=== PATIENT | male | born 1940 | race Caucasian/White ===

== ENCOUNTER 2017-06-10 09:00 | Outpatient (RCR) | payer MEDICARE, OTHER, SELFPAY ==
[2017-05-27 09:09] VITALS: BP 145/85; PULSE 105; RESP 18; TEMP 36.4; BMI 67.7
--- NOTE | 2017-05-27 11:26 | HP.PCM_ITS ---
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 Current Visit: Yes Code(s): L97.912 - Non-pressure chronic ulcer of unspecified part of right lower leg with fat layer exposed (2) Venous insufficiency Status: Chronic Current Visit: Yes Code(s): I87.2 - Venous insufficiency ( chronic) (peripheral) (3) Leg edema, right Status: Chronic Current Visit: Yes Code(s): R60.0 - Localized edema (4) Peripheral vascular disease Status: Chronic Current Visit: Yes Code(s): I73.9 - Peripheral vascular disease, unspecified (5) Type 2 diabetes mellitus with diabetic polyneuropathy Status: Chronic Current Visit: Yes Code(s): E11.42 - Type 2 diabetes mellitus with diabetic polyneuropathy (6) Malnutrition Status: Suspected Current Visit: Yes Code(s): E46 - Unspecified protein- calorie malnutrition History of Present Illness Date of Service: 05/27/17 Chief Complaint: Right leg ulcer History of Wound: This 77-year-old male with multiple comorbidities was seen today in clinic with his father for right leg wound. There is an onset of about 3 weeks ago. He reports this possibly started due to a spider bite but cannot prove this. He was [facility] at [facility] emergency room Department. He was started on Keflex and advised to discontinue doxycycline. He has been applying Silvadene and a compression dressing he reports a culture was not obtained. He denies claudication. He does have some rest paresthesias but has not been diagnosed in the past with neuropathy. He denies any other trauma or increased activity. He was provided with a 10 day course of the antibiotics. His primary care physician is Dr. Paola Adame. He admits he does scratch his legs on a regular basis. 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 Family history: Cancer, and diabetes, heart disease, hypertension Allergies/Adverse Reactions: Allergies No Known Allergies Allergy (Verified 05/27/17 09:50) Home Medications: Ambulatory Orders Medication Instructions Recorded Cephalexin [Keflex] 500 mg PO 05/27/17 Doxazosin Mesylate [Cardura] 4 mg PO QHS 05/27/17 Enalapril Maleate 10 mg PO 05/27/17 Insulin Lispro [Humalog] 16 unit 05/27/17 Lasix 40 05/27/17 Metformin HCl [Metformin HCl ER] 500 mg PO 05/27/17 Methimazole 10 mg PO 05/27/17 Metoprolol Succinate 50 mg PO 05/27/17 Warfarin [Coumadin (PBKC)] 5 mg PO DAILY 05/27/17 Smoking Status: Former smoker Review of Systems Constitutional: Denies: Chills, Weakness Cardiovascular: Reports: Edema. Denies: Claudication Musculoskeletal: Reports: Leg Pain. Denies: Joint Tenderness Skin: Reports: Pruritis, Skin Changes, Wounds Neurological: Reports: Balance problems, Numbness - Physical Exam Vital Signs Temp Pulse Resp BP 97.5 F L 105 H 18 145/85 H 05/27/17 09:09 05/27/17 09:09 05/27/17 09:09 05/27/17 09:09 General: Alert, Oriented x3, Cooperative HEENT: Atraumatic Extremities: Diminished Peripheral Pulses, Edema - Bilateral lower extremities pitting. No visible varicosities. There is hemosiderin deposits with some hyperpigmentation of bilateral lower extremities. Skin: Ulcer/ Wound - No purulence, no erythema, no streaking. There is subtle erythema periwound that is mild and diffuse. There is no crepitus on palpation in the compartments of the right lower extremity remain soft., - - Bilateral lower extremity skin is atrophic and hairless Wound Measurements and Assessment - Nurse 1 - General Ulcer Measurement Start: 05/27/17 09:09 Freq: Status: Active Protocol: Activity Type Activity Date Activity User E-Sign Co-Sign Detail Recorded Client Recorded Date Recorded By Document 05/27/17 09:09 DL [id number] 05/27/17 09:45 DL 05/27/17 09:09 Wound Center Nurse 1 [Ulcer Assessment Protocol: LAUREN.WD.LOC] #1 R [place] Cluster -Current Size (cm) - Length 9 -Current Size (cm) - Width 10 -Current Size (cm) - Depth 0.1 -Total Square Cm 90 -Photo Taken Yes -Classification - Thickness Full Thickness without Exposed Support Structure -Exudate Amt Medium (34-66%) -Exudate Type Serosanguineous -Wound Margin Distinct, Outline Attached -Granulation Amt Medium (34-66%) -Granulation Quality Red -Necrosis Amt Medium (34-66%) -Necrotic Tissue Type Adherent Slough -Structure Exposed N/A -Texture (Ro-wound Skin Appearance) Localized Edema -Moisture (Ro-wound Skin Appearance No Abnormality ) -Color (Ro-wound Skin Appearance) Erythema Rubor -Temperature (Ro-wound Skin No Abnormality Appearance) (Pt Warm) -Tenderness on Palpation (Ro-wound No Skin Appearance) -Ulcer Cleansing Wound Cleanser -Foul Odor after Cleansing No -Anesthetic Used 4% Lidocaine Solution [Edema Assessment] -Right Calf (cm) 40.5 -Right Ankle (cm) 21.3 -Left Calf (cm) 38 -Left Ankle (cm) 23.5 WC - Nurse 2 - General Ulcer CM Notes Start: 05/27/17 09:09 Freq: Status: Active Protocol: Activity Type Activity Date Activity User E-Sign Co-Sign Detail Recorded Client Recorded Date Recorded By Document 05/27/17 10:50 [id number] 05/27/17 11:15 05/27/17 10:50 Wound Center Nurse 2 [Procedure/Treatment] #1 R [place] Cluster -Time 11:09 -Correct Patient Yes -Correct Side, Site, Position Yes -Correct Procedure Yes -Procedure Performed Yes -Type of Procedure Debridement -Clinical Debridement Subcutaneous -Post Debridement Size (cm) - Length 9.1 -Post Debridement Size (cm) - Width 10.1 -Post Debridement Size (cm) - Depth 0.1 -Total Square Cm 91.91 -Wound/Ulcer Outcome Not Healed -Ulcer Cleansing Rinsed/ Irrigated with Saline -Foul Odor after Cleansing No -Bioengineered Tissue No -Topical Lidocaine (%) 4 -Bleeding Controlled with Pressure -Treatment Response Procedure Tolerated Well [See Physician Procedure note for Specifics] Pain Scale: 0-10 Numeric [Pain] -Is Patient Pain Free? Yes Musculoskeletal: No Tenderness to Palpation of Joints or Extremities, No Muscle Wasting, Muscle Wasting, - - No exposed bone or deep tissue with wound debridement Neurological: - - Altered sensation with 10 g Schwab Elda monofilament bilateral feet noted to 3 out of 5 randomly selected sites Psych/Mental Status: Normal Affect, Appropriate Debridement Note Post-Debridement Measurements/Treatment WC - Nurse 2 - General Ulcer CM Notes Start: 05/27/17 09:09 Freq: Status: Active Protocol: Activity Type Activity Date Activity User E-Sign Co-Sign Detail Recorded Client Recorded Date Recorded By Document 05/27/17 10:50 [id number] 05/27/17 11:15 05/27/17 10:50 Wound Center Nurse 2 #1 R [place] Cluster -Time 11:09 -Correct Patient Yes -Correct Side, Site, Position Yes -Correct Procedure Yes -Procedure Performed Yes -Type of Procedure Debridement -Clinical Debridement Subcutaneous -Post Debridement Size (cm) - Length 9.1 -Post Debridement Size (cm) - Width 10.1 -Post Debridement Size (cm) - Depth 0.1 -Total Square Cm 91.91 -Wound/Ulcer Outcome Not Healed -Ulcer Cleansing Rinsed/ Irrigated with Saline -Foul Odor after Cleansing No -Bioengineered Tissue No -Topical Lidocaine (%) 4 -Bleeding Controlled with Pressure -Treatment Response Procedure Tolerated Well Pain Scale: 0-10 Numeric Is Patient Pain Free? Yes Wound debrided: leg Laterality: Right Wound Grade/Stage: grade 1 Type of Debridement: Excisional debridement Anesthesia Used: 4% Lidocaine Solution Depth: in the subcutaneous layer Percentage of wound debrided: 100 Instrument Used: #15 blade Tissue Removed: Fibrous, devitalized subcutaneous, biofilm, slough Severity: Fat Layer Exposed Amount of bleeding with debridement: Mild Bleeding Controlled with: Pressure Patient tolerated procedure well Assessment/Plan Active Problems Ulcer of right lower extremity with fat layer exposed (Chronic) Venous insufficiency (Chronic) Leg edema, right (Chronic) Peripheral vascular disease (Chronic) Type 2 diabetes mellitus with diabetic polyneuropathy (Chronic) Assessment: right leg ulcer. leg edema. rule out venous insufficiency or peripheral vascular disease. diabetes with neurapathy. malnutrition suspected Plan: I reviewed and discussed the case with this patient as well as his son. Subcutaneous excisional debridement was performed as noted in the clinical panel. I reviewed the basics of wound healing and his treatment plan. I recommend obtaining the following diagnostic data to better understand his medical condition: CBC, CMP, hemoglobin A1c, venous Doppler with reflex evaluation, noninvasive arterial study. I recommend daily dressing care with hydrogel and Adaptic. I recommend compression consisting of Tubigrip. More aggressive compression will be considered after his vascular studies are completed. To elevate legs at rest and to avoid idle sitting or standing. To complete Keflex antibiotic course. A tissue culture was obtained today for MRSA , aerobic and anaerobic. I recommend nutritional supplementation and a prescription for Pedro was provided to optimize healing. He understands improved sugar control is also necessary for improved wound healing. To return to clinic in 1 week or call sooner if he has any questions or concerns. I reviewed his file from [facility] visit.
[2017-05-28 12:07] LABS: M R Staph aureus DNA By PCR Negative (Negative); Probe Check PASS; Specimen Processing Control PASS; Staph aureus DNA By PCR NEGATIVE (Negative)
[2017-06-03 11:02] VITALS: BP 151/93; PULSE 107; RESP 18; TEMP 36.7; BMI 67.7
--- NOTE | 2017-06-03 13:08 | PCM.WC.PN ---
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 Current Visit: Yes Code(s): L97.912 - Non-pressure chronic ulcer of unspecified part of right lower leg with fat layer exposed (2) Venous insufficiency Status: Chronic Current Visit: Yes Code(s): I87.2 - Venous insufficiency (chronic) (peripheral) (3) Leg edema, right Status: Chronic Current Visit: Yes Code(s): R60.0 - Localized edema (4) Peripheral vascular disease Status: Chronic Current Visit: Yes Code(s): I73.9 - Peripheral vascular disease, unspecified (5) Type 2 diabetes mellitus with diabetic polyneuropathy Status: Chronic Current Visit: Yes Code(s): E11.42 - Type 2 diabetes mellitus with diabetic polyneuropathy (6) Malnutrition Status: Suspected Current Visit: Yes Code(s): E46 - Unspecified protein-calorie malnutrition Type of Wound Date of Service: 06/03/17 Chief Complaint: Right leg ulcer History of Wound: This 77-year-old male with multiple comorbidities was seen today in clinic with his father for right leg wound. There is an onset of about 4 weeks ago. He denies fever, chill, nausea, vomiting, pain. He was not able to get his vascular studies or labs drawn yet. He is scheduled for June 14, 2017 for the vascular studies. His family helps him change his dressings as advised. Progress of Wound: Stable - Physical Exam Vital Signs Temp Pulse Resp BP 98.0 F 107 H 18 151/93 H 06/03/17 11:02 06/03/17 11:02 06/03/17 11:02 06/03/17 11:02 General: Alert, Oriented x3, Cooperative Extremities: No cyanosis, Capillary Refill Less than 3 Seconds, No Calf Tenderness - Negative Ricki and Urena right, Edema Skin: Ulcer/ Wound - Atrophic skin with scant excoriations. The wound bases are fibrous and pale granular base. There is no erythema, no maceration, no odor, no infection, no crepitus. Wound Measurements and Assessment WC - Nurse 1 - General Ulcer Measurement Start: 05/27/17 09:09 Freq: Status: Active Protocol: Activity Type Activity Date Activity User E-Sign Co-Sign Detail Recorded Client Recorded Date Recorded By Document 06/03/17 11:02 [id number] 06/03/17 11:16 06/03/17 11:02 Wound Center Nurse 1 [Ulcer Assessment] #1 R [place] Cluster -Combined with other wound No -Current Size (cm) - Length 8.0 -Current Size (cm) - Width 8.0 -Current Size (cm) - Depth 0.1 -Total Square Cm 64.00 -Photo Taken No -Epithelialization Small 1-33% -Tunneling No -Undermining/Tunneling No -Circular Undermining No -Exudate Amt Small (1-33%) -Exudate Type Serosanguineous -Wound Margin Flat & Intact -Granulation Amt Small (1-33%) -Granulation Quality [place] -Slough/Fibrin Yes -Necrosis Amt Large (67-100%) -Necrotic Tissue Type Adherent Slough -Structure Exposed N/A -Texture (Ro-wound Skin Appearance) Assessed Localized Edema Scarring -Moisture (Ro-wound Skin Appearance Assessed ) Dry/Scaly -Color (Ro-wound Skin Appearance) Assessed -Temperature (Ro-wound Skin No Abnormality Appearance) (Pt Warm) -Ulcer Cleansing Rinsed/ Irrigated with Saline -Foul Odor after Cleansing No -Anesthetic Used 4% Lidocaine Solution [Edema Assessment] -Lower Limb Edema Present Yes -Right Calf (cm) 37.6 -Right Ankle (cm) 23.3 -Left Calf (cm) 34.3 -Left Ankle (cm) 22.8 WC - Nurse 2 - General Ulcer CM Notes Start: 05/27/17 09:09 Freq: Status: Active Protocol: Activity Type Activity Date Activity User E-Sign Co-Sign Detail Recorded Client Recorded Date Recorded By Document 06/03/17 11:33 [id number] 06/03/17 11:37 06/03/17 11:33 Wound Center Nurse 2 [Procedure/Treatment] #1 R [place] Cluster -Time 11:35 -Correct Patient Yes -Correct Side, Site, Position Yes -Correct Procedure Yes -Procedure Performed Yes -Type of Procedure Debridement -Clinical Debridement Subcutaneous -Post Debridement Size (cm) - Length 8.1 -Post Debridement Size (cm) - Width 8.1 -Post Debridement Size (cm) - Depth 0.1 -Total Square Cm 65.61 -Wound/Ulcer Outcome Not Healed -Ulcer Cleansing Rinsed/ Irrigated with Saline -Foul Odor after Cleansing No -Bioengineered Tissue No -Bleeding Controlled with Pressure -Treatment Response Procedure Tolerated Well [See Physician Procedure note for Specifics] Pain Scale: 0-10 Numeric [Pain] -Is Patient Pain Free? Yes Musculoskeletal: No Tenderness to Palpation of Joints or Extremities, Muscle Wasting Neurological: - - Lack of epicritic sensation light touch Psych/Mental Status: Normal Affect, Appropriate Debridement Note Post-Debridement Measurements/Treatment WC - Nurse 2 - General Ulcer CM Notes Start: 05/27/17 09:09 Freq: Status: Active Protocol: Activity Type Activity Date Activity User E-Sign Co-Sign Detail Recorded Client Recorded Date Recorded By Document 05/27/17 10:50 TM [id number] 05/27/17 11:15 TM Document 06/03/17 11:33 [id number] 06/03/17 11:37 05/27/17 06/03/17 10:50 11:33 Wound Center Nurse 2 #1 Adalberto Bust[place]os Cluster -Time 11:09 11:35 -Correct Patient Yes Yes -Correct Side, Site, Position Yes Yes -Correct Procedure Yes Yes -Procedure Performed Yes Yes -Type of Procedure Debridement Debridement -Clinical Debridement Subcutaneous Subcutaneous -Post Debridement Size (cm) - Length 9.1 8.1 -Post Debridement Size (cm) - Width 10.1 8.1 -Post Debridement Size (cm) - Depth 0.1 0.1 -Total Square Cm 91.91 65.61 -Wound/Ulcer Outcome Not Healed Not Healed -Ulcer Cleansing Rinsed/ Rinsed/ Irrigated with Irrigated with Saline Saline -Foul Odor after Cleansing No No -Bioengineered Tissue No No -Topical Lidocaine (%) 4 -Bleeding Controlled with Pressure Pressure -Treatment Response Procedure Procedure Tolerated Well Tolerated Well Pain Scale: 0-10 Numeric Is Patient Pain Free? 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 leg edema. rule out venous insufficiency or peripheral vascular disease. diabetes with neurapathy. malnutrition suspected Plan: I reviewed and discussed the case with this patient as well as his son. Subcutaneous excisional debridement was performed as noted in the clinical panel. I reviewed the basics of wound healing and his treatment plan. I recommend obtaining the following diagnostic data to better understand his medical condition: CBC, CMP, hemoglobin A1c, venous Doppler with reflex evaluation, noninvasive arterial study. These are all pending. I recommend daily dressing care with hydrogel and Adaptic. Application and approval for advanced wound care product epi fix was initiated and this is pending to facilitate healing. I recommend compression consisting of Tubigrip. More aggressive compression will be considered after his vascular studies are completed. To elevate legs at rest and to avoid idle sitting or standing. Additional antibiotics are not recommended at this time and there are lack of clinical signs of infection. A tissue culture was obtained last week for evaluation for MRSA, aerobic and anaerobic. No bacterial growth were identified. I recommend nutritional supplementation and a prescription for Pedro was provided to optimize healing. To continue up to 2 daily. He understands improved glycemic control is also necessary for improved wound healing. To return to clinic in 1 week or call sooner if he has any questions or concerns. I reviewed his file from [facility] visit.
--- NOTE | 2017-06-03 13:12 | PN.PCM_ITS ---
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 Current Visit: Yes Code(s): L97.912 - Non-pressure chronic ulcer of unspecified part of right lower leg with fat layer exposed (2) Venous insufficiency Status: Chronic Current Visit: Yes Code(s): I87.2 - Venous insufficiency ( chronic) (peripheral) (3) Leg edema, right Status: Chronic Current Visit: Yes Code(s): R60.0 - Localized edema (4) Peripheral vascular disease Status: Chronic Current Visit: Yes Code(s): I73.9 - Peripheral vascular disease, unspecified (5) Type 2 diabetes mellitus with diabetic polyneuropathy Status: Chronic Current Visit: Yes Code(s): E11.42 - Type 2 diabetes mellitus with diabetic polyneuropathy (6) Malnutrition Status: Suspected Current Visit: Yes Code(s): E46 - Unspecified protein- calorie malnutrition Type of Wound Date of Service: 06/03/17 Chief Complaint: Right leg ulcer History of Wound: This 77-year-old male with multiple comorbidities was seen today in clinic with his father for right leg wound. There is an onset of about 4 weeks ago. He denies fever, chill, nausea, vomiting, pain. He was not able to get his vascular studies or labs drawn yet. He is scheduled for June 14, 2017 for the vascular studies. His family helps him change his dressings as advised. Progress of Wound: Stable - Physical Exam Vital Signs Temp Pulse Resp BP 98.0 F 107 H 18 151/93 H 06/03/17 11:02 06/03/17 11:02 06/03/17 11:02 06/03/17 11:02 General: Alert, Oriented x3, Cooperative Extremities: No cyanosis, Capillary Refill Less than 3 Seconds, No Calf Tenderness - Negative Ricki and Urena right, Edema Skin: Ulcer/ Wound - Atrophic skin with scant excoriations. The wound bases are fibrous and pale granular base. There is no erythema, no maceration, no odor, no infection, no crepitus. Wound Measurements and Assessment WC - Nurse 1 - General Ulcer Measurement Start: 05/27/17 09:09 Freq: Status: Active Protocol: Activity Type Activity Date Activity User E-Sign Co-Sign Detail Recorded Client Recorded Date Recorded By Document 06/03/17 11:02 [id number] 06/03/17 11:16 06/03/17 11:02 Wound Center Nurse 1 [Ulcer Assessment] #1 R [place] Cluster -Combined with other wound No -Current Size (cm) - Length 8.0 -Current Size (cm) - Width 8.0 -Current Size (cm) - Depth 0.1 -Total Square Cm 64.00 -Photo Taken No -Epithelialization Small 1-33% -Tunneling No -Undermining/Tunneling No -Circular Undermining No -Exudate Amt Small (1-33%) -Exudate Type Serosanguineous -Wound Margin Flat & Intact -Granulation Amt Small (1-33%) -Granulation Quality Mallard -Slough/Fibrin Yes -Necrosis Amt Large (67-100%) -Necrotic Tissue Type Adherent Slough -Structure Exposed N/A -Texture (Ro-wound Skin Appearance) Assessed Localized Edema Scarring -Moisture (Ro-wound Skin Appearance Assessed ) Dry/Scaly -Color (Ro-wound Skin Appearance) Assessed -Temperature (Ro-wound Skin No Abnormality Appearance) (Pt Warm) -Ulcer Cleansing Rinsed/ Irrigated with Saline -Foul Odor after Cleansing No -Anesthetic Used 4% Lidocaine Solution [Edema Assessment] -Lower Limb Edema Present Yes -Right Calf (cm) 37.6 -Right Ankle (cm) 23.3 -Left Calf (cm) 34.3 -Left Ankle (cm) 22.8 WC - Nurse 2 - General Ulcer CM Notes Start: 05/27/17 09:09 Freq: Status: Active Protocol: Activity Type Activity Date Activity User E-Sign Co-Sign Detail Recorded Client Recorded Date Recorded By Document 06/03/17 11:33 [id number] 06/03/17 11:37 06/03/17 11:33 Wound Center Nurse 2 [Procedure/Treatment] #1 R [place] Cluster -Time 11:35 -Correct Patient Yes -Correct Side, Site, Position Yes -Correct Procedure Yes -Procedure Performed Yes -Type of Procedure Debridement -Clinical Debridement Subcutaneous -Post Debridement Size (cm) - Length 8.1 -Post Debridement Size (cm) - Width 8.1 -Post Debridement Size (cm) - Depth 0.1 -Total Square Cm 65.61 -Wound/Ulcer Outcome Not Healed -Ulcer Cleansing Rinsed/ Irrigated with Saline -Foul Odor after Cleansing No -Bioengineered Tissue No -Bleeding Controlled with Pressure -Treatment Response Procedure Tolerated Well [See Physician Procedure note for Specifics] Pain Scale: 0-10 Numeric [Pain] -Is Patient Pain Free? Yes Musculoskeletal: No Tenderness to Palpation of Joints or Extremities, Muscle Wasting Neurological: - - Lack of epicritic sensation light touch Psych/Mental Status: Normal Affect, Appropriate Debridement Note Post-Debridement Measurements/Treatment WC - Nurse 2 - General Ulcer CM Notes Start: 05/27/17 09:09 Freq: Status: Active Protocol: Activity Type Activity Date Activity User E-Sign Co-Sign Detail Recorded Client Recorded Date Recorded By Document 05/27/17 10:50 TM [id number] 05/27/17 11:15 TM Document 06/03/17 11:33 JF [id number] 06/03/17 11:37 05/27/17 06/03/17 10:50 11:33 Wound Center Nurse 2 #1 Adalberto Bustillos Cluster -Time 11:09 11:35 -Correct Patient Yes Yes -Correct Side, Site, Position Yes Yes -Correct Procedure Yes Yes -Procedure Performed Yes Yes -Type of Procedure Debridement Debridement -Clinical Debridement Subcutaneous Subcutaneous -Post Debridement Size (cm) - Length 9.1 8.1 -Post Debridement Size (cm) - Width 10.1 8.1 -Post Debridement Size (cm) - Depth 0.1 0.1 -Total Square Cm 91.91 65.61 -Wound/Ulcer Outcome Not Healed Not Healed -Ulcer Cleansing Rinsed/ Rinsed/ Irrigated with Irrigated with Saline Saline -Foul Odor after Cleansing No No -Bioengineered Tissue No No -Topical Lidocaine (%) 4 -Bleeding Controlled with Pressure Pressure -Treatment Response Procedure Procedure Tolerated Well Tolerated Well Pain Scale: 0-10 Numeric Is Patient Pain Free? 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 leg edema. rule out venous insufficiency or peripheral vascular disease. diabetes with neurapathy. malnutrition suspected Plan: I reviewed and discussed the case with this patient as well as his son. Subcutaneous excisional debridement was performed as noted in the clinical panel. I reviewed the basics of wound healing and his treatment plan. I recommend obtaining the following diagnostic data to better understand his medical condition: CBC, CMP, hemoglobin A1c, venous Doppler with reflex evaluation, noninvasive arterial study. These are all pending. I recommend daily dressing care with hydrogel and Adaptic. Application and approval for advanced wound care product epi fix was initiated and this is pending to facilitate healing. I recommend compression consisting of Tubigrip. More aggressive compression will be considered after his vascular studies are completed. To elevate legs at rest and to avoid idle sitting or standing. Additional antibiotics are not recommended at this time and there are lack of clinical signs of infection. A tissue culture was obtained last week for evaluation for MRSA, aerobic and anaerobic. No bacterial growth were identified. I recommend nutritional supplementation and a prescription for Pedro was provided to optimize healing. To continue up to 2 daily. He understands improved glycemic control is also necessary for improved wound healing. To return to clinic in 1 week or call sooner if he has any questions or concerns. I reviewed his file from [facility] visit.
[2017-06-10 09:17] VITALS: BP 148/80; PULSE 68; RESP 18; TEMP 35.5; BMI 67.7
--- NOTE | 2017-06-10 11:44 | PN.PCM_ITS ---
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 Current Visit: Yes Code(s): L97.912 - Non-pressure chronic ulcer of unspecified part of right lower leg with fat layer exposed (2) Venous insufficiency Status: Chronic Current Visit: Yes Code(s): I87.2 - Venous insufficiency ( chronic) (peripheral) (3) Leg edema, right Status: Chronic Current Visit: Yes Code(s): R60.0 - Localized edema (4) Peripheral vascular disease Status: Chronic Current Visit: Yes Code(s): I73.9 - Peripheral vascular disease, unspecified (5) Type 2 diabetes mellitus with diabetic polyneuropathy Status: Chronic Current Visit: Yes Code(s): E11.42 - Type 2 diabetes mellitus with diabetic polyneuropathy (6) Malnutrition Status: Suspected Current Visit: Yes Code(s): E46 - Unspecified protein- calorie malnutrition Type of Wound Date of Service: 06/10/17 Chief Complaint: Right leg ulcer History of Wound: This 77-year-old male with multiple comorbidities was seen today in clinic with his father for right leg wound. There is an onset of about 4 weeks ago. He was not able to get his vascular studies or labs drawn yet. He is scheduled for June 14, 2017 for the vascular studies. His family helps him change his dressings as advised. He is with his son today. Progress of Wound: Stable - Physical Exam Vital Signs Temp Pulse Resp BP 96 F L 68 18 148/80 H 06/10/17 09:17 06/10/17 09:17 06/10/17 09:17 06/10/17 09:17 General: Alert, Oriented x3, Cooperative Extremities: No cyanosis, Capillary Refill Less than 3 Seconds, No Calf Tenderness, Diminished Peripheral Pulses, Edema Skin: Ulcer/ Wound - No purulence, no erythema, streaking, no odor. Peripheral skin is atrophic Wound Measurements and Assessment WC - Nurse 1 - General Ulcer Measurement Start: 05/27/17 09:09 Freq: Status: Active Protocol: Activity Type Activity Date Activity User E-Sign Co-Sign Detail Recorded Client Recorded Date Recorded By Document 06/10/17 09:17 [facility] [id number] 06/10/17 09:22 [facility] 06/10/17 09:17 Wound Center Nurse 1 [Ulcer Assessment] #1 R [place] Cluster -Combined with other wound No -Current Size (cm) - Length 8 -Current Size (cm) - Width 8 -Current Size (cm) - Depth 0.1 -Total Square Cm 64 -Photo Taken No -Epithelialization None Present -Tunneling No -Undermining/Tunneling No -Exudate Amt Small (1-33%) -Exudate Type Serosanguineous -Wound Margin Distinct, Outline Attached -Granulation Amt Small (1-33%) -Granulation Quality Red -Slough/Fibrin Yes -Necrosis Amt Large (67-100%) -Necrotic Tissue Type Adherent Slough -Structure Exposed None/Limited to Skin Breakdown -Texture (Ro-wound Skin Appearance) Scarring -Moisture (Ro-wound Skin Appearance Assessed ) Dry/Scaly -Color (Ro-wound Skin Appearance) Erythema -Temperature (Ro-wound Skin No Abnormality Appearance) (Pt Warm) -Tenderness on Palpation (Ro-wound No Skin Appearance) -Ulcer Cleansing Rinsed/ Irrigated with Saline -Foul Odor after Cleansing No -Anesthetic Used 4% Lidocaine Solution [Edema Assessment] -Lower Limb Edema Present Yes -Right Calf (cm) 36.3 -Right Ankle (cm) 22.7 WC - Nurse 2 - General Ulcer CM Notes Start: 05/27/17 09:09 Freq: Status: Active Protocol: Activity Type Activity Date Activity User E-Sign Co-Sign Detail Recorded Client Recorded Date Recorded By Document 06/10/17 09:44 GEOFF [id number] 06/10/17 09:46 GEOFF 06/10/17 09:44 Wound Center Nurse 2 [Procedure/Treatment] #1 R [place] Cluster -Time 09:44 -Correct Patient Yes -Correct Side, Site, Position Yes -Correct Procedure Yes -Procedure Performed Yes -Type of Procedure Debridement -Clinical Debridement Subcutaneous -Post Debridement Size (cm) - Length 8.1 -Post Debridement Size (cm) - Width 8.1 -Post Debridement Size (cm) - Depth 0.1 -Total Square Cm 65.61 -Wound/Ulcer Outcome Not Healed -Ulcer Cleansing Rinsed/ Irrigated with Saline -Foul Odor after Cleansing No -Bioengineered Tissue Yes -Type of bioengineered Tissue EPIFIX -Expiration Date 03/13/22 -Product Lot Number [id number] -Percent Used 100 -Saline Lot Number [id number] -Bleeding Controlled with Pressure -Treatment Response Procedure Tolerated Well [See Physician Procedure note for Specifics] Pain Scale: 0-10 Numeric [Pain] -Is Patient Pain Free? Yes Neurological: - - Lack of epicritic sensation light touch Psych/Mental Status: Normal Affect, Appropriate Debridement Note Post-Debridement Measurements/Treatment WC - Nurse 2 - General Ulcer CM Notes Start: 05/27/17 09:09 Freq: Status: Active Protocol: Activity Type Activity Date Activity User E-Sign Co-Sign Detail Recorded Client Recorded Date Recorded By Document 05/27/17 10:50 TM [id number] 05/27/17 11:15 TM Document 06/03/17 11:33 JF [id number] 06/03/17 11:37 Document 06/10/17 09:44 [id number] 06/10/17 09:46 05/27/17 06/03/17 06/10/17 10:50 11:33 09:44 Wound Center Nurse 2 #1 R [place] Cluster -Time 11:09 11:35 09:44 -Correct Patient Yes Yes Yes -Correct Side, Site, Position Yes Yes Yes -Correct Procedure Yes Yes Yes -Procedure Performed Yes Yes Yes -Type of Procedure Debridement Debridement Debridement -Clinical Debridement Subcutaneous Subcutaneous Subcutaneous -Post Debridement Size (cm) - Length 9.1 8.1 8.1 -Post Debridement Size (cm) - Width 10.1 8.1 8.1 -Post Debridement Size (cm) - Depth 0.1 0.1 0.1 -Total Square Cm 91.91 65.61 65.61 -Wound/Ulcer Outcome Not Healed Not Healed Not Healed -Ulcer Cleansing Rinsed/ Rinsed/ Rinsed/ Irrigated with Irrigated with Irrigated with Saline Saline Saline -Foul Odor after Cleansing No No No -Bioengineered Tissue No No Yes -Type of bioengineered Tissue EPIFIX -Expiration Date 03/13/22 -Product Lot Number [id number] -Percent Used 100 -Saline Lot Number [id number] -Topical Lidocaine (%) 4 -Bleeding Controlled with Pressure Pressure Pressure -Treatment Response Procedure Procedure Procedure Tolerated Well Tolerated Well Tolerated Well Pain Scale: 0-10 Numeric Is Patient Pain Free? Yes Yes Yes Wound debrided: leg cluster Laterality: Right - g Wound Grade/Stage: grade 1 Type of Debridement: Excisional debridement Anesthesia Used: 4% Lidocaine Solution Depth: in the subcutaneous layer Percentage of wound debrided: 100 Instrument Used: #15 blade Tissue Removed: fibrous, devitalized subcutaneous, biofilm, slough Severity: Fat Layer Exposed Amount of bleeding with debridement: Mild Bleeding Controlled with: Pressure Patient tolerated procedure well Assessment/Plan Active Problems Ulcer of right lower extremity with fat layer exposed (Chronic) Venous insufficiency (Chronic) Leg edema, right (Chronic) Peripheral vascular disease (Chronic) Type 2 diabetes mellitus with diabetic polyneuropathy (Chronic) Assessment: right leg ulcer with fat layer exposed. leg edema. rule out venous insufficiency or peripheral vascular disease. diabetes with neurapathy. malnutrition suspected Plan: I reviewed and discussed the case with this patient as well as his son. Subcutaneous excisional debridement was performed as noted in the clinical panel. Verbal consent was obtained for application of epi fix. This was applied according to standard protocol and was secured in place with Steri- Strips and wound veil. He tolerated this well. I reviewed the basics of wound healing and his treatment plan. I recommend obtaining the following diagnostic data to better understand his medical condition: CBC, CMP, hemoglobin A1c, venous Doppler with reflex evaluation, noninvasive arterial study. He was encouraged to complete the studies to improve his comprehensive treatment plan. I recommend compression consisting of Tubigrip. More aggressive compression will be considered after his vascular studies are completed. To elevate legs at rest and to avoid idle sitting or standing. Additional antibiotics are not recommended at this time and there are lack of clinical signs of infection. A tissue culture was obtained for evaluation for MRSA, aerobic and anaerobic. No bacterial growth were identified. I recommend nutritional supplementation and a prescription for Pedro was provided to optimize healing. To continue up to 2 daily. He understands improved glycemic control is also necessary for improved wound healing. To return to clinic in 1 week or call sooner if he has any questions or concerns. I reviewed his file from [facility] visit.
== END 2017-06-10 23:59 ==
LOC: WC 09:00
PROVIDERS: PCP Internal Medicine; Visit Provider Podiatrist
DX: E11.622 Type 2 diabetes mellitus with other skin ulcer (principal); E11.42 Type 2 diabetes mellitus with diabetic polyneuropathy; E11.51 Type 2 diabetes mellitus with diabetic peripheral angiopathy without gangrene; L97.812 Non-pressure chronic ulcer of other part of right lower leg with fat layer exposed; R60.0 Localized edema; E78.5 Hyperlipidemia, unspecified; Z85.46 Personal history of malignant neoplasm of prostate; Z86.73 Personal history of transient ischemic attack (TIA), and cerebral infarction without residual deficits; I10 Essential (primary) hypertension; Z79.899 Other long term (current) drug therapy; Z79.4 Long term (current) use of insulin; Z87.891 Personal history of nicotine dependence; L29.9 Pruritus, unspecified; R09.89 Other specified symptoms and signs involving the circulatory and respiratory systems
CPT/HCPCS: 11042; 11045; 15271; 87070; 87075; 87205; 87640; 99203; Q4131; G0463

== ENCOUNTER → 2017-06-11 09:50 | Outpatient (CLI) | payer MEDICARE, OTHER, SELFPAY ==
--- NOTE | 2017-06-11 09:54 | VDLE_ITS ---
Reason For Study: Non-healing wound RIGHT LEFT CFV is compressible, spontaneous, phasic, CFV is compressible, spontaneous, phasic, competent and demonstrates normal competent, and demonstrates normal augmentation. augmentation. FV is compressible, spontaneous, phasic, FV is compressible, spontaneous, phasic, competent and demonstrates normal competent and demonstrates normal augmentation. augmentation. POP V is compressible, spontaneous, phasic, POP V is compressible, spontaneous, phasic, competent and demonstrates normal competent and demonstrates normal augmentation. augmentation. T/P Trunk is compressible. T/P Trunk is compressible. PTV is compressible. PTV is compressible. RT PerV is compressible. LT PerV is compressible. SFJ is competent SFJ is INCOMPETENT with reflux greater GSV is INCOMPETENT with reflux greater than .5 sec than .5 sec and diameter of .40 x .40 cm GSV is competent SSV is competent. SSV is competent. Procedure Exam performed in department. A preliminary report was called and/or faxed to [facility]. Interpretation Summary Deep veins of the lower extremities are bilaterally patent and compressible segmentally. There is no evidence of deep vein thrombosis on either side. Valvular competence appears intact within the proximal deep venous systems bilaterally. The greater saphenous veins appear bilaterally patent and compressible segmentally. The right sapheno-femoral junction is competent . The left sapheno- femoral junction is incompetent . The right greater saphenous vein appears segmentally incompetent. The left greater saphenous vein appears segmentally competent. Small saphenous veins are patent and competent bilaterally. Ordering Physician: Angelia Castro Referring Physician: Angelia Castro Performed By: Nichole Madrigal RVT
--- NOTE | 2017-06-14 11:27 | LEAS ---
Arterial Study - Arterial Study Arterial Study: This is a 77-year-old male with a history of diabetes mellitus and peripheral arterial disease. The patient presents with a chronic nonhealing wound of the right lower extremity. Suspecting the presence of atherosclerotic peripheral arterial occlusive disease, the patient was brought to the noninvasive vascular laboratory at this time for the purpose of bilateral noninvasive lower extremity arterial assessment. Doppler signal assessment was used to evaluate the pulses at ankle level bilaterally. On the right, the posterior tibial and dorsalis pedis pulses were biphasic. On the left, the posterior tibial and dorsalis pedis pulses were triphasic. Segmental limb pressures were obtained bilaterally. The right ankle pressure, as determined by posterior tibial pulse, was measured at 132 mmHg. The right ankle pressure, as determined by dorsalis pedis pulse, was measured at 155 mmHg. The right digital pressure was measured at 98 mmHg. The left ankle pressure, as determined by posterior tibial pulse, was measured at 155 mmHg. The left ankle pressure, as determined by dorsalis pedis pulse, was measured at 145 mmHg. The left digital pressure was measured at 117 mmHg. Pulse-volume recordings were obtained bilaterally and segmentally. Waveform amplitudes appeared to be satisfactory at all levels bilaterally, including low thigh, calf, ankle, and digital levels. Resting ankle-brachial indices were calculated bilaterally. The resting right ankle-brachial index was calculated to be 1.02. The resting left ankle-brachial index was calculated to be 1.02. Digital-brachial indices were calculated bilaterally. The right digital-brachial index was calculated to be 0.64. The left digital-brachial index was calculated to be 0.77. Impression: Based upon the findings of this resting noninvasive lower extremity arterial study, arterial perfusion to ankle level appears to be normal bilaterally. Biphasic waveforms are noted at ankle level on the right. Triphasic waveforms are noted at ankle level on the left. Resting ankle-brachial indices are bilaterally normal. The right digital-brachial index is mildly diminished, which may be indicative of mild, distal, small-vessel arterial occlusive disease in the right lower extremity, for which clinical correlation is advised. The left digital-brachial index is normal.
--- NOTE | 2017-06-14 11:32 | LEAS_ITS ---
Arterial Study - Arterial Study Arterial Study: This is a 77-year-old male with a history of diabetes mellitus and peripheral arterial disease. The patient presents with a chronic nonhealing wound of the right lower extremity. Suspecting the presence of atherosclerotic peripheral arterial occlusive disease, the patient was brought to the noninvasive vascular laboratory at this time for the purpose of bilateral noninvasive lower extremity arterial assessment. Doppler signal assessment was used to evaluate the pulses at ankle level bilaterally. On the right, the posterior tibial and dorsalis pedis pulses were biphasic. On the left, the posterior tibial and dorsalis pedis pulses were triphasic. Segmental limb pressures were obtained bilaterally. The right ankle pressure, as determined by posterior tibial pulse, was measured at 132 mmHg. The right ankle pressure, as determined by dorsalis pedis pulse, was measured at 155 mmHg. The right digital pressure was measured at 98 mmHg. The left ankle pressure, as determined by posterior tibial pulse, was measured at 155 mmHg. The left ankle pressure, as determined by dorsalis pedis pulse, was measured at 145 mmHg. The left digital pressure was measured at 117 mmHg. Pulse-volume recordings were obtained bilaterally and segmentally. Waveform amplitudes appeared to be satisfactory at all levels bilaterally, including low thigh, calf, ankle, and digital levels. Resting ankle-brachial indices were calculated bilaterally. The resting right ankle-brachial index was calculated to be 1.02. The resting left ankle- brachial index was calculated to be 1.02. Digital-brachial indices were calculated bilaterally. The right digital- brachial index was calculated to be 0.64. The left digital-brachial index was calculated to be 0.77. Impression: Based upon the findings of this resting noninvasive lower extremity arterial study, arterial perfusion to ankle level appears to be normal bilaterally. Biphasic waveforms are noted at ankle level on the right. Triphasic waveforms are noted at ankle level on the left. Resting ankle- brachial indices are bilaterally normal. The right digital-brachial index is mildly diminished, which may be indicative of mild, distal, small-vessel arterial occlusive disease in the right lower extremity, for which clinical correlation is advised. The left digital-brachial index is normal.
== END ==
PROVIDERS: Family Provider Internal Medicine; PCP Internal Medicine; Visit Provider Podiatrist
DX: I73.89 Other specified peripheral vascular diseases (principal); I87.2 Venous insufficiency (chronic) (peripheral); L97.819 Non-pressure chronic ulcer of other part of right lower leg with unspecified severity; R60.0 Localized edema; M79.604 Pain in right leg; M79.605 Pain in left leg
CPT/HCPCS: 93923; 93970

== ENCOUNTER 2017-07-08 08:00 | Outpatient (RCR) | payer MEDICARE, OTHER, SELFPAY ==
[2017-06-11 01:10] VITALS: PULSE 68; RESP 18; TEMP 35.5
[2017-06-17 09:55] VITALS: BP 152/72; PULSE 91; RESP 18; TEMP 36.3
--- NOTE | 2017-06-17 11:38 | PCM.WC.PN ---
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 Current Visit: Yes Code(s): L97.912 - Non-pressure chronic ulcer of unspecified part of right lower leg with fat layer exposed (2) Venous insufficiency Status: Chronic Current Visit: Yes Code(s): I87.2 - Venous insufficiency (chronic) (peripheral) (3) Leg edema, right Status: Chronic Current Visit: Yes Code(s): R60.0 - Localized edema (4) Peripheral vascular disease Status: Ruled-out Current Visit: Yes Code(s): I73.9 - Peripheral vascular disease, unspecified (5) Type 2 diabetes mellitus with diabetic polyneuropathy Status: Chronic Current Visit: Yes Code(s): E11.42 - Type 2 diabetes mellitus with diabetic polyneuropathy (6) Malnutrition Status: Suspected Current Visit: Yes Code(s): E46 - Unspecified protein-calorie malnutrition Type of Wound Date of Service: 06/17/17 Chief Complaint: Right leg ulcer History of Wound: This 77-year-old male with multiple comorbidities was seen today in clinic with his son for right leg wound. He obtained his studies is recommended. He denies fever, chill, nausea, vomiting. His wound is painful during the debridement process. He had an epi fix advanced wound care product applied last week. Progress of Wound: Improving - Physical Exam Vital Signs Temp Pulse Resp BP 97.3 F L 91 18 152/72 H 06/17/17 09:55 06/17/17 09:55 06/17/17 09:55 06/17/17 09:55 General: Alert, Oriented x3, Cooperative Extremities: No cyanosis, Capillary Refill Less than 3 Seconds, No Calf Tenderness, Edema, Peripheral Pulses Normal Skin: Ulcer/ Wound - No purulence, no erythema, no streaking, no odor, no necrosis, no infection. The skin is hairless and atrophic to the right lower extremity Wound Measurements and Assessment WC - Nurse 1 - General Ulcer Measurement Start: 06/17/17 09:55 Freq: Status: Active Protocol: Activity Type Activity Date Activity User E-Sign Co-Sign Detail Recorded Client Recorded Date Recorded By Document 06/17/17 09:55 GEOFF [id number] 06/17/17 09:58 GEOFF 06/17/17 09:55 Wound Center Nurse 1 [Ulcer Assessment] #1 R [place] Cluster -Current Size (cm) - Length 7.7 -Current Size (cm) - Width 7 -Current Size (cm) - Depth 0.1 -Total Square Cm 53.9 -Photo Taken No -Exudate Amt Small (1-33%) -Exudate Type Serosanguineous -Wound Margin Distinct, Outline Attached -Granulation Amt Large (67-100%) -Granulation Quality Pale [place] -Necrosis Amt Small (1-33%) -Necrotic Tissue Type Adherent Slough -Structure Exposed N/A -Texture (Ro-wound Skin Appearance) Scarring -Moisture (Ro-wound Skin Appearance No Abnormality ) -Color (Ro-wound Skin Appearance) Hemosiderin Staining -Ulcer Cleansing Rinsed/ Irrigated with Saline -Foul Odor after Cleansing No -Anesthetic Used 4% Lidocaine Solution [Edema Assessment] -Right Calf (cm) 32.6 -Right Ankle (cm) 21.7 WC - Nurse 2 - General Ulcer CM Notes Start: 06/17/17 09:55 Freq: Status: Active Protocol: Activity Type Activity Date Activity User E-Sign Co-Sign Detail Recorded Client Recorded Date Recorded By Document 06/17/17 10:05 GEOFF [id number] 06/17/17 10:07 GEOFF 06/17/17 10:05 Wound Center Nurse 2 [Procedure/Treatment] #1 R [place] Cluster -Time 10:06 -Correct Patient Yes -Correct Side, Site, Position Yes -Correct Procedure Yes -Procedure Performed Yes -Type of Procedure Debridement -Clinical Debridement Subcutaneous -Post Debridement Size (cm) - Length 7.8 -Post Debridement Size (cm) - Width 7 -Post Debridement Size (cm) - Depth 0.1 -Total Square Cm 54.6 -Wound/Ulcer Outcome Not Healed -Ulcer Cleansing Rinsed/ Irrigated with Saline -Foul Odor after Cleansing No -Bioengineered Tissue Yes -Type of bioengineered Tissue EPIFIX -Expiration Date 03/13/22 -Product Lot Number [id number] -Percent Used 100 -Saline Lot Number [id number] -Bleeding Controlled with Pressure -Treatment Response Procedure Tolerated Well [See Physician Procedure note for Specifics] Pain Scale: 0-10 Numeric [Pain] -Is Patient Pain Free? Yes Musculoskeletal: No Tenderness to Palpation of Joints or Extremities, Muscle Wasting, Tenderness - With wound manipulation, - - No crepitus Neurological: Sensory exam intact to light touch and pain Psych/Mental Status: Normal Affect, Appropriate Debridement Note Post-Debridement Measurements/Treatment WC - Nurse 2 - General Ulcer CM Notes Start: 06/17/17 09:55 Freq: Status: Active Protocol: Activity Type Activity Date Activity User E-Sign Co-Sign Detail Recorded Client Recorded Date Recorded By Document 06/17/17 10:05 GEOFF [id number] 06/17/17 10:07 GEOFF 06/17/17 10:05 Wound Center Nurse 2 #1 R [place] Cluster -Time 10:06 -Correct Patient Yes -Correct Side, Site, Position Yes -Correct Procedure Yes -Procedure Performed Yes -Type of Procedure Debridement -Clinical Debridement Subcutaneous -Post Debridement Size (cm) - Length 7.8 -Post Debridement Size (cm) - Width 7 -Post Debridement Size (cm) - Depth 0.1 -Total Square Cm 54.6 -Wound/Ulcer Outcome Not Healed -Ulcer Cleansing Rinsed/ Irrigated with Saline -Foul Odor after Cleansing No -Bioengineered Tissue Yes -Type of bioengineered Tissue EPIFIX -Expiration Date 03/13/22 -Product Lot Number [id number] -Percent Used 100 -Saline Lot Number [id number] -Bleeding Controlled with Pressure -Treatment Response Procedure Tolerated Well Pain Scale: 0-10 Numeric Is Patient Pain Free? 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 leg edema. venous insufficiency. ruled out peripheral vascular disease. diabetes with neurapathy. malnutrition suspected Plan: I reviewed and discussed the case with this patient as well as his son. Subcutaneous excisional debridement was performed as noted in the clinical panel. Verbal consent was obtained for application of epi fix. This was applied according to standard protocol and was secured in place with Steri-Strips and wound veil. He tolerated this well. I reviewed the basics of wound healing and his treatment plan. I recommend obtaining the following diagnostic data to better understand his medical condition: CBC, CMP, hemoglobin A1C. His venous Doppler with reflex evaluation and an incompetent right lower extremity greater saphenous vein was noted. No acute blood clots were seen. Provided a referral to pain specialist, Dr. Cifuentes to see if intervention is possible to aid in faster wound healing and future prevention. His noninvasive arterial vascular studies were also reviewed and he had biphasic waveforms from the ankle-brachial index. His segmental pressures also did not suggest calcification. I recommend compression consisting of Tubigrip. To elevate legs at rest and to avoid idle sitting or standing. Additional antibiotics are not recommended at this time and there are lack of clinical signs of infection. A tissue culture was obtained for evaluation for MRSA, aerobic and anaerobic. No bacterial growth were identified. I recommend nutritional supplementation and a prescription for Pedro was provided to optimize healing. To continue up to 2 daily. He understands improved glycemic control is also necessary for improved wound healing. To return to clinic in 1 week or call sooner if he has any questions or concerns.
[2017-06-24 10:23] VITALS: BP 145/85; PULSE 88; RESP 16; TEMP 36.2
--- NOTE | 2017-06-24 17:13 | PN.PCM_ITS ---
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 Current Visit: Yes Code(s): L97.912 - Non-pressure chronic ulcer of unspecified part of right lower leg with fat layer exposed (2) Venous insufficiency Status: Chronic Current Visit: Yes Code(s): I87.2 - Venous insufficiency ( chronic) (peripheral) (3) Leg edema, right Status: Chronic Current Visit: Yes Code(s): R60.0 - Localized edema (4) Peripheral vascular disease Status: Ruled-out Current Visit: Yes Code(s): I73.9 - Peripheral vascular disease, unspecified (5) Type 2 diabetes mellitus with diabetic polyneuropathy Status: Chronic Current Visit: Yes Code(s): E11.42 - Type 2 diabetes mellitus with diabetic polyneuropathy (6) Malnutrition Status: Chronic Current Visit: Yes Code(s): E46 - Unspecified protein- calorie malnutrition Type of Wound Date of Service: 06/24/17 Chief Complaint: Right leg ulcer History of Wound: This 77-year-old male with multiple comorbidities was seen today in clinic with his son for right leg wound. He obtained his studies is recommended. He denies fever, chill, nausea, vomiting. His wound is painful during the debridement process. He had an epi fix advanced wound care product applied last week. He has upcoming consultation visit scheduled with Dr. Cifuentes for venous evaluation. Progress of Wound: Improving - Physical Exam Vital Signs Temp Pulse Resp BP 97.1 F L 88 16 145/85 H 06/24/17 10:23 06/24/17 10:23 06/24/17 10:23 06/24/17 10:23 General: Alert, Oriented x3, Cooperative Extremities: No cyanosis, Capillary Refill Less than 3 Seconds, No Calf Tenderness - Negative Ricki and Urena leg, Diminished Peripheral Pulses, Edema - Varicosities leg Skin: Ulcer/ Wound - No purulence, erythema, streaking, no odor. Improved granulation tissue noted. The skin is atrophic and with lack of hair Wound Measurements and Assessment WC - Nurse 1 - General Ulcer Measurement Start: 06/17/17 09:55 Freq: Status: Active Protocol: Activity Type Activity Date Activity User E-Sign Co-Sign Detail Recorded Client Recorded Date Recorded By Document 06/24/17 10:23 GEOFF [id number] 06/24/17 10:31 06/24/17 10:23 Wound Center Nurse 1 [Ulcer Assessment] #1 R [place] Cluster -Combined with other wound No -Current Size (cm) - Length 2.4 -Current Size (cm) - Width 6.6 -Current Size (cm) - Depth 0.1 -Total Square Cm 15.84 -Photo Taken Yes -Epithelialization Large 67-100% -Tunneling No -Undermining/Tunneling No -Circular Undermining No -Exudate Amt None Present (0 %) -Wound Margin Flat & Intact -Granulation Amt None Present (0 %) -Slough/Fibrin Yes -Necrosis Amt Large (67-100%) -Necrotic Tissue Type Adherent Slough -Structure Exposed N/A -Texture (Ro-wound Skin Appearance) Assessed Localized Edema -Moisture (Ro-wound Skin Appearance Assessed ) Dry/Scaly -Color (Ro-wound Skin Appearance) Assessed -Temperature (Ro-wound Skin No Abnormality Appearance) (Pt Warm) -Tenderness on Palpation (Ro-wound No Skin Appearance) -Ulcer Cleansing Rinsed/ Irrigated with Saline -Foul Odor after Cleansing No -Anesthetic Used 4% Lidocaine Solution [Edema Assessment] -Lower Limb Edema Present Yes -Right Calf (cm) 32.0 -Right Ankle (cm) 21.7 WC - Nurse 2 - General Ulcer CM Notes Start: 06/17/17 09:55 Freq: Status: Active Protocol: Activity Type Activity Date Activity User E-Sign Co-Sign Detail Recorded Client Recorded Date Recorded By Document 06/24/17 10:40 [id number] 06/24/17 10:44 06/24/17 10:40 Wound Center Nurse 2 [Procedure/Treatment] #1 R [place] Cluster -Time 10:43 -Correct Patient Yes -Correct Side, Site, Position Yes -Correct Procedure Yes -Procedure Performed Yes -Type of Procedure Debridement -Clinical Debridement Subcutaneous -Post Debridement Size (cm) - Length 2.5 -Post Debridement Size (cm) - Width 6.6 -Post Debridement Size (cm) - Depth 0.1 -Total Square Cm 16.50 -Wound/Ulcer Outcome Not Healed -Ulcer Cleansing Rinsed/ Irrigated with Saline -Foul Odor after Cleansing No -Bioengineered Tissue Yes -Type of bioengineered Tissue EPIFIX -Expiration Date 04/13/22 -Product Lot Number [id number] -Percent Used 100 -Saline Lot Number [id number] -Bleeding Controlled with Pressure -Treatment Response Procedure Tolerated Well [See Physician Procedure note for Specifics] Pain Scale: 0-10 Numeric [Pain] -Is Patient Pain Free? Yes Musculoskeletal: No Tenderness to Palpation of Joints or Extremities, Tenderness - Wound manipulation and debridement, - - Compartment soft Neurological: Sensory exam intact to light touch and pain Psych/Mental Status: Normal Affect, Appropriate Debridement Note Post-Debridement Measurements/Treatment WC - Nurse 2 - General Ulcer CM Notes Start: 06/17/17 09:55 Freq: Status: Active Protocol: Activity Type Activity Date Activity User E-Sign Co-Sign Detail Recorded Client Recorded Date Recorded By Document 06/17/17 10:05 [id number] 06/17/17 10:07 Document 06/24/17 10:40 [id number] 06/24/17 10:44 06/17/17 06/24/17 10:05 10:40 Wound Center Nurse 2 #1 R [place] Cluster -Time 10:06 10:43 -Correct Patient Yes Yes -Correct Side, Site, Position Yes Yes -Correct Procedure Yes Yes -Procedure Performed Yes Yes -Type of Procedure Debridement Debridement -Clinical Debridement Subcutaneous Subcutaneous -Post Debridement Size (cm) - Length 7.8 2.5 -Post Debridement Size (cm) - Width 7 6.6 -Post Debridement Size (cm) - Depth 0.1 0.1 -Total Square Cm 54.6 16.50 -Wound/Ulcer Outcome Not Healed Not Healed -Ulcer Cleansing Rinsed/ Rinsed/ Irrigated with Irrigated with Saline Saline -Foul Odor after Cleansing No No -Bioengineered Tissue Yes Yes -Type of bioengineered Tissue EPIFIX EPIFIX -Expiration Date 03/13/22 04/13/22 -Product Lot Number [id number] -Percent Used 100 100 -Saline Lot Number [id number] -Bleeding Controlled with Pressure Pressure -Treatment Response Procedure Procedure Tolerated Well Tolerated Well Pain Scale: 0-10 Numeric Is Patient Pain Free? Yes Yes Wound debrided: leg Laterality: Right Wound Grade/Stage: grade 1 Type of Debridement: Excisional debridement Anesthesia Used: 4% Lidocaine Solution Depth: in the subcutaneous layer Percentage of wound debrided: 100 Instrument Used: #15 blade Tissue Removed: fibrous, devitalized subcutaneous, biofilm, slough Severity: Fat Layer Exposed Amount of bleeding with debridement: Mild Bleeding Controlled with: Pressure Patient tolerated procedure well Assessment/Plan Active Problems Ulcer of right lower extremity with fat layer exposed (Chronic) Venous insufficiency (Chronic) Leg edema, right (Chronic) Type 2 diabetes mellitus with diabetic polyneuropathy (Chronic) Malnutrition (Chronic) Assessment: right leg ulcer with fat layer exposed. leg edema. venous insufficiency. ruled out peripheral vascular disease. diabetes with neurapathy. malnutrition suspected Plan: I reviewed and discussed the case with this patient as well as his son. Subcutaneous excisional debridement was performed as noted in the clinical panel. Verbal consent was obtained for application of epi fix. This was applied according to standard protocol and was secured in place with Steri- Strips and wound veil. He tolerated this well. I reviewed the basics of wound healing and his treatment plan. I recommend obtaining the following diagnostic data to better understand his medical condition: CBC, CMP, hemoglobin A1C. His venous Doppler with reflex evaluation and an incompetent right lower extremity greater saphenous vein was noted. No acute blood clots were seen. Provided a referral to pain specialist, Dr. Cifuentes to see if intervention is possible to aid in faster wound healing and future prevention. His noninvasive arterial vascular studies were also reviewed and he had biphasic waveforms from the ankle -brachial index. His segmental pressures also did not suggest calcification. I recommend compression consisting of Tubigrip. To elevate legs at rest and to avoid idle sitting or standing. Additional antibiotics are not recommended at this time and there are lack of clinical signs of infection. A tissue culture was obtained for evaluation for MRSA, aerobic and anaerobic. No bacterial growth were identified. I recommend nutritional supplementation and a prescription for Pedro was provided to optimize healing. To continue up to 2 daily. He understands improved glycemic control is also necessary for improved wound healing. To return to clinic in 1 week or call sooner if he has any questions or concerns.
[2017-07-01 10:55] VITALS: BP 123/74; PULSE 89; RESP 16; TEMP 36.4
--- NOTE | 2017-07-01 13:03 | PCM.WC.PN ---
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 Current Visit: Yes Code(s): L97.912 - Non-pressure chronic ulcer of unspecified part of right lower leg with fat layer exposed (2) Venous insufficiency Status: Chronic Current Visit: Yes Code(s): I87.2 - Venous insufficiency (chronic) (peripheral) (3) Leg edema, right Status: Chronic Current Visit: Yes Code(s): R60.0 - Localized edema (4) Peripheral vascular disease Status: Ruled-out Current Visit: Yes Code(s): I73.9 - Peripheral vascular disease, unspecified (5) Type 2 diabetes mellitus with diabetic polyneuropathy Status: Chronic Current Visit: Yes Code(s): E11.42 - Type 2 diabetes mellitus with diabetic polyneuropathy (6) Malnutrition Status: Chronic Current Visit: Yes Code(s): E46 - Unspecified protein-calorie malnutrition (7) Delayed wound healing Status: Chronic Current Visit: Yes Code(s): T14.8XXD - Other injury of unspecified body region, subsequent encounter Type of Wound Date of Service: 07/01/17 Chief Complaint: Right leg ulcer History of Wound: This 77-year-old male with multiple comorbidities was seen today in clinic with his son for right leg wound. He obtained his studies as recommended. He denies fever, chill, nausea, vomiting. He had an epi fix advanced wound care product applied last week. He has upcoming consultation visit scheduled with Dr. Cifuentes for venous evaluation next Thursday. He takes nutritional supplementation as advised. He was also seen by Dr. Quintero today for his right arm ulcer. Progress of Wound: stAble - Physical Exam Vital Signs Temp Pulse Resp BP 97.5 F L 89 16 123/74 H 07/01/17 10:55 07/01/17 10:55 07/01/17 10:55 07/01/17 10:55 General: Alert, Oriented x3, Cooperative Extremities: No cyanosis, Capillary Refill Less than 3 Seconds, No Calf Tenderness - Negative Ricki and Urena right, Diminished Peripheral Pulses, Edema - Right lower extremity Skin: Ulcer/ Wound - No purulence, no erythema, no streaking, no gross infection. There is improved granulation tissue to the leg ulcer site and continued fibrous tissue which is decreasing. His peripheral skin is atrophic and hyperpigmented. There previous evidence of excoriations upon removal of the small scabs there is full epithelialization noted. No new ulcers noted. Wound Measurements and Assessment WC - Nurse 1 - General Ulcer Measurement Start: 06/17/17 09:55 Freq: Status: Active Protocol: Activity Type Activity Date Activity User E-Sign Co-Sign Detail Recorded Client Recorded Date Recorded By Document 07/01/17 10:55 [facility] [id number] 07/01/17 11:05 [facility] 07/01/17 10:55 Wound Center Nurse 1 [Ulcer Assessment] #2- RFA -Combined with other wound No -Current Size (cm) - Length 1.9 -Current Size (cm) - Width 1.7 -Current Size (cm) - Depth 0.2 -Total Square Cm 3.23 -Date of Last Picture (Recall this 07/01/17 field) -Photo Taken Yes -Epithelialization None Present -Tunneling No -Undermining/Tunneling No -Exudate Amt Small (1-33%) -Exudate Type Serosanguineous -Wound Margin Distinct, Outline Attached -Granulation Amt None Present (0 %) -Slough/Fibrin Yes -Necrosis Amt Large (67-100%) -Necrotic Tissue Type Eschar -Structure Exposed N/A -Texture (Ro-wound Skin Appearance) Scarring Rash -Moisture (Ro-wound Skin Appearance Assessed ) -Color (Ro-wound Skin Appearance) Erythema -Temperature (Or-wound Skin No Abnormality Appearance) (Pt Warm) -Tenderness on Palpation (Ro-wound Yes Skin Appearance) -Ulcer Cleansing Rinsed/ Irrigated with Saline -Foul Odor after Cleansing No -Anesthetic Used 5% Lidocaine Gel #1 R [place] Cluster -Combined with other wound No -Current Size (cm) - Length 7.2 -Current Size (cm) - Width 6.7 -Current Size (cm) - Depth 0.1 -Total Square Cm 48.24 -Photo Taken No -Tunneling No -Undermining/Tunneling No -Exudate Amt Small (1-33%) -Exudate Type Serosanguineous -Wound Margin Distinct, Outline Attached -Granulation Amt None Present (0 %) -Slough/Fibrin Yes -Necrosis Amt Large (67-100%) -Necrotic Tissue Type Adherent Slough -Structure Exposed None/Limited to Skin Breakdown -Texture (Ro-wound Skin Appearance) Scarring Rash -Moisture (Ro-wound Skin Appearance Dry/Scaly ) -Color (Ro-wound Skin Appearance) No Abnormality Assessed -Temperature (Ro-wound Skin No Abnormality Appearance) (Pt Warm) -Tenderness on Palpation (Ro-wound No Skin Appearance) -Ulcer Cleansing Wound Cleanser -Foul Odor after Cleansing No -Anesthetic Used 4% Lidocaine Solution [Edema Assessment] -Lower Limb Edema Present Yes -Right Calf (cm) 21.5 -Right Ankle (cm) 34 WC - Nurse 2 - General Ulcer CM Notes Start: 06/17/17 09:55 Freq: Status: Active Protocol: Activity Type Activity Date Activity User E-Sign Co-Sign Detail Recorded Client Recorded Date Recorded By Document 07/01/17 11:34 DV [id number] 07/01/17 11:37 DV Document 07/01/17 12:00 [id number] 07/01/17 12:02 07/01/17 07/01/17 11:34 12:00 Wound Center Nurse 2 [Procedure/Treatment] #2- RFA -Time 11:35 -Correct Patient Yes -Correct Side, Site, Position Yes -Correct Procedure Yes -Procedure Performed Yes -Type of Procedure Debridement -Clinical Debridement Subcutaneous -Post Debridement Size (cm) - Length 2.1 -Post Debridement Size (cm) - Width 1.7 -Post Debridement Size (cm) - Depth 0.1 -Total Square Cm 3.57 -Wound/Ulcer Outcome Not Healed -Ulcer Cleansing Rinsed/ Irrigated with Saline -Foul Odor after Cleansing No -Bioengineered Tissue No -Bleeding Controlled with Pressure -Other siver nitrate -Treatment Response Procedure Tolerated Well #1 R [place] Cluster -Time 12:01 -Correct Patient Yes -Correct Side, Site, Position Yes -Correct Procedure Yes -Procedure Performed Yes -Type of Procedure Debridement -Clinical Debridement Subcutaneous -Post Debridement Size (cm) - Length 7.3 -Post Debridement Size (cm) - Width 6.8 -Post Debridement Size (cm) - Depth 0.1 -Total Square Cm 49.64 -Wound/Ulcer Outcome Not Healed -Ulcer Cleansing Rinsed/ Irrigated with Saline -Foul Odor after Cleansing No -Bioengineered Tissue Yes -Type of bioengineered Tissue EPIFIX -Expiration Date 04/13/22 -Product Lot Number [id number] -Percent Used 100 -Saline Lot Number [id number] -Bleeding Controlled with Pressure -Treatment Response Procedure Tolerated Well [See Physician Procedure note for Specifics] Pain Scale: 0-10 Numeric [Pain] -Is Patient Pain Free? Yes Yes Musculoskeletal: No Tenderness to Palpation of Joints or Extremities, Muscle Wasting, Tenderness - Wound manipulation Neurological: Sensory exam intact to light touch and pain, - Psych/Mental Status: Normal Affect, Appropriate Debridement Note Post-Debridement Measurements/Treatment WC - Nurse 2 - General Ulcer CM Notes Start: 06/17/17 09:55 Freq: Status: Active Protocol: Activity Type Activity Date Activity User E-Sign Co-Sign Detail Recorded Client Recorded Date Recorded By Document 06/17/17 10:05 [id number] 06/17/17 10:07 Document 06/24/17 10:40 [id number] 06/24/17 10:44 Document 07/01/17 11:34 [id number] 07/01/17 11:37 DV Document 07/01/17 12:00 [id number] 07/01/17 12:02 06/17/17 06/24/17 07/01/17 10:05 10:40 11:34 Wound Center Nurse 2 #2- RFA -Time 11:35 -Correct Patient Yes -Correct Side, Site, Position Yes -Correct Procedure Yes -Procedure Performed Yes -Type of Procedure Debridement -Clinical Debridement Subcutaneous -Post Debridement Size (cm) - Length 2.1 -Post Debridement Size (cm) - Width 1.7 -Post Debridement Size (cm) - Depth 0.1 -Total Square Cm 3.57 -Wound/Ulcer Outcome Not Healed -Ulcer Cleansing Rinsed/ Irrigated with Saline -Foul Odor after Cleansing No -Bioengineered Tissue No -Bleeding Controlled with Pressure -Other siver nitrate -Treatment Response Procedure Tolerated Well #1 R [place] Cluster -Time 10:06 10:43 -Correct Patient Yes Yes -Correct Side, Site, Position Yes Yes -Correct Procedure Yes Yes -Procedure Performed Yes Yes -Type of Procedure Debridement Debridement -Clinical Debridement Subcutaneous Subcutaneous -Post Debridement Size (cm) - Length 7.8 2.5 -Post Debridement Size (cm) - Width 7 6.6 -Post Debridement Size (cm) - Depth 0.1 0.1 -Total Square Cm 54.6 16.50 -Wound/Ulcer Outcome Not Healed Not Healed -Ulcer Cleansing Rinsed/ Rinsed/ Irrigated with Irrigated with Saline Saline -Foul Odor after Cleansing No No -Bioengineered Tissue Yes Yes -Type of bioengineered Tissue EPIFIX EPIFIX -Expiration Date 03/13/22 04/13/22 -Product Lot Number [id number] -Percent Used 100 100 -Saline Lot Number [id number] -Bleeding Controlled with Pressure Pressure -Treatment Response Procedure Procedure Tolerated Well Tolerated Well Pain Scale: 0-10 Numeric Is Patient Pain Free? Yes Yes Yes 07/01/17 12:00 Wound Center Nurse 2 #2- RFA -Time -Correct Patient -Correct Side, Site, Position -Correct Procedure -Procedure Performed -Type of Procedure -Clinical Debridement -Post Debridement Size (cm) - Length -Post Debridement Size (cm) - Width -Post Debridement Size (cm) - Depth -Total Square Cm -Wound/Ulcer Outcome -Ulcer Cleansing -Foul Odor after Cleansing -Bioengineered Tissue -Bleeding Controlled with -Other -Treatment Response #1 R [place] Cluster -Time 12:01 -Correct Patient Yes -Correct Side, Site, Position Yes -Correct Procedure Yes -Procedure Performed Yes -Type of Procedure Debridement -Clinical Debridement Subcutaneous -Post Debridement Size (cm) - Length 7.3 -Post Debridement Size (cm) - Width 6.8 -Post Debridement Size (cm) - Depth 0.1 -Total Square Cm 49.64 -Wound/Ulcer Outcome Not Healed -Ulcer Cleansing Rinsed/ Irrigated with Saline -Foul Odor after Cleansing No -Bioengineered Tissue Yes -Type of bioengineered Tissue EPIFIX -Expiration Date 04/13/22 -Product Lot Number [id number] -Percent Used 100 -Saline Lot Number [id number] -Bleeding Controlled with Pressure -Treatment Response Procedure Tolerated Well Pain Scale: 0-10 Numeric Is Patient Pain Free? Yes Wound debrided: anterior leg cluster Laterality: Right Wound Grade/Stage: grade 1 Type of Debridement: Excisional debridement Anesthesia Used: 4% Lidocaine Solution Depth: in the subcutaneous layer Percentage of wound debrided: 30 Instrument Used: #15 blade Tissue Removed: fibrous, devitalized subcutaneous, biofilm, slough Severity: Fat Layer Exposed Amount of bleeding with debridement: Mild Bleeding Controlled with: Pressure Patient tolerated procedure well Assessment/Plan Active Problems Ulcer of right lower extremity with fat layer exposed (Chronic) Venous insufficiency (Chronic) Leg edema, right (Chronic) Type 2 diabetes mellitus with diabetic polyneuropathy (Chronic) Malnutrition (Chronic) Delayed wound healing (Chronic) Assessment: right leg ulcer with fat layer exposed. leg edema. venous insufficiency. ruled out peripheral vascular disease. diabetes with neurapathy. malnutrition suspected Plan: I reviewed and discussed the case with this patient as well as his son. Subcutaneous excisional debridement was performed as noted in the clinical panel. Verbal consent was obtained for application of epi fix. This was applied according to standard protocol and was secured in place with Steri-Strips and wound veil. He tolerated this well. I recommend obtaining the following diagnostic data to better understand his medical condition: CBC, CMP, hemoglobin A1C. I reviewed his diagnostic data he obtained at [facility] from earlier this week. He had a urinalysis performed that was negative for leukocyte esterase, he also had blood and sputum cultures taken and results are pending. He was negative for influenza tests. I do not see any of the ordered lab results and this information will be requested from [facility]. His venous Doppler with reflex evaluation and an incompetent right lower extremity greater saphenous vein was noted. No acute blood clots were seen. Provided a referral to vascular specialist has been arranged, Dr. Cifuentes to see if intervention is possible to aid in faster wound healing and future prevention. His noninvasive arterial vascular studies were also reviewed and he had biphasic waveforms from the ankle-brachial index. His segmental pressures also did not suggest calcification. I recommend compression consisting of Tubigrip. To elevate legs at rest and to avoid idle sitting or standing. Additional antibiotics are not recommended at this time and there are lack of clinical signs of infection. A tissue culture was obtained for evaluation for MRSA, aerobic and anaerobic. No bacterial growth were identified. I recommend nutritional supplementation and a prescription for Pedro was provided to optimize healing. To continue up to 2 daily. He understands improved glycemic control is also necessary for improved wound healing. He also saw Dr. Quintero for his right arm wound and intervention is greatly appreciated. To return to clinic in 1 week or call sooner if he has any questions or concerns.
--- NOTE | 2017-07-01 13:09 | PN.PCM_ITS ---
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 Current Visit: Yes Code(s): L97.912 - Non-pressure chronic ulcer of unspecified part of right lower leg with fat layer exposed (2) Venous insufficiency Status: Chronic Current Visit: Yes Code(s): I87.2 - Venous insufficiency ( chronic) (peripheral) (3) Leg edema, right Status: Chronic Current Visit: Yes Code(s): R60.0 - Localized edema (4) Peripheral vascular disease Status: Ruled-out Current Visit: Yes Code(s): I73.9 - Peripheral vascular disease, unspecified (5) Type 2 diabetes mellitus with diabetic polyneuropathy Status: Chronic Current Visit: Yes Code(s): E11.42 - Type 2 diabetes mellitus with diabetic polyneuropathy (6) Malnutrition Status: Chronic Current Visit: Yes Code(s): E46 - Unspecified protein- calorie malnutrition (7) Delayed wound healing Status: Chronic Current Visit: Yes Code(s): T14.8XXD - Other injury of unspecified body region, subsequent encounter Type of Wound Date of Service: 07/01/17 Chief Complaint: Right leg ulcer History of Wound: This 77-year-old male with multiple comorbidities was seen today in clinic with his son for right leg wound. He obtained his studies as recommended. He denies fever, chill, nausea, vomiting. He had an epi fix advanced wound care product applied last week. He has upcoming consultation visit scheduled with Dr. Cifuentes for venous evaluation next Thursday. He takes nutritional supplementation as advised. He was also seen by Dr. Quintero today for his right arm ulcer. Progress of Wound: stAble - Physical Exam Vital Signs Temp Pulse Resp BP 97.5 F L 89 16 123/74 H 07/01/17 10:55 07/01/17 10:55 07/01/17 10:55 07/01/17 10:55 General: Alert, Oriented x3, Cooperative Extremities: No cyanosis, Capillary Refill Less than 3 Seconds, No Calf Tenderness - Negative Ricki and Urena right, Diminished Peripheral Pulses, Edema - Right lower extremity Skin: Ulcer/ Wound - No purulence, no erythema, no streaking, no gross infection. There is improved granulation tissue to the leg ulcer site and continued fibrous tissue which is decreasing. His peripheral skin is atrophic and hyperpigmented. There previous evidence of excoriations upon removal of the small scabs there is full epithelialization noted. No new ulcers noted. Wound Measurements and Assessment WC - Nurse 1 - General Ulcer Measurement Start: 06/17/17 09:55 Freq: Status: Active Protocol: Activity Type Activity Date Activity User E-Sign Co-Sign Detail Recorded Client Recorded Date Recorded By Document 07/01/17 10:[address] [facility] [id number] 07/01/17 11:[address] [facility] 07/01/17 10:55 Wound Center Nurse 1 [Ulcer Assessment] #2- RFA -Combined with other wound No -Current Size (cm) - Length 1.9 -Current Size (cm) - Width 1.7 -Current Size (cm) - Depth 0.2 -Total Square Cm 3.23 -Date of Last Picture (Recall this 07/01/17 field) -Photo Taken Yes -Epithelialization None Present -Tunneling No -Undermining/Tunneling No -Exudate Amt Small (1-33%) -Exudate Type Serosanguineous -Wound Margin Distinct, Outline Attached -Granulation Amt None Present (0 %) -Slough/Fibrin Yes -Necrosis Amt Large (67-100%) -Necrotic Tissue Type Eschar -Structure Exposed N/A -Texture (Ro-wound Skin Appearance) Scarring Rash -Moisture (Ro-wound Skin Appearance Assessed ) -Color (Ro-wound Skin Appearance) Erythema -Temperature (Ro-wound Skin No Abnormality Appearance) (Pt Warm) -Tenderness on Palpation (Ro-wound Yes Skin Appearance) -Ulcer Cleansing Rinsed/ Irrigated with Saline -Foul Odor after Cleansing No -Anesthetic Used 5% Lidocaine Gel #1 R [place] Cluster -Combined with other wound No -Current Size (cm) - Length 7.2 -Current Size (cm) - Width 6.7 -Current Size (cm) - Depth 0.1 -Total Square Cm 48.24 -Photo Taken No -Tunneling No -Undermining/Tunneling No -Exudate Amt Small (1-33%) -Exudate Type Serosanguineous -Wound Margin Distinct, Outline Attached -Granulation Amt None Present (0 %) -Slough/Fibrin Yes -Necrosis Amt Large (67-100%) -Necrotic Tissue Type Adherent Slough -Structure Exposed None/Limited to Skin Breakdown -Texture (Ro-wound Skin Appearance) Scarring Rash -Moisture (Ro-wound Skin Appearance Dry/Scaly ) -Color (Ro-wound Skin Appearance) No Abnormality Assessed -Temperature (Ro-wound Skin No Abnormality Appearance) (Pt Warm) -Tenderness on Palpation (Ro-wound No Skin Appearance) -Ulcer Cleansing Wound Cleanser -Foul Odor after Cleansing No -Anesthetic Used 4% Lidocaine Solution [Edema Assessment] -Lower Limb Edema Present Yes -Right Calf (cm) 21.5 -Right Ankle (cm) 34 WC - Nurse 2 - General Ulcer CM Notes Start: 06/17/17 09:55 Freq: Status: Active Protocol: Activity Type Activity Date Activity User E-Sign Co-Sign Detail Recorded Client Recorded Date Recorded By Document 07/01/17 11:34 DV [id number] 07/01/17 11:37 DV Document 07/01/17 12:00 [id number] 07/01/17 12:02 07/01/17 07/01/17 11:34 12:00 Wound Center Nurse 2 [Procedure/Treatment] #2- RFA -Time 11:35 -Correct Patient Yes -Correct Side, Site, Position Yes -Correct Procedure Yes -Procedure Performed Yes -Type of Procedure Debridement -Clinical Debridement Subcutaneous -Post Debridement Size (cm) - Length 2.1 -Post Debridement Size (cm) - Width 1.7 -Post Debridement Size (cm) - Depth 0.1 -Total Square Cm 3.57 -Wound/Ulcer Outcome Not Healed -Ulcer Cleansing Rinsed/ Irrigated with Saline -Foul Odor after Cleansing No -Bioengineered Tissue No -Bleeding Controlled with Pressure -Other siver nitrate -Treatment Response Procedure Tolerated Well #1 R [place] Cluster -Time 12:01 -Correct Patient Yes -Correct Side, Site, Position Yes -Correct Procedure Yes -Procedure Performed Yes -Type of Procedure Debridement -Clinical Debridement Subcutaneous -Post Debridement Size (cm) - Length 7.3 -Post Debridement Size (cm) - Width 6.8 -Post Debridement Size (cm) - Depth 0.1 -Total Square Cm 49.64 -Wound/Ulcer Outcome Not Healed -Ulcer Cleansing Rinsed/ Irrigated with Saline -Foul Odor after Cleansing No -Bioengineered Tissue Yes -Type of bioengineered Tissue EPIFIX -Expiration Date 04/13/22 -Product Lot Number [id number] -Percent Used 100 -Saline Lot Number [id number] -Bleeding Controlled with Pressure -Treatment Response Procedure Tolerated Well [See Physician Procedure note for Specifics] Pain Scale: 0-10 Numeric [Pain] -Is Patient Pain Free? Yes Yes Musculoskeletal: No Tenderness to Palpation of Joints or Extremities, Muscle Wasting, Tenderness - Wound manipulation Neurological: Sensory exam intact to light touch and pain, - Psych/Mental Status: Normal Affect, Appropriate Debridement Note Post-Debridement Measurements/Treatment WC - Nurse 2 - General Ulcer CM Notes Start: 06/17/17 09:55 Freq: Status: Active Protocol: Activity Type Activity Date Activity User E-Sign Co-Sign Detail Recorded Client Recorded Date Recorded By Document 06/17/17 10:05 [id number] 06/17/17 10:07 Document 06/24/17 10:40 [id number] 06/24/17 10:44 Document 07/01/17 11:34 DV [id number] 07/01/17 11:37 DV Document 07/01/17 12:00 [id number] 07/01/17 12:02 06/17/17 06/24/17 07/01/17 10:05 10:40 11:34 Wound Center Nurse 2 #2- RFA -Time 11:35 -Correct Patient Yes -Correct Side, Site, Position Yes -Correct Procedure Yes -Procedure Performed Yes -Type of Procedure Debridement -Clinical Debridement Subcutaneous -Post Debridement Size (cm) - Length 2.1 -Post Debridement Size (cm) - Width 1.7 -Post Debridement Size (cm) - Depth 0.1 -Total Square Cm 3.57 -Wound/Ulcer Outcome Not Healed -Ulcer Cleansing Rinsed/ Irrigated with Saline -Foul Odor after Cleansing No -Bioengineered Tissue No -Bleeding Controlled with Pressure -Other siver nitrate -Treatment Response Procedure Tolerated Well #1 R [place] Cluster -Time 10:06 10:43 -Correct Patient Yes Yes -Correct Side, Site, Position Yes Yes -Correct Procedure Yes Yes -Procedure Performed Yes Yes -Type of Procedure Debridement Debridement -Clinical Debridement Subcutaneous Subcutaneous -Post Debridement Size (cm) - Length 7.8 2.5 -Post Debridement Size (cm) - Width 7 6.6 -Post Debridement Size (cm) - Depth 0.1 0.1 -Total Square Cm 54.6 16.50 -Wound/Ulcer Outcome Not Healed Not Healed -Ulcer Cleansing Rinsed/ Rinsed/ Irrigated with Irrigated with Saline Saline -Foul Odor after Cleansing No No -Bioengineered Tissue Yes Yes -Type of bioengineered Tissue EPIFIX EPIFIX -Expiration Date 03/13/22 04/13/22 -Product Lot Number [id number] -Percent Used 100 100 -Saline Lot Number [id number] -Bleeding Controlled with Pressure Pressure -Treatment Response Procedure Procedure Tolerated Well Tolerated Well Pain Scale: 0-10 Numeric Is Patient Pain Free? Yes Yes Yes 07/01/17 12:00 Wound Center Nurse 2 #2- RFA -Time -Correct Patient -Correct Side, Site, Position -Correct Procedure -Procedure Performed -Type of Procedure -Clinical Debridement -Post Debridement Size (cm) - Length -Post Debridement Size (cm) - Width -Post Debridement Size (cm) - Depth -Total Square Cm -Wound/Ulcer Outcome -Ulcer Cleansing -Foul Odor after Cleansing -Bioengineered Tissue -Bleeding Controlled with -Other -Treatment Response #1 R [place] Cluster -Time 12:01 -Correct Patient Yes -Correct Side, Site, Position Yes -Correct Procedure Yes -Procedure Performed Yes -Type of Procedure Debridement -Clinical Debridement Subcutaneous -Post Debridement Size (cm) - Length 7.3 -Post Debridement Size (cm) - Width 6.8 -Post Debridement Size (cm) - Depth 0.1 -Total Square Cm 49.64 -Wound/Ulcer Outcome Not Healed -Ulcer Cleansing Rinsed/ Irrigated with Saline -Foul Odor after Cleansing No -Bioengineered Tissue Yes -Type of bioengineered Tissue EPIFIX -Expiration Date 04/13/22 -Product Lot Number [id number] -Percent Used 100 -Saline Lot Number [id number] -Bleeding Controlled with Pressure -Treatment Response Procedure Tolerated Well Pain Scale: 0-10 Numeric Is Patient Pain Free? Yes Wound debrided: anterior leg cluster Laterality: Right Wound Grade/Stage: grade 1 Type of Debridement: Excisional debridement Anesthesia Used: 4% Lidocaine Solution Depth: in the subcutaneous layer Percentage of wound debrided: 30 Instrument Used: #15 blade Tissue Removed: fibrous, devitalized subcutaneous, biofilm, slough Severity: Fat Layer Exposed Amount of bleeding with debridement: Mild Bleeding Controlled with: Pressure Patient tolerated procedure well Assessment/Plan Active Problems Ulcer of right lower extremity with fat layer exposed (Chronic) Venous insufficiency (Chronic) Leg edema, right (Chronic) Type 2 diabetes mellitus with diabetic polyneuropathy (Chronic) Malnutrition (Chronic) Delayed wound healing (Chronic) Assessment: right leg ulcer with fat layer exposed. leg edema. venous insufficiency. ruled out peripheral vascular disease. diabetes with neurapathy. malnutrition suspected Plan: I reviewed and discussed the case with this patient as well as his son. Subcutaneous excisional debridement was performed as noted in the clinical panel. Verbal consent was obtained for application of epi fix. This was applied according to standard protocol and was secured in place with Steri- Strips and wound veil. He tolerated this well. I recommend obtaining the following diagnostic data to better understand his medical condition: CBC, CMP, hemoglobin A1C. I reviewed his diagnostic data he obtained at [facility] from earlier this week. He had a urinalysis performed that was negative for leukocyte esterase, he also had blood and sputum cultures taken and results are pending. He was negative for influenza tests. I do not see any of the ordered lab results and this information will be requested from [facility]. His venous Doppler with reflex evaluation and an incompetent right lower extremity greater saphenous vein was noted. No acute blood clots were seen. Provided a referral to vascular specialist has been arranged, Dr. Cifuentes to see if intervention is possible to aid in faster wound healing and future prevention. His noninvasive arterial vascular studies were also reviewed and he had biphasic waveforms from the ankle-brachial index. His segmental pressures also did not suggest calcification. I recommend compression consisting of Tubigrip. To elevate legs at rest and to avoid idle sitting or standing. Additional antibiotics are not recommended at this time and there are lack of clinical signs of infection. A tissue culture was obtained for evaluation for MRSA, aerobic and anaerobic. No bacterial growth were identified. I recommend nutritional supplementation and a prescription for Pedro was provided to optimize healing. To continue up to 2 daily. He understands improved glycemic control is also necessary for improved wound healing. He also saw Dr. Quintero for his right arm wound and intervention is greatly appreciated. To return to clinic in 1 week or call sooner if he has any questions or concerns.
--- NOTE | 2017-07-01 18:56 | PCM.WC.HP ---
(1) Open wound of right upper extremity Status: Acute Current Visit: Yes Qualifiers: Encounter type: initial encounter Qualified Code(s): S41.101A - Unspecified open wound of right upper arm, initial encounter Code(s): S41.101A - Unspecified open wound of right upper arm, initial encounter (2) Type 2 diabetes mellitus with diabetic polyneuropathy Status: Chronic Current Visit: Yes Code(s): E11.42 - Type 2 diabetes mellitus with diabetic polyneuropathy History of Present Illness Date of Service: 07/01/17 Chief Complaint: Right upper extremity wound. History of Wound: Mr Montalvo is a 77yo who also currently sees Dr. Castro for lower extremity ulcers. I was asked to see him for a non healing right upper extremity wound. Initially noted just over a month ago while in the hospital. He is unclear about the exact precipitating event but noted a blister beside an IV line which was subsequently incised about a week later while in the shelter. Per patient, no significant drainage was noted after it was incised. He has been applying a dressing daily however, he is unsure of the name. This is not caused any significant change in the wound. He denies worsening or increasing pain at the wound site. He feels well and denies any other compliants at this time. 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) Venous insufficiency (Chronic) Leg edema, right (Chronic) Type 2 diabetes mellitus with diabetic polyneuropathy (Chronic) Malnutrition (Chronic) Delayed wound healing (Chronic) Allergies/Adverse Reactions: Allergies No Known Allergies Allergy (Verified 05/27/17 09:50) Home Medications: Ambulatory Orders Medication Instructions Recorded Cephalexin [Keflex] 500 mg PO 05/27/17 Doxazosin Mesylate [Cardura] 4 mg PO QHS 05/27/17 Enalapril Maleate 10 mg PO 05/27/17 Insulin Lispro [Humalog] 16 unit 05/27/17 Lasix 40 05/27/17 Metformin HCl [Metformin HCl ER] 500 mg PO 05/27/17 Methimazole 10 mg PO 05/27/17 Metoprolol Succinate 50 mg PO 05/27/17 Warfarin [Coumadin (PBKC)] 5 mg PO DAILY 05/27/17 Smoking Status: Former smoker Review of Systems Constitutional: Denies: Anorexia, Chills, Fever Eyes: Denies: Pain, Redness HEENT: Denies: Difficulty Hearing, Difficulty Swallowing Cardiovascular: Denies: Chest Pain, Light Headedness Respiratory: Denies: Cough, Hemoptysis Gastrointestinal: Denies: Abdominal Pain, Hematemesis, Vomiting Skin: Denies: Jaundice, Pruritis Neurological: Denies: Tremor - Physical Exam Vital Signs Temp Pulse Resp BP 97.5 F L 89 16 123/74 H 07/01/17 10:55 07/01/17 10:55 07/01/17 10:55 07/01/17 10:55 General: Alert, Oriented x3, Cooperative, No apparent distress HEENT: Atraumatic, Normocephalic Oral: Moist Mucosa Neck: Supple Lungs: Normal air movement Cardiovascular: Regular rate Abdomen: Non Tender Extremities: No cyanosis Skin: Ulcer/ Wound Wound Measurements and Assessment WC - Nurse 1 - General Ulcer Measurement Start: 06/17/17 09:55 Freq: Status: Active Protocol: Activity Type Activity Date Activity User E-Sign Co-Sign Detail Recorded Client Recorded Date Recorded By Document 07/01/17 10:55 [facility] [id number] 07/01/17 11:05 [facility] 07/01/17 10:55 Wound Center Nurse 1 [Ulcer Assessment] #2- RFA -Combined with other wound No -Current Size (cm) - Length 1.9 -Current Size (cm) - Width 1.7 -Current Size (cm) - Depth 0.2 -Total Square Cm 3.23 -Date of Last Picture (Recall this 07/01/17 field) -Photo Taken Yes -Epithelialization None Present -Tunneling No -Undermining/Tunneling No -Exudate Amt Small (1-33%) -Exudate Type Serosanguineous -Wound Margin Distinct, Outline Attached -Granulation Amt None Present (0 %) -Slough/Fibrin Yes -Necrosis Amt Large (67-100%) -Necrotic Tissue Type Eschar -Structure Exposed N/A -Texture (Ro-wound Skin Appearance) Scarring Rash -Moisture (Ro-wound Skin Appearance Assessed ) -Color (Ro-wound Skin Appearance) Erythema -Temperature (Ro-wound Skin No Abnormality Appearance) (Pt Warm) -Tenderness on Palpation (Ro-wound Yes Skin Appearance) -Ulcer Cleansing Rinsed/ Irrigated with Saline -Foul Odor after Cleansing No -Anesthetic Used 5% Lidocaine Gel #1 R [place] Cluster -Combined with other wound No -Current Size (cm) - Length 7.2 -Current Size (cm) - Width 6.7 -Current Size (cm) - Depth 0.1 -Total Square Cm 48.24 -Photo Taken No -Tunneling No -Undermining/Tunneling No -Exudate Amt Small (1-33%) -Exudate Type Serosanguineous -Wound Margin Distinct, Outline Attached -Granulation Amt None Present (0 %) -Slough/Fibrin Yes -Necrosis Amt Large (67-100%) -Necrotic Tissue Type Adherent Slough -Structure Exposed None/Limited to Skin Breakdown -Texture (Ro-wound Skin Appearance) Scarring Rash -Moisture (Ro-wound Skin Appearance Dry/Scaly ) -Color (Ro-wound Skin Appearance) No Abnormality Assessed -Temperature (Ro-wound Skin No Abnormality Appearance) (Pt Warm) -Tenderness on Palpation (Ro-wound No Skin Appearance) -Ulcer Cleansing Wound Cleanser -Foul Odor after Cleansing No -Anesthetic Used 4% Lidocaine Solution [Edema Assessment] -Lower Limb Edema Present Yes -Right Calf (cm) 21.5 -Right Ankle (cm) 34 WC - Nurse 2 - General Ulcer CM Notes Start: 06/17/17 09:55 Freq: Status: Active Protocol: Activity Type Activity Date Activity User E-Sign Co-Sign Detail Recorded Client Recorded Date Recorded By Document 07/01/17 11:34 DV [id number] 07/01/17 11:37 DV Document 07/01/17 12:00 [id number] 07/01/17 12:02 07/01/17 07/01/17 11:34 12:00 Wound Center Nurse 2 [Procedure/Treatment] #2- RFA -Time 11:35 -Correct Patient Yes -Correct Side, Site, Position Yes -Correct Procedure Yes -Procedure Performed Yes -Type of Procedure Debridement -Clinical Debridement Subcutaneous -Post Debridement Size (cm) - Length 2.1 -Post Debridement Size (cm) - Width 1.7 -Post Debridement Size (cm) - Depth 0.1 -Total Square Cm 3.57 -Wound/Ulcer Outcome Not Healed -Ulcer Cleansing Rinsed/ Irrigated with Saline -Foul Odor after Cleansing No -Bioengineered Tissue No -Bleeding Controlled with Pressure -Other siver nitrate -Treatment Response Procedure Tolerated Well #1 Adalberto [place]os Cluster -Time 12:01 -Correct Patient Yes -Correct Side, Site, Position Yes -Correct Procedure Yes -Procedure Performed Yes -Type of Procedure Debridement -Clinical Debridement Subcutaneous -Post Debridement Size (cm) - Length 7.3 -Post Debridement Size (cm) - Width 6.8 -Post Debridement Size (cm) - Depth 0.1 -Total Square Cm 49.64 -Wound/Ulcer Outcome Not Healed -Ulcer Cleansing Rinsed/ Irrigated with Saline -Foul Odor after Cleansing No -Bioengineered Tissue Yes -Type of bioengineered Tissue EPIFIX -Expiration Date 04/13/22 -Product Lot Number [id number] -Percent Used 100 -Saline Lot Number [id number] -Bleeding Controlled with Pressure -Treatment Response Procedure Tolerated Well [See Physician Procedure note for Specifics] Pain Scale: 0-10 Numeric [Pain] -Is Patient Pain Free? Yes Yes Musculoskeletal: No Muscle Wasting Neurological: Cranial nerves II-XII grossly intact Psych/Mental Status: Normal Affect Debridement Note Post-Debridement Measurements/Treatment WC - Nurse 2 - General Ulcer CM Notes Start: 06/17/17 09:55 Freq: Status: Active Protocol: Activity Type Activity Date Activity User E-Sign Co-Sign Detail Recorded Client Recorded Date Recorded By Document 06/17/17 10:05 [id number] 06/17/17 10:07 Document 06/24/17 10:40 [id number] 06/24/17 10:44 Document 07/01/17 11:34 [id number] 07/01/17 11:37 DV Document 07/01/17 12:00 [id number] 07/01/17 12:02 06/17/17 06/24/17 07/01/17 10:05 10:40 11:34 Wound Center Nurse 2 #2- RFA -Time 11:35 -Correct Patient Yes -Correct Side, Site, Position Yes -Correct Procedure Yes -Procedure Performed Yes -Type of Procedure Debridement -Clinical Debridement Subcutaneous -Post Debridement Size (cm) - Length 2.1 -Post Debridement Size (cm) - Width 1.7 -Post Debridement Size (cm) - Depth 0.1 -Total Square Cm 3.57 -Wound/Ulcer Outcome Not Healed -Ulcer Cleansing Rinsed/ Irrigated with Saline -Foul Odor after Cleansing No -Bioengineered Tissue No -Bleeding Controlled with Pressure -Other siver nitrate -Treatment Response Procedure Tolerated Well #1 Adalberto [place] Cluster -Time 10:06 10:43 -Correct Patient Yes Yes -Correct Side, Site, Position Yes Yes -Correct Procedure Yes Yes -Procedure Performed Yes Yes -Type of Procedure Debridement Debridement -Clinical Debridement Subcutaneous Subcutaneous -Post Debridement Size (cm) - Length 7.8 2.5 -Post Debridement Size (cm) - Width 7 6.6 -Post Debridement Size (cm) - Depth 0.1 0.1 -Total Square Cm 54.6 16.50 -Wound/Ulcer Outcome Not Healed Not Healed -Ulcer Cleansing Rinsed/ Rinsed/ Irrigated with Irrigated with Saline Saline -Foul Odor after Cleansing No No -Bioengineered Tissue Yes Yes -Type of bioengineered Tissue EPIFIX EPIFIX -Expiration Date 03/13/22 04/13/22 -Product Lot Number [id number] -Percent Used 100 100 -Saline Lot Number [id number] -Bleeding Controlled with Pressure Pressure -Treatment Response Procedure Procedure Tolerated Well Tolerated Well Pain Scale: 0-10 Numeric Is Patient Pain Free? Yes Yes Yes 07/01/17 12:00 Wound Center Nurse 2 #2- RFA -Time -Correct Patient -Correct Side, Site, Position -Correct Procedure -Procedure Performed -Type of Procedure -Clinical Debridement -Post Debridement Size (cm) - Length -Post Debridement Size (cm) - Width -Post Debridement Size (cm) - Depth -Total Square Cm -Wound/Ulcer Outcome -Ulcer Cleansing -Foul Odor after Cleansing -Bioengineered Tissue -Bleeding Controlled with -Other -Treatment Response #1 Adalberto Bust[place]os Cluster -Time 12:01 -Correct Patient Yes -Correct Side, Site, Position Yes -Correct Procedure Yes -Procedure Performed Yes -Type of Procedure Debridement -Clinical Debridement Subcutaneous -Post Debridement Size (cm) - Length 7.3 -Post Debridement Size (cm) - Width 6.8 -Post Debridement Size (cm) - Depth 0.1 -Total Square Cm 49.64 -Wound/Ulcer Outcome Not Healed -Ulcer Cleansing Rinsed/ Irrigated with Saline -Foul Odor after Cleansing No -Bioengineered Tissue Yes -Type of bioengineered Tissue EPIFIX -Expiration Date 04/13/22 -Product Lot Number [id number] -Percent Used 100 -Saline Lot Number [id number] -Bleeding Controlled with Pressure -Treatment Response Procedure Tolerated Well Pain Scale: 0-10 Numeric Is Patient Pain Free? 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 leg edema. venous insufficiency. ruled out peripheral vascular disease. diabetes with neurapathy. malnutrition suspected. Right Forearm Wound with Fat Layer Exposed ( Sees Dr. Quintero ) Plan: Mr. Montalvo was seen as documented above for his right forearm wound which initially started out as a blister which was subsequently incised. Since Incision. he has had poor wound healing. He has been applying a dressing given by his PCP without much improvement. Debridement done as documented above. Procedure was well tolerated. Cultures taken. Other blood work already done by Dr. Castro. Apply Fibrochol daily with morenita mejia. Other conservative wound care as discussed with Dr. Castro. Follow up in 1 week.
--- NOTE | 2017-07-01 18:59 | HP.PCM_ITS ---
(1) Open wound of right upper extremity Status: Acute Current Visit: Yes Qualifiers: Encounter type: initial encounter Qualified Code(s): S41.101A - Unspecified open wound of right upper arm, initial encounter Code(s): S41.101A - Unspecified open wound of right upper arm, initial encounter (2) Type 2 diabetes mellitus with diabetic polyneuropathy Status: Chronic Current Visit: Yes Code(s): E11.42 - Type 2 diabetes mellitus with diabetic polyneuropathy History of Present Illness Date of Service: 07/01/17 Chief Complaint: Right upper extremity wound. History of Wound: Mr Montalvo is a 77yo who also currently sees Dr. Castro for lower extremity ulcers. I was asked to see him for a non healing right upper extremity wound. Initially noted just over a month ago while in the hospital. He is unclear about the exact precipitating event but noted a blister beside an IV line which was subsequently incised about a week later while in the care home. Per patient, no significant drainage was noted after it was incised. He has been applying a dressing daily however, he is unsure of the name. This is not caused any significant change in the wound. He denies worsening or increasing pain at the wound site. He feels well and denies any other compliants at this time. 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) Venous insufficiency (Chronic) Leg edema, right (Chronic) Type 2 diabetes mellitus with diabetic polyneuropathy (Chronic) Malnutrition (Chronic) Delayed wound healing (Chronic) Allergies/Adverse Reactions: Allergies No Known Allergies Allergy (Verified 05/27/17 09:50) Home Medications: Ambulatory Orders Medication Instructions Recorded Cephalexin [Keflex] 500 mg PO 05/27/17 Doxazosin Mesylate [Cardura] 4 mg PO QHS 05/27/17 Enalapril Maleate 10 mg PO 05/27/17 Insulin Lispro [Humalog] 16 unit 05/27/17 Lasix 40 05/27/17 Metformin HCl [Metformin HCl ER] 500 mg PO 05/27/17 Methimazole 10 mg PO 05/27/17 Metoprolol Succinate 50 mg PO 05/27/17 Warfarin [Coumadin (PBKC)] 5 mg PO DAILY 05/27/17 Smoking Status: Former smoker Review of Systems Constitutional: Denies: Anorexia, Chills, Fever Eyes: Denies: Pain, Redness HEENT: Denies: Difficulty Hearing, Difficulty Swallowing Cardiovascular: Denies: Chest Pain, Light Headedness Respiratory: Denies: Cough, Hemoptysis Gastrointestinal: Denies: Abdominal Pain, Hematemesis, Vomiting Skin: Denies: Jaundice, Pruritis Neurological: Denies: Tremor - Physical Exam Vital Signs Temp Pulse Resp BP 97.5 F L 89 16 123/74 H 07/01/17 10:55 07/01/17 10:55 07/01/17 10:55 07/01/17 10:55 General: Alert, Oriented x3, Cooperative, No apparent distress HEENT: Atraumatic, Normocephalic Oral: Moist Mucosa Neck: Supple Lungs: Normal air movement Cardiovascular: Regular rate Abdomen: Non Tender Extremities: No cyanosis Skin: Ulcer/ Wound Wound Measurements and Assessment WC - Nurse 1 - General Ulcer Measurement Start: 06/17/17 09:55 Freq: Status: Active Protocol: Activity Type Activity Date Activity User E-Sign Co-Sign Detail Recorded Client Recorded Date Recorded By Document 07/01/17 10:[address] [facility] [id number] 07/01/17 11:[address] [facility] 07/01/17 10:55 Wound Center Nurse 1 [Ulcer Assessment] #2- RFA -Combined with other wound No -Current Size (cm) - Length 1.9 -Current Size (cm) - Width 1.7 -Current Size (cm) - Depth 0.2 -Total Square Cm 3.23 -Date of Last Picture (Recall this 07/01/17 field) -Photo Taken Yes -Epithelialization None Present -Tunneling No -Undermining/Tunneling No -Exudate Amt Small (1-33%) -Exudate Type Serosanguineous -Wound Margin Distinct, Outline Attached -Granulation Amt None Present (0 %) -Slough/Fibrin Yes -Necrosis Amt Large (67-100%) -Necrotic Tissue Type Eschar -Structure Exposed N/A -Texture (Ro-wound Skin Appearance) Scarring Rash -Moisture (Ro-wound Skin Appearance Assessed ) -Color (Ro-wound Skin Appearance) Erythema -Temperature (Ro-wound Skin No Abnormality Appearance) (Pt Warm) -Tenderness on Palpation (Ro-wound Yes Skin Appearance) -Ulcer Cleansing Rinsed/ Irrigated with Saline -Foul Odor after Cleansing No -Anesthetic Used 5% Lidocaine Gel #1 R [place] Cluster -Combined with other wound No -Current Size (cm) - Length 7.2 -Current Size (cm) - Width 6.7 -Current Size (cm) - Depth 0.1 -Total Square Cm 48.24 -Photo Taken No -Tunneling No -Undermining/Tunneling No -Exudate Amt Small (1-33%) -Exudate Type Serosanguineous -Wound Margin Distinct, Outline Attached -Granulation Amt None Present (0 %) -Slough/Fibrin Yes -Necrosis Amt Large (67-100%) -Necrotic Tissue Type Adherent Slough -Structure Exposed None/Limited to Skin Breakdown -Texture (Ro-wound Skin Appearance) Scarring Rash -Moisture (Ro-wound Skin Appearance Dry/Scaly ) -Color (Ro-wound Skin Appearance) No Abnormality Assessed -Temperature (Ro-wound Skin No Abnormality Appearance) (Pt Warm) -Tenderness on Palpation (Ro-wound No Skin Appearance) -Ulcer Cleansing Wound Cleanser -Foul Odor after Cleansing No -Anesthetic Used 4% Lidocaine Solution [Edema Assessment] -Lower Limb Edema Present Yes -Right Calf (cm) 21.5 -Right Ankle (cm) 34 WC - Nurse 2 - General Ulcer CM Notes Start: 06/17/17 09:55 Freq: Status: Active Protocol: Activity Type Activity Date Activity User E-Sign Co-Sign Detail Recorded Client Recorded Date Recorded By Document 07/01/17 11:34 DV [id number] 07/01/17 11:37 DV Document 07/01/17 12:00 [id number] 07/01/17 12:02 07/01/17 07/01/17 11:34 12:00 Wound Center Nurse 2 [Procedure/Treatment] #2- RFA -Time 11:35 -Correct Patient Yes -Correct Side, Site, Position Yes -Correct Procedure Yes -Procedure Performed Yes -Type of Procedure Debridement -Clinical Debridement Subcutaneous -Post Debridement Size (cm) - Length 2.1 -Post Debridement Size (cm) - Width 1.7 -Post Debridement Size (cm) - Depth 0.1 -Total Square Cm 3.57 -Wound/Ulcer Outcome Not Healed -Ulcer Cleansing Rinsed/ Irrigated with Saline -Foul Odor after Cleansing No -Bioengineered Tissue No -Bleeding Controlled with Pressure -Other siver nitrate -Treatment Response Procedure Tolerated Well #1 Adalberto [place] Cluster -Time 12:01 -Correct Patient Yes -Correct Side, Site, Position Yes -Correct Procedure Yes -Procedure Performed Yes -Type of Procedure Debridement -Clinical Debridement Subcutaneous -Post Debridement Size (cm) - Length 7.3 -Post Debridement Size (cm) - Width 6.8 -Post Debridement Size (cm) - Depth 0.1 -Total Square Cm 49.64 -Wound/Ulcer Outcome Not Healed -Ulcer Cleansing Rinsed/ Irrigated with Saline -Foul Odor after Cleansing No -Bioengineered Tissue Yes -Type of bioengineered Tissue EPIFIX -Expiration Date 04/13/22 -Product Lot Number [id number] -Percent Used 100 -Saline Lot Number [id number] -Bleeding Controlled with Pressure -Treatment Response Procedure Tolerated Well [See Physician Procedure note for Specifics] Pain Scale: 0-10 Numeric [Pain] -Is Patient Pain Free? Yes Yes Musculoskeletal: No Muscle Wasting Neurological: Cranial nerves II-XII grossly intact Psych/Mental Status: Normal Affect Debridement Note Post-Debridement Measurements/Treatment WC - Nurse 2 - General Ulcer CM Notes Start: 06/17/17 09:55 Freq: Status: Active Protocol: Activity Type Activity Date Activity User E-Sign Co-Sign Detail Recorded Client Recorded Date Recorded By Document 06/17/17 10:05 [id number] 06/17/17 10:07 Document 06/24/17 10:40 [id number] 06/24/17 10:44 Document 07/01/17 11:34 [id number] 07/01/17 11:37 DV Document 07/01/17 12:00 [id number] 07/01/17 12:02 06/17/17 06/24/17 07/01/17 10:05 10:40 11:34 Wound Center Nurse 2 #2- RFA -Time 11:35 -Correct Patient Yes -Correct Side, Site, Position Yes -Correct Procedure Yes -Procedure Performed Yes -Type of Procedure Debridement -Clinical Debridement Subcutaneous -Post Debridement Size (cm) - Length 2.1 -Post Debridement Size (cm) - Width 1.7 -Post Debridement Size (cm) - Depth 0.1 -Total Square Cm 3.57 -Wound/Ulcer Outcome Not Healed -Ulcer Cleansing Rinsed/ Irrigated with Saline -Foul Odor after Cleansing No -Bioengineered Tissue No -Bleeding Controlled with Pressure -Other siver nitrate -Treatment Response Procedure Tolerated Well #1 Adalberto [place]ust[place]os Cluster -Time 10:06 10:43 -Correct Patient Yes Yes -Correct Side, Site, Position Yes Yes -Correct Procedure Yes Yes -Procedure Performed Yes Yes -Type of Procedure Debridement Debridement -Clinical Debridement Subcutaneous Subcutaneous -Post Debridement Size (cm) - Length 7.8 2.5 -Post Debridement Size (cm) - Width 7 6.6 -Post Debridement Size (cm) - Depth 0.1 0.1 -Total Square Cm 54.6 16.50 -Wound/Ulcer Outcome Not Healed Not Healed -Ulcer Cleansing Rinsed/ Rinsed/ Irrigated with Irrigated with Saline Saline -Foul Odor after Cleansing No No -Bioengineered Tissue Yes Yes -Type of bioengineered Tissue EPIFIX EPIFIX -Expiration Date 03/13/22 04/13/22 -Product Lot Number [id number] -Percent Used 100 100 -Saline Lot Number [id number] -Bleeding Controlled with Pressure Pressure -Treatment Response Procedure Procedure Tolerated Well Tolerated Well Pain Scale: 0-10 Numeric Is Patient Pain Free? Yes Yes Yes 07/01/17 12:00 Wound Center Nurse 2 #2- RFA -Time -Correct Patient -Correct Side, Site, Position -Correct Procedure -Procedure Performed -Type of Procedure -Clinical Debridement -Post Debridement Size (cm) - Length -Post Debridement Size (cm) - Width -Post Debridement Size (cm) - Depth -Total Square Cm -Wound/Ulcer Outcome -Ulcer Cleansing -Foul Odor after Cleansing -Bioengineered Tissue -Bleeding Controlled with -Other -Treatment Response #1 Adalberto Bustillos Cluster -Time 12:01 -Correct Patient Yes -Correct Side, Site, Position Yes -Correct Procedure Yes -Procedure Performed Yes -Type of Procedure Debridement -Clinical Debridement Subcutaneous -Post Debridement Size (cm) - Length 7.3 -Post Debridement Size (cm) - Width 6.8 -Post Debridement Size (cm) - Depth 0.1 -Total Square Cm 49.64 -Wound/Ulcer Outcome Not Healed -Ulcer Cleansing Rinsed/ Irrigated with Saline -Foul Odor after Cleansing No -Bioengineered Tissue Yes -Type of bioengineered Tissue EPIFIX -Expiration Date 04/13/22 -Product Lot Number [id number] -Percent Used 100 -Saline Lot Number [id number] -Bleeding Controlled with Pressure -Treatment Response Procedure Tolerated Well Pain Scale: 0-10 Numeric Is Patient Pain Free? 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 leg edema. venous insufficiency. ruled out peripheral vascular disease. diabetes with neurapathy. malnutrition suspected. Right Forearm Wound with Fat Layer Exposed ( Sees Dr. Quintero ) Plan: Mr. Montalvo was seen as documented above for his right forearm wound which initially started out as a blister which was subsequently incised. Since Incision. he has had poor wound healing. He has been applying a dressing given by his PCP without much improvement. Debridement done as documented above. Procedure was well tolerated. Cultures taken. Other blood work already done by Dr. Castro. Apply Fibrochol daily with morenita mejia. Other conservative wound care as discussed with Dr. Castro. Follow up in 1 week.
[2017-07-08 08:32] VITALS: BP 139/75; PULSE 87; RESP 18; TEMP 36.6
--- NOTE | 2017-07-08 08:47 | PCM.WC.PN ---
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: Resolved Current Visit: Yes Code(s): L97.912 - Non-pressure chronic ulcer of unspecified part of right lower leg with fat layer exposed (2) Venous insufficiency Status: Chronic Current Visit: Yes Code(s): I87.2 - Venous insufficiency (chronic) (peripheral) (3) Leg edema, right Status: Chronic Current Visit: Yes Code(s): R60.0 - Localized edema (4) Peripheral vascular disease Status: Ruled-out Current Visit: Yes Code(s): I73.9 - Peripheral vascular disease, unspecified (5) Type 2 diabetes mellitus with diabetic polyneuropathy Status: Chronic Current Visit: Yes Code(s): E11.42 - Type 2 diabetes mellitus with diabetic polyneuropathy (6) Malnutrition Status: Chronic Current Visit: Yes Code(s): E46 - Unspecified protein-calorie malnutrition (7) Delayed wound healing Status: Chronic Current Visit: Yes Code(s): T14.8XXD - Other injury of unspecified body region, subsequent encounter Type of Wound Date of Service: 07/08/17 Chief Complaint: Right leg ulcer History of Wound: This 77-year-old male with multiple comorbidities was seen today in clinic with his son for right leg wound. He obtained his studies as recommended and is scheduled to see Dr. Cifuentes later this morning for venous intervention consultation. He denies fever, chill, nausea, vomiting. He had an epi fix advanced wound care product applied last week and denies drainage. He was also seen by Dr. Quintero today for his right arm ulcer. Progress of Wound: stAble - Physical Exam Vital Signs Temp Pulse Resp BP 97.8 F 87 18 139/75 H 07/08/17 08:32 07/08/17 08:32 07/08/17 08:32 07/08/17 08:32 General: Alert, Oriented x3, Cooperative Extremities: Capillary Refill Less than 3 Seconds, Diminished Peripheral Pulses, Edema Skin: Ulcer/ Wound - atrophic skin with full epithelialization noted. Skin is very friable. There is no erythema, maceration, or infection noted to the right limb. Peripheral dry flaking skin noted Wound Measurements and Assessment WC - Nurse 1 - General Ulcer Measurement Start: 06/17/17 09:55 Freq: Status: Active Protocol: Activity Type Activity Date Activity User E-Sign Co-Sign Detail Recorded Client Recorded Date Recorded By Document 07/08/17 08:32 TM [id number] 07/08/17 08:43 TM 07/08/17 08:32 Wound Center Nurse 1 [Ulcer Assessment] #2- RFA -Combined with other wound No -Current Size (cm) - Length 1.6 -Current Size (cm) - Width 1.4 -Current Size (cm) - Depth 0.1 -Total Square Cm 2.24 -Photo Taken No -Epithelialization Small 1-33% -Tunneling No -Undermining/Tunneling No -Circular Undermining No -Classification - Thickness Full Thickness without Exposed Support Structure -Exudate Amt Small (1-33%) -Exudate Type Serosanguineous -Wound Margin Distinct, Outline Attached -Granulation Amt None Present (0 %) -Granulation Quality N/A -Slough/Fibrin Yes -Necrosis Amt Large (67-100%) -Necrotic Tissue Type Adherent Slough -Structure Exposed Fascia Fat Layer Exposed -Texture (Ro-wound Skin Appearance) Localized Edema Scarring -Moisture (Ro-wound Skin Appearance Dry/Scaly ) -Color (Ro-wound Skin Appearance) Erythema Hemosiderin Staining -Temperature (Ro-wound Skin No Abnormality Appearance) (Pt Warm) -Tenderness on Palpation (Ro-wound No Skin Appearance) -Ulcer Cleansing Rinsed/ Irrigated with Saline -Foul Odor after Cleansing No -Anesthetic Used 5% Lidocaine Gel #1 R [place] -Combined with other wound No -Current Size (cm) - Length 0.1 -Current Size (cm) - Width 0.1 -Current Size (cm) - Depth 0.1 -Total Square Cm 0.01 -Date of Last Picture (Recall this 07/08/17 field) -Photo Taken Yes -Epithelialization Large 67-100% -Tunneling No -Undermining/Tunneling No -Circular Undermining No -Classification - Thickness Full Thickness without Exposed Support Structure -Exudate Amt Small (1-33%) -Exudate Type Serosanguineous -Wound Margin Distinct, Outline Attached -Granulation Amt Large (67-100%) -Granulation Quality [place] -Slough/Fibrin Yes -Necrosis Amt Small (1-33%) -Necrotic Tissue Type Adherent Slough -Structure Exposed None/Limited to Skin Breakdown -Texture (Ro-wound Skin Appearance) Localized Edema Scarring -Moisture (Ro-wound Skin Appearance Dry/Scaly ) -Color (Ro-wound Skin Appearance) Erythema Hemosiderin Staining -Temperature (Ro-wound Skin No Abnormality Appearance) (Pt Warm) -Tenderness on Palpation (Ro-wound No Skin Appearance) -Ulcer Cleansing Rinsed/ Irrigated with Saline -Foul Odor after Cleansing No -Anesthetic Used 5% Lidocaine Gel [Edema Assessment] -Lower Limb Edema Present Yes -Right Calf (cm) 32.0 -Right Ankle (cm) 21.0 - Nurse 2 - General Ulcer CM Notes Start: 06/17/17 09:55 Freq: Status: Active Protocol: Activity Type Activity Date Activity User E-Sign Co-Sign Detail Recorded Client Recorded Date Recorded By Document 07/08/17 08:32 [email or web address] 07/08/17 08:43 07/08/17 08:32 Wound Center Nurse 2 [Procedure/Treatment] #1 R [place] -Time 08:43 -Correct Patient Yes -Correct Side, Site, Position Yes -Correct Procedure Yes -Procedure Performed Yes -Post Debridement Size (cm) - Length 0 -Post Debridement Size (cm) - Width 0 -Post Debridement Size (cm) - Depth 0 -Total Square Cm 0 -Wound/Ulcer Outcome Healed- Epithelialized -Ulcer Cleansing Rinsed/ Irrigated with Saline -Foul Odor after Cleansing No -Bioengineered Tissue No -Bleeding Controlled with NA -Treatment Response Procedure Tolerated Well Musculoskeletal: No Tenderness to Palpation of Joints or Extremities, Muscle Wasting Neurological: Sensory exam intact to light touch and pain Psych/Mental Status: Normal Affect, Appropriate Debridement Note Post-Debridement Measurements/Treatment - Nurse 2 - General Ulcer CM Notes Start: 06/17/17 09:55 Freq: Status: Active Protocol: Activity Type Activity Date Activity User E-Sign Co-Sign Detail Recorded Client Recorded Date Recorded By Document 06/17/17 10:05 [email or web address] 06/17/17 10:07 Document 06/24/17 10:40 [id number] 06/24/17 10:44 Document 07/01/17 11:34 DV [id number] 07/01/17 11:37 DV Document 07/01/17 12:00 [id number] 07/01/17 12:02 Document 07/08/17 08:32 [id number] 07/08/17 08:43 TM 06/17/17 06/24/17 07/01/17 10:05 10:40 11:34 Wound Center Nurse 2 #2- RFA -Time 11:35 -Correct Patient Yes -Correct Side, Site, Position Yes -Correct Procedure Yes -Procedure Performed Yes -Type of Procedure Debridement -Clinical Debridement Subcutaneous -Post Debridement Size (cm) - Length 2.1 -Post Debridement Size (cm) - Width 1.7 -Post Debridement Size (cm) - Depth 0.1 -Total Square Cm 3.57 -Wound/Ulcer Outcome Not Healed -Ulcer Cleansing Rinsed/ Irrigated with Saline -Foul Odor after Cleansing No -Bioengineered Tissue No -Bleeding Controlled with Pressure -Other siver nitrate -Treatment Response Procedure Tolerated Well #1 R [place] -Time 10:06 10:43 -Correct Patient Yes Yes -Correct Side, Site, Position Yes Yes -Correct Procedure Yes Yes -Procedure Performed Yes Yes -Type of Procedure Debridement Debridement -Clinical Debridement Subcutaneous Subcutaneous -Post Debridement Size (cm) - Length 7.8 2.5 -Post Debridement Size (cm) - Width 7 6.6 -Post Debridement Size (cm) - Depth 0.1 0.1 -Total Square Cm 54.6 16.50 -Wound/Ulcer Outcome Not Healed Not Healed -Ulcer Cleansing Rinsed/ Rinsed/ Irrigated with Irrigated with Saline Saline -Foul Odor after Cleansing No No -Bioengineered Tissue Yes Yes -Type of bioengineered Tissue EPIFIX EPIFIX -Expiration Date 03/13/22 04/13/22 -Product Lot Number [id number] -Percent Used 100 100 -Saline Lot Number [id number] -Bleeding Controlled with Pressure Pressure -Treatment Response Procedure Procedure Tolerated Well Tolerated Well Pain Scale: 0-10 Numeric Is Patient Pain Free? Yes Yes Yes 07/01/17 07/08/17 12:00 08:32 Wound Center Nurse 2 #2- RFA -Time -Correct Patient -Correct Side, Site, Position -Correct Procedure -Procedure Performed -Type of Procedure -Clinical Debridement -Post Debridement Size (cm) - Length -Post Debridement Size (cm) - Width -Post Debridement Size (cm) - Depth -Total Square Cm -Wound/Ulcer Outcome -Ulcer Cleansing -Foul Odor after Cleansing -Bioengineered Tissue -Bleeding Controlled with -Other -Treatment Response #1 [place]alberto [place] Cluster -Time 12:01 08:43 -Correct Patient Yes Yes -Correct Side, Site, Position Yes Yes -Correct Procedure Yes Yes -Procedure Performed Yes Yes -Type of Procedure Debridement -Clinical Debridement Subcutaneous -Post Debridement Size (cm) - Length 7.3 0 -Post Debridement Size (cm) - Width 6.8 0 -Post Debridement Size (cm) - Depth 0.1 0 -Total Square Cm 49.64 0 -Wound/Ulcer Outcome Not Healed Healed- Epithelialized -Ulcer Cleansing Rinsed/ Rinsed/ Irrigated with Irrigated with Saline Saline -Foul Odor after Cleansing No No -Bioengineered Tissue Yes No -Type of bioengineered Tissue EPIFIX -Expiration Date 04/13/22 -Product Lot Number [id number] -Percent Used 100 -Saline Lot Number [id number] -Bleeding Controlled with Pressure NA -Treatment Response Procedure Procedure Tolerated Well Tolerated Well Pain Scale: 0-10 Numeric Is Patient Pain Free? Yes No debridement was completed today - Wound is healed Assessment/Plan Active Problems Venous insufficiency (Chronic) Leg edema, right (Chronic) Type 2 diabetes mellitus with diabetic polyneuropathy (Chronic) Malnutrition (Chronic) Delayed wound healing (Chronic) Open wound of right upper extremity (Acute) Assessment: right leg ulcer with fat layer exposed. leg edema. venous insufficiency with planned intervention. ruled out peripheral vascular disease. diabetes with neurapathy. malnutrition suspected. Right Forearm Wound with Fat Layer Exposed ( Sees Dr. Quintero ). xerosis lower extremities Plan: I reviewed and discussed the case with this patient as well as his son. Admit was not performed because the wound site has healed today. He understands this is a very friable area will still keep this covered with a dry gauze this upcoming week. His venous Doppler with reflex evaluation and an incompetent right lower extremity greater saphenous vein was noted. He will go for venous intervention consultation with Dr. Cifuentes this morning to prevent recurrence. His noninvasive arterial vascular studies were also reviewed and he had biphasic waveforms from the ankle-brachial index. I recommend compression consisting of Tubigrip understands he may be transitioned to further compression therapy after his venous intervention. To elevate legs at rest and to avoid idle sitting or standing. Lac-Hydrin was provided for his right leg skin ; to apply 1-2 times daily. He also saw Dr. Quintero for his right arm wound and intervention is greatly appreciated. To return to clinic in 1 week or call sooner if he has any questions or concerns.
--- NOTE | 2017-07-08 17:13 | PCM.WC.PN ---
(1) Open wound of right upper extremity Status: Acute Current Visit: Yes Qualifiers: Encounter type: initial encounter Qualified Code(s): S41.101A - Unspecified open wound of right upper arm, initial encounter Code(s): S41.101A - Unspecified open wound of right upper arm, initial encounter (2) Type 2 diabetes mellitus with diabetic polyneuropathy Status: Chronic Current Visit: Yes Code(s): E11.42 - Type 2 diabetes mellitus with diabetic polyneuropathy Type of Wound Date of Service: 07/08/17 Chief Complaint: Right leg ulcer History of Wound: Mr Montalvo is a 77yo who also currently sees Dr. Castro for lower extremity ulcers. I was asked to see him for a non healing right upper extremity wound. Initially noted just over a month ago while in the hospital. He is unclear about the exact precipitating event but noted a blister beside an IV line which was subsequently incised about a week later while in the [facility]. Per patient, no significant drainage was noted after it was incised. He has been applying a dressing daily however, he is unsure of the name. This is not caused any significant change in the wound. He denies worsening or increasing pain at the wound site. He feels well and denies any other compliants at this time. Progress of Wound: Stable. - Physical Exam Vital Signs Temp Pulse Resp BP 97.8 F 87 18 139/75 H 07/08/17 08:32 07/08/17 08:32 07/08/17 08:32 07/08/17 08:32 General: Alert, Oriented x3, Cooperative HEENT: Atraumatic, Normocephalic Oral: Moist Mucosa Neck: Supple Lungs: Normal air movement Cardiovascular: Regular rate Abdomen: Obese Skin: Ulcer/ Wound Wound Measurements and Assessment WC - Nurse 1 - General Ulcer Measurement Start: 06/17/17 09:55 Freq: Status: Active Protocol: Activity Type Activity Date Activity User E-Sign Co-Sign Detail Recorded Client Recorded Date Recorded By Document 07/08/17 08:32 [id number] 07/08/17 08:43 TM 07/08/17 08:32 Wound Center Nurse 1 [Ulcer Assessment] #2- RFA -Combined with other wound No -Current Size (cm) - Length 1.6 -Current Size (cm) - Width 1.4 -Current Size (cm) - Depth 0.1 -Total Square Cm 2.24 -Photo Taken No -Epithelialization Small 1-33% -Tunneling No -Undermining/Tunneling No -Circular Undermining No -Classification - Thickness Full Thickness without Exposed Support Structure -Exudate Amt Small (1-33%) -Exudate Type Serosanguineous -Wound Margin Distinct, Outline Attached -Granulation Amt None Present (0 %) -Granulation Quality N/A -Slough/Fibrin Yes -Necrosis Amt Large (67-100%) -Necrotic Tissue Type Adherent Slough -Structure Exposed Fascia Fat Layer Exposed -Texture (Ro-wound Skin Appearance) Localized Edema Scarring -Moisture (Ro-wound Skin Appearance Dry/Scaly ) -Color (Ro-wound Skin Appearance) Erythema Hemosiderin Staining -Temperature (Ro-wound Skin No Abnormality Appearance) (Pt Warm) -Tenderness on Palpation (Ro-wound No Skin Appearance) -Ulcer Cleansing Rinsed/ Irrigated with Saline -Foul Odor after Cleansing No -Anesthetic Used 5% Lidocaine Gel #1 R [place] -Combined with other wound No -Current Size (cm) - Length 0.1 -Current Size (cm) - Width 0.1 -Current Size (cm) - Depth 0.1 -Total Square Cm 0.01 -Date of Last Picture (Recall this 07/08/17 field) -Photo Taken Yes -Epithelialization Large 67-100% -Tunneling No -Undermining/Tunneling No -Circular Undermining No -Classification - Thickness Full Thickness without Exposed Support Structure -Exudate Amt Small (1-33%) -Exudate Type Serosanguineous -Wound Margin Distinct, Outline Attached -Granulation Amt Large (67-100%) -Granulation Quality [place] -Slough/Fibrin Yes -Necrosis Amt Small (1-33%) -Necrotic Tissue Type Adherent Slough -Structure Exposed None/Limited to Skin Breakdown -Texture (Ro-wound Skin Appearance) Localized Edema Scarring -Moisture (Ro-wound Skin Appearance Dry/Scaly ) -Color (Ro-wound Skin Appearance) Erythema Hemosiderin Staining -Temperature (Ro-wound Skin No Abnormality Appearance) (Pt Warm) -Tenderness on Palpation (Ro-wound No Skin Appearance) -Ulcer Cleansing Rinsed/ Irrigated with Saline -Foul Odor after Cleansing No -Anesthetic Used 5% Lidocaine Gel [Edema Assessment] -Lower Limb Edema Present Yes -Right Calf (cm) 32.0 -Right Ankle (cm) 21.0 LAUREN - Nurse 2 - General Ulcer CM Notes Start: 06/17/17 09:55 Freq: Status: Active Protocol: Activity Type Activity Date Activity User E-Sign Co-Sign Detail Recorded Client Recorded Date Recorded By Document 07/08/17 08:32 TM [id number] 07/08/17 08:43 TM Document 07/08/17 08:51 DV [id number] 07/08/17 09:00 DV 07/08/17 07/08/17 08:32 08:51 Pain Scale: 0-10 Numeric [Pain] -Is Patient Pain Free? Yes [See Physician Procedure note for Specifics] Wound Center Nurse 2 [Procedure/Treatment] #2- RFA -Time 08:52 -Correct Patient Yes -Correct Side, Site, Position Yes -Correct Procedure Yes -Procedure Performed Yes -Type of Procedure Debridement -Clinical Debridement Subcutaneous -Post Debridement Size (cm) - Length 2.0 -Post Debridement Size (cm) - Width 1.7 -Post Debridement Size (cm) - Depth 0.1 -Total Square Cm 3.40 -Wound/Ulcer Outcome Not Healed -Ulcer Cleansing Rinsed/ Irrigated with Saline -Foul Odor after Cleansing No -Bioengineered Tissue No -Bleeding Controlled with Pressure -Treatment Response Procedure Tolerated Well #1 R [place] Cluster -Time 08:43 -Correct Patient Yes -Correct Side, Site, Position Yes -Correct Procedure Yes -Procedure Performed Yes -Post Debridement Size (cm) - Length 0 -Post Debridement Size (cm) - Width 0 -Post Debridement Size (cm) - Depth 0 -Total Square Cm 0 -Wound/Ulcer Outcome Healed- Epithelialized -Ulcer Cleansing Rinsed/ Irrigated with Saline -Foul Odor after Cleansing No -Bioengineered Tissue No -Bleeding Controlled with NA -Treatment Response Procedure Tolerated Well Musculoskeletal: No Muscle Wasting Neurological: Cranial nerves II-XII grossly intact Psych/Mental Status: Normal Affect Debridement Note Post-Debridement Measurements/Treatment - Nurse 2 - General Ulcer CM Notes Start: 06/17/17 09:55 Freq: Status: Active Protocol: Activity Type Activity Date Activity User E-Sign Co-Sign Detail Recorded Client Recorded Date Recorded By Document 06/17/17 10:05 [id number] 06/17/17 10:07 JF Document 06/24/17 10:40 JF [id number] 06/24/17 10:44 JF Document 07/01/17 11:34 DV [id number] 07/01/17 11:37 DV Document 07/01/17 12:00 JF [id number] 07/01/17 12:02 JF Document 07/08/17 08:32 TM [id number] 07/08/17 08:43 TM Document 07/08/17 08:51 DV [id number] 07/08/17 09:00 DV 06/17/17 06/24/17 07/01/17 10:05 10:40 11:34 Wound Center Nurse 2 #2- RFA -Time 11:35 -Correct Patient Yes -Correct Side, Site, Position Yes -Correct Procedure Yes -Procedure Performed Yes -Type of Procedure Debridement -Clinical Debridement Subcutaneous -Post Debridement Size (cm) - Length 2.1 -Post Debridement Size (cm) - Width 1.7 -Post Debridement Size (cm) - Depth 0.1 -Total Square Cm 3.57 -Wound/Ulcer Outcome Not Healed -Ulcer Cleansing Rinsed/ Irrigated with Saline -Foul Odor after Cleansing No -Bioengineered Tissue No -Bleeding Controlled with Pressure -Other siver nitrate -Treatment Response Procedure Tolerated Well #1 R [place] Cluster -Time 10:06 10:43 -Correct Patient Yes Yes -Correct Side, Site, Position Yes Yes -Correct Procedure Yes Yes -Procedure Performed Yes Yes -Type of Procedure Debridement Debridement -Clinical Debridement Subcutaneous Subcutaneous -Post Debridement Size (cm) - Length 7.8 2.5 -Post Debridement Size (cm) - Width 7 6.6 -Post Debridement Size (cm) - Depth 0.1 0.1 -Total Square Cm 54.6 16.50 -Wound/Ulcer Outcome Not Healed Not Healed -Ulcer Cleansing Rinsed/ Rinsed/ Irrigated with Irrigated with Saline Saline -Foul Odor after Cleansing No No -Bioengineered Tissue Yes Yes -Type of bioengineered Tissue EPIFIX EPIFIX -Expiration Date 03/13/22 04/13/22 -Product Lot Number [id number] -Percent Used 100 100 -Saline Lot Number [id number] -Bleeding Controlled with Pressure Pressure -Treatment Response Procedure Procedure Tolerated Well Tolerated Well Pain Scale: 0-10 Numeric Is Patient Pain Free? Yes Yes Yes 03/21/18 03/28/18 03/28/18 12:00 08:32 08:51 Wound Center Nurse 2 #2- RFA -Time 08:52 -Correct Patient Yes -Correct Side, Site, Position Yes -Correct Procedure Yes -Procedure Performed Yes -Type of Procedure Debridement -Clinical Debridement Subcutaneous -Post Debridement Size (cm) - Length 2.0 -Post Debridement Size (cm) - Width 1.7 -Post Debridement Size (cm) - Depth 0.1 -Total Square Cm 3.40 -Wound/Ulcer Outcome Not Healed -Ulcer Cleansing Rinsed/ Irrigated with Saline -Foul Odor after Cleansing No -Bioengineered Tissue No -Bleeding Controlled with Pressure -Other -Treatment Response Procedure Tolerated Well #1 R [place] Cluster -Time 12:01 08:43 -Correct Patient Yes Yes -Correct Side, Site, Position Yes Yes -Correct Procedure Yes Yes -Procedure Performed Yes Yes -Type of Procedure Debridement -Clinical Debridement Subcutaneous -Post Debridement Size (cm) - Length 7.3 0 -Post Debridement Size (cm) - Width 6.8 0 -Post Debridement Size (cm) - Depth 0.1 0 -Total Square Cm 49.64 0 -Wound/Ulcer Outcome Not Healed Healed- Epithelialized -Ulcer Cleansing Rinsed/ Rinsed/ Irrigated with Irrigated with Saline Saline -Foul Odor after Cleansing No No -Bioengineered Tissue Yes No -Type of bioengineered Tissue EPIFIX -Expiration Date 04/13/22 -Product Lot Number [id number] -Percent Used 100 -Saline Lot Number [id number] -Bleeding Controlled with Pressure NA -Treatment Response Procedure Procedure Tolerated Well Tolerated Well Pain Scale: 0-10 Numeric Is Patient Pain Free? Yes Yes Wound debrided: Right Forearm Wound Grade/Stage: Stage II Type of Debridement: Excisional debridement Anesthesia Used: 4% Lidocaine Solution Depth: Down to and including healthy tissue, in the subcutaneous layer Percentage of wound debrided: 100 Instrument Used: 7mm curette Tissue Removed: Slough and Devitalized tissue Severity: Fat Layer Exposed Amount of bleeding with debridement: Mild Bleeding Controlled with: Pressure Patient tolerated procedure well Assessment/Plan Active Problems Venous insufficiency (Chronic) Leg edema, right (Chronic) Type 2 diabetes mellitus with diabetic polyneuropathy (Chronic) Malnutrition (Chronic) Delayed wound healing (Chronic) Open wound of right upper extremity (Acute) Assessment: right leg ulcer with fat layer exposed. leg edema. venous insufficiency with planned intervention. ruled out peripheral vascular disease. diabetes with neurapathy. malnutrition suspected. Right Forearm Wound with Fat Layer Exposed ( Sees Dr. Quintero ). xerosis lower extremities Plan: Right forearm wound with significant dryness/dried on wound dressing. Debridement done as documented above. Procedure was well-tolerated. Patient and his son were instructed and also written instructions sent to the nursing facility about daily cleaning and dressing. Will switch to Santyl nickel thick application on a moistened bed daily with Adaptic over top. Continue increase protein intake/supplements. Order wound care measures as discussed earlier by Dr. Castro. Follow-up in 1 week. This note was generated with [employer] dictation software. It may contain incorrect words, spelling, and punctuation that were not noted in checking the note before signing.
--- NOTE | 2017-07-08 17:21 | PN.PCM_ITS ---
(1) Open wound of right upper extremity Status: Acute Current Visit: Yes Qualifiers: Encounter type: initial encounter Qualified Code(s): S41.101A - Unspecified open wound of right upper arm, initial encounter Code(s): S41.101A - Unspecified open wound of right upper arm, initial encounter (2) Type 2 diabetes mellitus with diabetic polyneuropathy Status: Chronic Current Visit: Yes Code(s): E11.42 - Type 2 diabetes mellitus with diabetic polyneuropathy Type of Wound Date of Service: 07/08/17 Chief Complaint: Right leg ulcer History of Wound: Mr Montalvo is a 77yo who also currently sees Dr. Castro for lower extremity ulcers. I was asked to see him for a non healing right upper extremity wound. Initially noted just over a month ago while in the hospital. He is unclear about the exact precipitating event but noted a blister beside an IV line which was subsequently incised about a week later while in the long term. Per patient, no significant drainage was noted after it was incised. He has been applying a dressing daily however, he is unsure of the name. This is not caused any significant change in the wound. He denies worsening or increasing pain at the wound site. He feels well and denies any other compliants at this time. Progress of Wound: Stable. - Physical Exam Vital Signs Temp Pulse Resp BP 97.8 F 87 18 139/75 H 07/08/17 08:32 07/08/17 08:32 07/08/17 08:32 07/08/17 08:32 General: Alert, Oriented x3, Cooperative HEENT: Atraumatic, Normocephalic Oral: Moist Mucosa Neck: Supple Lungs: Normal air movement Cardiovascular: Regular rate Abdomen: Obese Skin: Ulcer/ Wound Wound Measurements and Assessment WC - Nurse 1 - General Ulcer Measurement Start: 06/17/17 09:55 Freq: Status: Active Protocol: Activity Type Activity Date Activity User E-Sign Co-Sign Detail Recorded Client Recorded Date Recorded By Document 07/08/17 08:32 [id number] 07/08/17 08:43 TM 07/08/17 08:32 Wound Center Nurse 1 [Ulcer Assessment] #2- RFA -Combined with other wound No -Current Size (cm) - Length 1.6 -Current Size (cm) - Width 1.4 -Current Size (cm) - Depth 0.1 -Total Square Cm 2.24 -Photo Taken No -Epithelialization Small 1-33% -Tunneling No -Undermining/Tunneling No -Circular Undermining No -Classification - Thickness Full Thickness without Exposed Support Structure -Exudate Amt Small (1-33%) -Exudate Type Serosanguineous -Wound Margin Distinct, Outline Attached -Granulation Amt None Present (0 %) -Granulation Quality N/A -Slough/Fibrin Yes -Necrosis Amt Large (67-100%) -Necrotic Tissue Type Adherent Slough -Structure Exposed Fascia Fat Layer Exposed -Texture (Ro-wound Skin Appearance) Localized Edema Scarring -Moisture (Ro-wound Skin Appearance Dry/Scaly ) -Color (Ro-wound Skin Appearance) Erythema Hemosiderin Staining -Temperature (Ro-wound Skin No Abnormality Appearance) (Pt Warm) -Tenderness on Palpation (Ro-wound No Skin Appearance) -Ulcer Cleansing Rinsed/ Irrigated with Saline -Foul Odor after Cleansing No -Anesthetic Used 5% Lidocaine Gel #1 R [place] -Combined with other wound No -Current Size (cm) - Length 0.1 -Current Size (cm) - Width 0.1 -Current Size (cm) - Depth 0.1 -Total Square Cm 0.01 -Date of Last Picture (Recall this 07/08/17 field) -Photo Taken Yes -Epithelialization Large 67-100% -Tunneling No -Undermining/Tunneling No -Circular Undermining No -Classification - Thickness Full Thickness without Exposed Support Structure -Exudate Amt Small (1-33%) -Exudate Type Serosanguineous -Wound Margin Distinct, Outline Attached -Granulation Amt Large (67-100%) -Granulation Quality [place] -Slough/Fibrin Yes -Necrosis Amt Small (1-33%) -Necrotic Tissue Type Adherent Slough -Structure Exposed None/Limited to Skin Breakdown -Texture (Ro-wound Skin Appearance) Localized Edema Scarring -Moisture (Ro-wound Skin Appearance Dry/Scaly ) -Color (Ro-wound Skin Appearance) Erythema Hemosiderin Staining -Temperature (Ro-wound Skin No Abnormality Appearance) (Pt Warm) -Tenderness on Palpation (Ro-wound No Skin Appearance) -Ulcer Cleansing Rinsed/ Irrigated with Saline -Foul Odor after Cleansing No -Anesthetic Used 5% Lidocaine Gel [Edema Assessment] -Lower Limb Edema Present Yes -Right Calf (cm) 32.0 -Right Ankle (cm) 21.0 LAUREN - Nurse 2 - General Ulcer CM Notes Start: 06/17/17 09:55 Freq: Status: Active Protocol: Activity Type Activity Date Activity User E-Sign Co-Sign Detail Recorded Client Recorded Date Recorded By Document 07/08/17 08:32 TM [id number] 07/08/17 08:43 TM Document 07/08/17 08:51 DV [id number] 07/08/17 09:00 DV 07/08/17 07/08/17 08:32 08:51 Pain Scale: 0-10 Numeric [Pain] -Is Patient Pain Free? Yes [See Physician Procedure note for Specifics] Wound Center Nurse 2 [Procedure/Treatment] #2- RFA -Time 08:52 -Correct Patient Yes -Correct Side, Site, Position Yes -Correct Procedure Yes -Procedure Performed Yes -Type of Procedure Debridement -Clinical Debridement Subcutaneous -Post Debridement Size (cm) - Length 2.0 -Post Debridement Size (cm) - Width 1.7 -Post Debridement Size (cm) - Depth 0.1 -Total Square Cm 3.40 -Wound/Ulcer Outcome Not Healed -Ulcer Cleansing Rinsed/ Irrigated with Saline -Foul Odor after Cleansing No -Bioengineered Tissue No -Bleeding Controlled with Pressure -Treatment Response Procedure Tolerated Well #1 R [place] -Time 08:43 -Correct Patient Yes -Correct Side, Site, Position Yes -Correct Procedure Yes -Procedure Performed Yes -Post Debridement Size (cm) - Length 0 -Post Debridement Size (cm) - Width 0 -Post Debridement Size (cm) - Depth 0 -Total Square Cm 0 -Wound/Ulcer Outcome Healed- Epithelialized -Ulcer Cleansing Rinsed/ Irrigated with Saline -Foul Odor after Cleansing No -Bioengineered Tissue No -Bleeding Controlled with NA -Treatment Response Procedure Tolerated Well Musculoskeletal: No Muscle Wasting Neurological: Cranial nerves II-XII grossly intact Psych/Mental Status: Normal Affect Debridement Note Post-Debridement Measurements/Treatment - Nurse 2 - General Ulcer CM Notes Start: 06/17/17 09:55 Freq: Status: Active Protocol: Activity Type Activity Date Activity User E-Sign Co-Sign Detail Recorded Client Recorded Date Recorded By Document 06/17/17 10:05 [id number] 06/17/17 10:07 JF Document 06/24/17 10:40 JF [id number] 06/24/17 10:44 JF Document 07/01/17 11:34 DV [id number] 07/01/17 11:37 DV Document 07/01/17 12:00 JF [id number] 07/01/17 12:02 JF Document 07/08/17 08:32 TM [id number] 07/08/17 08:43 TM Document 07/08/17 08:51 DV [id number] 07/08/17 09:00 DV 06/17/17 06/24/17 07/01/17 10:05 10:40 11:34 Wound Center Nurse 2 #2- RFA -Time 11:35 -Correct Patient Yes -Correct Side, Site, Position Yes -Correct Procedure Yes -Procedure Performed Yes -Type of Procedure Debridement -Clinical Debridement Subcutaneous -Post Debridement Size (cm) - Length 2.1 -Post Debridement Size (cm) - Width 1.7 -Post Debridement Size (cm) - Depth 0.1 -Total Square Cm 3.57 -Wound/Ulcer Outcome Not Healed -Ulcer Cleansing Rinsed/ Irrigated with Saline -Foul Odor after Cleansing No -Bioengineered Tissue No -Bleeding Controlled with Pressure -Other siver nitrate -Treatment Response Procedure Tolerated Well #1 R [place] -Time 10:06 10:43 -Correct Patient Yes Yes -Correct Side, Site, Position Yes Yes -Correct Procedure Yes Yes -Procedure Performed Yes Yes -Type of Procedure Debridement Debridement -Clinical Debridement Subcutaneous Subcutaneous -Post Debridement Size (cm) - Length 7.8 2.5 -Post Debridement Size (cm) - Width 7 6.6 -Post Debridement Size (cm) - Depth 0.1 0.1 -Total Square Cm 54.6 16.50 -Wound/Ulcer Outcome Not Healed Not Healed -Ulcer Cleansing Rinsed/ Rinsed/ Irrigated with Irrigated with Saline Saline -Foul Odor after Cleansing No No -Bioengineered Tissue Yes Yes -Type of bioengineered Tissue EPIFIX EPIFIX -Expiration Date 03/13/22 04/13/22 -Product Lot Number [id number] -Percent Used 100 100 -Saline Lot Number [id number] -Bleeding Controlled with Pressure Pressure -Treatment Response Procedure Procedure Tolerated Well Tolerated Well Pain Scale: 0-10 Numeric Is Patient Pain Free? Yes Yes Yes 03/21/18 03/28/18 03/28/18 12:00 08:32 08:51 Wound Center Nurse 2 #2- RFA -Time 08:52 -Correct Patient Yes -Correct Side, Site, Position Yes -Correct Procedure Yes -Procedure Performed Yes -Type of Procedure Debridement -Clinical Debridement Subcutaneous -Post Debridement Size (cm) - Length 2.0 -Post Debridement Size (cm) - Width 1.7 -Post Debridement Size (cm) - Depth 0.1 -Total Square Cm 3.40 -Wound/Ulcer Outcome Not Healed -Ulcer Cleansing Rinsed/ Irrigated with Saline -Foul Odor after Cleansing No -Bioengineered Tissue No -Bleeding Controlled with Pressure -Other -Treatment Response Procedure Tolerated Well #1 R [place] -Time 12:01 08:43 -Correct Patient Yes Yes -Correct Side, Site, Position Yes Yes -Correct Procedure Yes Yes -Procedure Performed Yes Yes -Type of Procedure Debridement -Clinical Debridement Subcutaneous -Post Debridement Size (cm) - Length 7.3 0 -Post Debridement Size (cm) - Width 6.8 0 -Post Debridement Size (cm) - Depth 0.1 0 -Total Square Cm 49.64 0 -Wound/Ulcer Outcome Not Healed Healed- Epithelialized -Ulcer Cleansing Rinsed/ Rinsed/ Irrigated with Irrigated with Saline Saline -Foul Odor after Cleansing No No -Bioengineered Tissue Yes No -Type of bioengineered Tissue EPIFIX -Expiration Date 04/13/22 -Product Lot Number [id number] -Percent Used 100 -Saline Lot Number [id number] -Bleeding Controlled with Pressure NA -Treatment Response Procedure Procedure Tolerated Well Tolerated Well Pain Scale: 0-10 Numeric Is Patient Pain Free? Yes Yes Wound debrided: Right Forearm Wound Grade/Stage: Stage II Type of Debridement: Excisional debridement Anesthesia Used: 4% Lidocaine Solution Depth: Down to and including healthy tissue, in the subcutaneous layer Percentage of wound debrided: 100 Instrument Used: 7mm curette Tissue Removed: Slough and Devitalized tissue Severity: Fat Layer Exposed Amount of bleeding with debridement: Mild Bleeding Controlled with: Pressure Patient tolerated procedure well Assessment/Plan Active Problems Venous insufficiency (Chronic) Leg edema, right (Chronic) Type 2 diabetes mellitus with diabetic polyneuropathy (Chronic) Malnutrition (Chronic) Delayed wound healing (Chronic) Open wound of right upper extremity (Acute) Assessment: right leg ulcer with fat layer exposed. leg edema. venous insufficiency with planned intervention. ruled out peripheral vascular disease. diabetes with neurapathy. malnutrition suspected. Right Forearm Wound with Fat Layer Exposed ( Sees Dr. Quintero ). xerosis lower extremities Plan: Right forearm wound with significant dryness/dried on wound dressing. Debridement done as documented above. Procedure was well-tolerated. Patient and his son were instructed and also written instructions sent to the nursing facility about daily cleaning and dressing. Will switch to Santyl nickel thick application on a moistened bed daily with Adaptic over top. Continue increase protein intake/supplements. Order wound care measures as discussed earlier by Dr. Castro. Follow-up in 1 week. This note was generated with [employer] dictation software. It may contain incorrect words, spelling, and punctuation that were not noted in checking the note before signing.
== END 2017-07-11 23:59 ==
LOC: WC 08:00
PROVIDERS: Family Provider Internal Medicine; PCP Internal Medicine; Visit Provider Internal Medicine
DX: E11.622 Type 2 diabetes mellitus with other skin ulcer (principal); L97.812 Non-pressure chronic ulcer of other part of right lower leg with fat layer exposed; E11.51 Type 2 diabetes mellitus with diabetic peripheral angiopathy without gangrene; R60.0 Localized edema; E11.42 Type 2 diabetes mellitus with diabetic polyneuropathy; S50.821 Blister (nonthermal) of right forearm; X58.XXXS Exposure to other specified factors, sequela
CPT/HCPCS: 11042; 15271; 87070; 87075; 87205; 99214; Q4131; G0463

== ENCOUNTER 2017-08-05 09:45 | Outpatient (RCR) | payer MEDICARE, OTHER, SELFPAY ==
[2017-07-12 00:57] VITALS: PULSE 87; RESP 18; TEMP 36.6
[2017-07-15 10:13] VITALS: BP 138/96; PULSE 102; RESP 20; TEMP 37.2
--- NOTE | 2017-07-15 11:14 | PN.PCM_ITS ---
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: Resolved Current Visit: Yes Code(s): L97.912 - Non-pressure chronic ulcer of unspecified part of right lower leg with fat layer exposed (2) Venous insufficiency Status: Chronic Current Visit: Yes Code(s): I87.2 - Venous insufficiency ( chronic) (peripheral) (3) Type 2 diabetes mellitus with diabetic polyneuropathy Status: Chronic Current Visit: Yes Code(s): E11.42 - Type 2 diabetes mellitus with diabetic polyneuropathy Type of Wound Date of Service: 07/16/17 Chief Complaint: Right leg ulcer History of Wound: Mr Montalvo is a 77yo who returns to follow-up for his right leg ulcers that have demonstrated delayed healing. He denies drainage or odor and thinks the wounds are healed today. He also went to his vascular referral and reports Dr. Cifuentes did not recommend any intervention. He has been trying to elevate his leg at rest. Progress of Wound: Healed - Physical Exam Vital Signs Temp Pulse Resp BP 98.9 F 102 H 20 H 138/96 H 07/15/17 10:13 07/15/17 10:13 07/15/17 10:13 07/15/17 10:13 General: Alert, Oriented x3, Cooperative Extremities: No cyanosis, Capillary Refill Less than 3 Seconds, No Calf Tenderness - Negative Ricki and Urena bilateral, Edema - Bilateral lower extremities Skin: Ulcer/ Wound - Full epithelialization is noted in the wound is healed. His peripheral skin is very dry and atrophic and no hair is noted bilateral Wound Measurements and Assessment WC - Nurse 1 - General Ulcer Measurement Start: 07/15/17 10:13 Freq: Status: Active Protocol: Activity Type Activity Date Activity User E-Sign Co-Sign Detail Recorded Client Recorded Date Recorded By Document 07/15/17 10:13 DL [id number] 07/15/17 10:23 DL 07/15/17 10:13 Wound Center Nurse 1 [Ulcer Assessment] #2- RFA -Current Size (cm) - Length 2.2 -Current Size (cm) - Width 1.8 -Current Size (cm) - Depth 0.1 -Total Square Cm 3.96 -Photo Taken No -Exudate Amt Small (1-33%) -Exudate Type Serosanguineous -Wound Margin Distinct, Outline Attached -Granulation Amt Medium (34-66%) -Granulation Quality Red -Necrosis Amt Medium (34-66%) -Necrotic Tissue Type Adherent Slough -Structure Exposed N/A -Texture (Ro-wound Skin Appearance) Scarring -Moisture (Ro-wound Skin Appearance No Abnormality ) -Color (Ro-wound Skin Appearance) Erythema Rubor -Temperature (Ro-wound Skin No Abnormality Appearance) (Pt Warm) -Ulcer Cleansing Wound Cleanser -Foul Odor after Cleansing No -Anesthetic Used 4% Lidocaine Solution [Edema Assessment] -Right Calf (cm) 32.2 -Right Ankle (cm) 20.5 WC - Nurse 2 - General Ulcer CM Notes Start: 07/15/17 10:13 Freq: Status: Active Protocol: Activity Type Activity Date Activity User E-Sign Co-Sign Detail Recorded Client Recorded Date Recorded By Document 07/15/17 10:41 [id number] 07/15/17 10:44 07/15/17 10:41 Wound Center Nurse 2 [Procedure/Treatment] #1 R [place] -Time 10:43 -Correct Patient Yes -Correct Side, Site, Position Yes -Correct Procedure Yes -Procedure Performed Yes -Post Debridement Size (cm) - Length 0 -Post Debridement Size (cm) - Width 0 -Post Debridement Size (cm) - Depth 0 -Total Square Cm 0 -Wound/Ulcer Outcome Healed- Epithelialized -Ulcer Cleansing Rinsed/ Irrigated with Saline -Foul Odor after Cleansing No -Bioengineered Tissue No -Bleeding Controlled with NA -Treatment Response Procedure Tolerated Well [See Physician Procedure note for Specifics] Pain Scale: 0-10 Numeric [Pain] -Is Patient Pain Free? Yes Musculoskeletal: No Tenderness to Palpation of Joints or Extremities, Muscle Wasting, - - Compartments of the right lower extremity remain soft and palpation Neurological: - - Lack of epicritic sensation to light touch consistent with neuropathy right lower extremity Psych/Mental Status: Normal Affect, Appropriate Debridement Note Post-Debridement Measurements/Treatment - Nurse 2 - General Ulcer CM Notes Start: 07/15/17 10:13 Freq: Status: Active Protocol: Activity Type Activity Date Activity User E-Sign Co-Sign Detail Recorded Client Recorded Date Recorded By Document 07/15/17 10:41 [id number] 07/15/17 10:44 TM 07/15/17 10:41 Wound Center Nurse 2 #1 R [place] -Time 10:43 -Correct Patient Yes -Correct Side, Site, Position Yes -Correct Procedure Yes -Procedure Performed Yes -Post Debridement Size (cm) - Length 0 -Post Debridement Size (cm) - Width 0 -Post Debridement Size (cm) - Depth 0 -Total Square Cm 0 -Wound/Ulcer Outcome Healed- Epithelialized -Ulcer Cleansing Rinsed/ Irrigated with Saline -Foul Odor after Cleansing No -Bioengineered Tissue No -Bleeding Controlled with NA -Treatment Response Procedure Tolerated Well Pain Scale: 0-10 Numeric Is Patient Pain Free? Yes Wound debrided: anterior leg Laterality: Right No debridement was completed today - The wound has healed Assessment/Plan Active Problems Venous insufficiency (Chronic) Type 2 diabetes mellitus with diabetic polyneuropathy (Chronic) Delayed wound healing (Chronic) Open wound of right upper extremity (Acute) Assessment: right leg ulcer -healed. leg edema. venous insufficiency with planned intervention. ruled out peripheral vascular disease. diabetes with neurapathy. malnutrition suspected. Right Forearm Wound with Fat Layer Exposed ( Sees Dr. Quintero ). xerosis lower extremities Plan: I reviewed and discussed his care plan today. No debridement was performed because the wound is healed. He reports no additional intervention is recommended with vascular surgeon for his venous insufficiency, Dr. Cifuentes. I will request these notes and further review the intervention plan. To continue with compression garments. A prescription for compression stockings 20 -30 mmHg was provided. To elevate limbs while at rest. To avoid idle sitting or standing. These recommendations are imperative to avoid recurrence. He was advised he can stop performing dressing changes to the right lower extremity because the wound has healed. He was also reassured there are no signs of infection. To continue proper glycemic control and medical management to optimize health. He is discharged from the wound care center at this time. He was advised to follow-up at the foot and ankle center for any future possible lower extremity needs. I also recommend he follow-up for diabetic foot check, palliative care if needed, and for fitting of extra-depth diabetic shoes To prevent ulceration formation and to provide extra support and protection. I answered all his questions. To continue to follow-up with Dr. Quintero for right forearm ulcer as advised.
--- NOTE | 2017-07-15 19:13 | PCM.WC.PN ---
(1) Type 2 diabetes mellitus with diabetic polyneuropathy Status: Chronic Current Visit: Yes Code(s): E11.42 - Type 2 diabetes mellitus with diabetic polyneuropathy (2) Open wound of right upper extremity Status: Acute Current Visit: Yes Qualifiers: Encounter type: initial encounter Qualified Code(s): S41.101A - Unspecified open wound of right upper arm, initial encounter Code(s): S41.101A - Unspecified open wound of right upper arm, initial encounter (3) Delayed wound healing Status: Chronic Current Visit: Yes Code(s): T14.8XXD - Other injury of unspecified body region, subsequent encounter Type of Wound Date of Service: 07/15/17 Chief Complaint: Right leg ulcer History of Wound: Mr Montalvo is a 77yo who also currently sees Dr. Castro for lower extremity ulcers. I was asked to see him for a non healing right upper extremity wound. Initially noted just over a month ago while in the hospital. He is unclear about the exact precipitating event but noted a blister beside an IV line which was subsequently incised about a week later while in the half-way. Per patient, no significant drainage was noted after it was incised. He has been applying a dressing daily however, he is unsure of the name. This is not caused any significant change in the wound. He denies worsening or increasing pain at the wound site. He feels well and denies any other compliants at this time. Progress of Wound: Stable. - Physical Exam Vital Signs Temp Pulse Resp BP 98.9 F 102 H 20 H 138/96 H 07/15/17 10:13 07/15/17 10:13 07/15/17 10:13 07/15/17 10:13 General: Alert, Oriented x3, Cooperative, No apparent distress HEENT: Atraumatic, Normocephalic Oral: Moist Mucosa Neck: Supple Lungs: Normal air movement Cardiovascular: Regular rate Skin: Ulcer/ Wound Wound Measurements and Assessment WC - Nurse 1 - General Ulcer Measurement Start: 07/15/17 10:13 Freq: Status: Active Protocol: Activity Type Activity Date Activity User E-Sign Co-Sign Detail Recorded Client Recorded Date Recorded By Document 07/15/17 10:13 DL [id number] 07/15/17 10:23 DL 07/15/17 10:13 Wound Center Nurse 1 [Ulcer Assessment] #2- RFA -Current Size (cm) - Length 2.2 -Current Size (cm) - Width 1.8 -Current Size (cm) - Depth 0.1 -Total Square Cm 3.96 -Photo Taken No -Exudate Amt Small (1-33%) -Exudate Type Serosanguineous -Wound Margin Distinct, Outline Attached -Granulation Amt Medium (34-66%) -Granulation Quality Red -Necrosis Amt Medium (34-66%) -Necrotic Tissue Type Adherent Slough -Structure Exposed N/A -Texture (Ro-wound Skin Appearance) Scarring -Moisture (Ro-wound Skin Appearance No Abnormality ) -Color (Ro-wound Skin Appearance) Erythema Rubor -Temperature (Ro-wound Skin No Abnormality Appearance) (Pt Warm) -Ulcer Cleansing Wound Cleanser -Foul Odor after Cleansing No -Anesthetic Used 4% Lidocaine Solution [Edema Assessment] -Right Calf (cm) 32.2 -Right Ankle (cm) 20.5 WC - Nurse 2 - General Ulcer CM Notes Start: 07/15/17 10:13 Freq: Status: Active Protocol: Activity Type Activity Date Activity User E-Sign Co-Sign Detail Recorded Client Recorded Date Recorded By Document 07/15/17 10:41 TM [id number] 07/15/17 10:44 TM Document 07/15/17 11:10 DV [id number] 07/15/17 11:14 DV 07/15/17 07/15/17 10:41 11:10 Wound Center Nurse 2 [Procedure/Treatment] #2- RFA -Time 11:10 -Correct Patient Yes -Correct Side, Site, Position Yes -Correct Procedure Yes -Procedure Performed Yes -Type of Procedure Debridement -Clinical Debridement Subcutaneous -Post Debridement Size (cm) - Length 2.0 -Post Debridement Size (cm) - Width 2.0 -Post Debridement Size (cm) - Depth 0.2 -Total Square Cm 4.00 -Wound/Ulcer Outcome Not Healed -Ulcer Cleansing Rinsed/ Irrigated with Saline -Foul Odor after Cleansing No -Bioengineered Tissue No -Bleeding Controlled with Pressure -Treatment Response Procedure Tolerated Well #1 R [place] -Time 10:43 -Correct Patient Yes -Correct Side, Site, Position Yes -Correct Procedure Yes -Procedure Performed Yes -Post Debridement Size (cm) - Length 0 -Post Debridement Size (cm) - Width 0 -Post Debridement Size (cm) - Depth 0 -Total Square Cm 0 -Wound/Ulcer Outcome Healed- Epithelialized -Ulcer Cleansing Rinsed/ Irrigated with Saline -Foul Odor after Cleansing No -Bioengineered Tissue No -Bleeding Controlled with NA -Treatment Response Procedure Tolerated Well [See Physician Procedure note for Specifics] Pain Scale: 0-10 Numeric [Pain] -Is Patient Pain Free? Yes Yes Musculoskeletal: No Muscle Wasting Neurological: Cranial nerves II-XII grossly intact Psych/Mental Status: Normal Affect Debridement Note Post-Debridement Measurements/Treatment WC - Nurse 2 - General Ulcer CM Notes Start: 07/15/17 10:13 Freq: Status: Active Protocol: Activity Type Activity Date Activity User E-Sign Co-Sign Detail Recorded Client Recorded Date Recorded By Document 07/15/17 10:41 TM [id number] 07/15/17 10:44 TM Document 07/15/17 11:10 DV [id number] 07/15/17 11:14 DV 07/15/17 07/15/17 10:41 11:10 Wound Center Nurse 2 #2- RFA -Time 11:10 -Correct Patient Yes -Correct Side, Site, Position Yes -Correct Procedure Yes -Procedure Performed Yes -Type of Procedure Debridement -Clinical Debridement Subcutaneous -Post Debridement Size (cm) - Length 2.0 -Post Debridement Size (cm) - Width 2.0 -Post Debridement Size (cm) - Depth 0.2 -Total Square Cm 4.00 -Wound/Ulcer Outcome Not Healed -Ulcer Cleansing Rinsed/ Irrigated with Saline -Foul Odor after Cleansing No -Bioengineered Tissue No -Bleeding Controlled with Pressure -Treatment Response Procedure Tolerated Well #1 R [place] Cluster -Time 10:43 -Correct Patient Yes -Correct Side, Site, Position Yes -Correct Procedure Yes -Procedure Performed Yes -Post Debridement Size (cm) - Length 0 -Post Debridement Size (cm) - Width 0 -Post Debridement Size (cm) - Depth 0 -Total Square Cm 0 -Wound/Ulcer Outcome Healed- Epithelialized -Ulcer Cleansing Rinsed/ Irrigated with Saline -Foul Odor after Cleansing No -Bioengineered Tissue No -Bleeding Controlled with NA -Treatment Response Procedure Tolerated Well Pain Scale: 0-10 Numeric Is Patient Pain Free? Yes Yes Wound debrided: Right Forearm wound Wound Grade/Stage: Stage II Type of Debridement: Excisional debridement Anesthesia Used: 4% Lidocaine Solution Depth: Down to and including healthy tissue, in the subcutaneous layer Percentage of wound debrided: 100 Instrument Used: 7mm curette Tissue Removed: Slough and Devitalized tissue Severity: Fat Layer Exposed Amount of bleeding with debridement: Mild Bleeding Controlled with: Pressure Patient tolerated procedure well Assessment/Plan Active Problems Venous insufficiency (Chronic) Type 2 diabetes mellitus with diabetic polyneuropathy (Chronic) Delayed wound healing (Chronic) Open wound of right upper extremity (Acute) Assessment: right leg ulcer with fat layer exposed. leg edema. venous insufficiency with planned intervention. ruled out peripheral vascular disease. diabetes with neurapathy. malnutrition suspected. Right Forearm Wound with Fat Layer Exposed ( Sees Dr. Quintero ). xerosis lower extremities Plan: Right forearm ulcer/wound appears sleeping room cleaner today with less slough burden. More granulation tissue now obvious. Central area of Eschar reducing. Debridement done as documented above, procedure was well-tolerated. Continue Santyl with nickel thick application daily and Adaptic over top. Continue increased protein intake. Follow-up in 2 weeks. Advised to call the wound center with any complaints or concerns. Patient expressed understanding. This note was generated with [employer] software. It may contain incorrect words, spelling, and punctuation that were not noted in checking the note before signing.
--- NOTE | 2017-07-15 19:18 | PN.PCM_ITS ---
(1) Type 2 diabetes mellitus with diabetic polyneuropathy Status: Chronic Current Visit: Yes Code(s): E11.42 - Type 2 diabetes mellitus with diabetic polyneuropathy (2) Open wound of right upper extremity Status: Acute Current Visit: Yes Qualifiers: Encounter type: initial encounter Qualified Code(s): S41.101A - Unspecified open wound of right upper arm, initial encounter Code(s): S41.101A - Unspecified open wound of right upper arm, initial encounter (3) Delayed wound healing Status: Chronic Current Visit: Yes Code(s): T14.8XXD - Other injury of unspecified body region, subsequent encounter Type of Wound Date of Service: 07/15/17 Chief Complaint: Right leg ulcer History of Wound: Mr Montalvo is a 77yo who also currently sees Dr. Castro for lower extremity ulcers. I was asked to see him for a non healing right upper extremity wound. Initially noted just over a month ago while in the hospital. He is unclear about the exact precipitating event but noted a blister beside an IV line which was subsequently incised about a week later while in the skilled nursing. Per patient, no significant drainage was noted after it was incised. He has been applying a dressing daily however, he is unsure of the name. This is not caused any significant change in the wound. He denies worsening or increasing pain at the wound site. He feels well and denies any other compliants at this time. Progress of Wound: Stable. - Physical Exam Vital Signs Temp Pulse Resp BP 98.9 F 102 H 20 H 138/96 H 07/15/17 10:13 07/15/17 10:13 07/15/17 10:13 07/15/17 10:13 General: Alert, Oriented x3, Cooperative, No apparent distress HEENT: Atraumatic, Normocephalic Oral: Moist Mucosa Neck: Supple Lungs: Normal air movement Cardiovascular: Regular rate Skin: Ulcer/ Wound Wound Measurements and Assessment WC - Nurse 1 - General Ulcer Measurement Start: 07/15/17 10:13 Freq: Status: Active Protocol: Activity Type Activity Date Activity User E-Sign Co-Sign Detail Recorded Client Recorded Date Recorded By Document 07/15/17 10:13 DL [id number] 07/15/17 10:23 DL 07/15/17 10:13 Wound Center Nurse 1 [Ulcer Assessment] #2- RFA -Current Size (cm) - Length 2.2 -Current Size (cm) - Width 1.8 -Current Size (cm) - Depth 0.1 -Total Square Cm 3.96 -Photo Taken No -Exudate Amt Small (1-33%) -Exudate Type Serosanguineous -Wound Margin Distinct, Outline Attached -Granulation Amt Medium (34-66%) -Granulation Quality Red -Necrosis Amt Medium (34-66%) -Necrotic Tissue Type Adherent Slough -Structure Exposed N/A -Texture (Ro-wound Skin Appearance) Scarring -Moisture (Ro-wound Skin Appearance No Abnormality ) -Color (Ro-wound Skin Appearance) Erythema Rubor -Temperature (Ro-wound Skin No Abnormality Appearance) (Pt Warm) -Ulcer Cleansing Wound Cleanser -Foul Odor after Cleansing No -Anesthetic Used 4% Lidocaine Solution [Edema Assessment] -Right Calf (cm) 32.2 -Right Ankle (cm) 20.5 WC - Nurse 2 - General Ulcer CM Notes Start: 07/15/17 10:13 Freq: Status: Active Protocol: Activity Type Activity Date Activity User E-Sign Co-Sign Detail Recorded Client Recorded Date Recorded By Document 07/15/17 10:41 TM [id number] 07/15/17 10:44 TM Document 07/15/17 11:10 DV [id number] 07/15/17 11:14 DV 07/15/17 07/15/17 10:41 11:10 Wound Center Nurse 2 [Procedure/Treatment] #2- RFA -Time 11:10 -Correct Patient Yes -Correct Side, Site, Position Yes -Correct Procedure Yes -Procedure Performed Yes -Type of Procedure Debridement -Clinical Debridement Subcutaneous -Post Debridement Size (cm) - Length 2.0 -Post Debridement Size (cm) - Width 2.0 -Post Debridement Size (cm) - Depth 0.2 -Total Square Cm 4.00 -Wound/Ulcer Outcome Not Healed -Ulcer Cleansing Rinsed/ Irrigated with Saline -Foul Odor after Cleansing No -Bioengineered Tissue No -Bleeding Controlled with Pressure -Treatment Response Procedure Tolerated Well #1 R [place] -Time 10:43 -Correct Patient Yes -Correct Side, Site, Position Yes -Correct Procedure Yes -Procedure Performed Yes -Post Debridement Size (cm) - Length 0 -Post Debridement Size (cm) - Width 0 -Post Debridement Size (cm) - Depth 0 -Total Square Cm 0 -Wound/Ulcer Outcome Healed- Epithelialized -Ulcer Cleansing Rinsed/ Irrigated with Saline -Foul Odor after Cleansing No -Bioengineered Tissue No -Bleeding Controlled with NA -Treatment Response Procedure Tolerated Well [See Physician Procedure note for Specifics] Pain Scale: 0-10 Numeric [Pain] -Is Patient Pain Free? Yes Yes Musculoskeletal: No Muscle Wasting Neurological: Cranial nerves II-XII grossly intact Psych/Mental Status: Normal Affect Debridement Note Post-Debridement Measurements/Treatment WC - Nurse 2 - General Ulcer CM Notes Start: 07/15/17 10:13 Freq: Status: Active Protocol: Activity Type Activity Date Activity User E-Sign Co-Sign Detail Recorded Client Recorded Date Recorded By Document 07/15/17 10:41 TM [id number] 07/15/17 10:44 TM Document 07/15/17 11:10 DV [id number] 07/15/17 11:14 DV 07/15/17 07/15/17 10:41 11:10 Wound Center Nurse 2 #2- RFA -Time 11:10 -Correct Patient Yes -Correct Side, Site, Position Yes -Correct Procedure Yes -Procedure Performed Yes -Type of Procedure Debridement -Clinical Debridement Subcutaneous -Post Debridement Size (cm) - Length 2.0 -Post Debridement Size (cm) - Width 2.0 -Post Debridement Size (cm) - Depth 0.2 -Total Square Cm 4.00 -Wound/Ulcer Outcome Not Healed -Ulcer Cleansing Rinsed/ Irrigated with Saline -Foul Odor after Cleansing No -Bioengineered Tissue No -Bleeding Controlled with Pressure -Treatment Response Procedure Tolerated Well #1 R [place] Cluster -Time 10:43 -Correct Patient Yes -Correct Side, Site, Position Yes -Correct Procedure Yes -Procedure Performed Yes -Post Debridement Size (cm) - Length 0 -Post Debridement Size (cm) - Width 0 -Post Debridement Size (cm) - Depth 0 -Total Square Cm 0 -Wound/Ulcer Outcome Healed- Epithelialized -Ulcer Cleansing Rinsed/ Irrigated with Saline -Foul Odor after Cleansing No -Bioengineered Tissue No -Bleeding Controlled with NA -Treatment Response Procedure Tolerated Well Pain Scale: 0-10 Numeric Is Patient Pain Free? Yes Yes Wound debrided: Right Forearm wound Wound Grade/Stage: Stage II Type of Debridement: Excisional debridement Anesthesia Used: 4% Lidocaine Solution Depth: Down to and including healthy tissue, in the subcutaneous layer Percentage of wound debrided: 100 Instrument Used: 7mm curette Tissue Removed: Slough and Devitalized tissue Severity: Fat Layer Exposed Amount of bleeding with debridement: Mild Bleeding Controlled with: Pressure Patient tolerated procedure well Assessment/Plan Active Problems Venous insufficiency (Chronic) Type 2 diabetes mellitus with diabetic polyneuropathy (Chronic) Delayed wound healing (Chronic) Open wound of right upper extremity (Acute) Assessment: right leg ulcer with fat layer exposed. leg edema. venous insufficiency with planned intervention. ruled out peripheral vascular disease. diabetes with neurapathy. malnutrition suspected. Right Forearm Wound with Fat Layer Exposed ( Sees Dr. Quintero ). 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 More granulation tissue now obvious. Central area of Eschar reducing. Debridement done as documented above, procedure was well-tolerated. Continue Santyl with nickel thick application daily and Adaptic over top. Continue increased protein intake. Follow-up in 2 weeks. Advised to call the wound center with any complaints or concerns. Patient expressed understanding. This note was generated with [employer] software. It may contain incorrect words, spelling, and punctuation that were not noted in checking the note before signing.
[2017-07-30 12:16] VITALS: BP 143/85; PULSE 71; RESP 16; TEMP 36.6
--- NOTE | 2017-07-30 13:06 | PCM.WC.PN ---
(1) Type 2 diabetes mellitus with diabetic polyneuropathy Status: Chronic Current Visit: Yes Code(s): E11.42 - Type 2 diabetes mellitus with diabetic polyneuropathy (2) Open wound of right upper extremity Status: Acute Current Visit: Yes Qualifiers: Encounter type: initial encounter Qualified Code(s): S41.101A - Unspecified open wound of right upper arm, initial encounter Code(s): S41.101A - Unspecified open wound of right upper arm, initial encounter (3) Delayed wound healing Status: Chronic Current Visit: Yes Code(s): T14.8XXD - Other injury of unspecified body region, subsequent encounter Type of Wound Date of Service: 07/30/17 Chief Complaint: Right leg ulcer History of Wound: Mr Montalvo is a 77yo who also currently sees Dr. Castro for lower extremity ulcers. I was asked to see him for a non healing right upper extremity wound. Initially noted just over a month ago while in the hospital. He is unclear about the exact precipitating event but noted a blister beside an IV line which was subsequently incised about a week later while in the group home. Per patient, no significant drainage was noted after it was incised. He has been applying a dressing daily however, he is unsure of the name. This is not caused any significant change in the wound. He denies worsening or increasing pain at the wound site. He feels well and denies any other compliants at this time. Progress of Wound: Improving. - Physical Exam Vital Signs Temp Pulse Resp BP 97.8 F 71 16 143/85 H 07/30/17 12:16 07/30/17 12:16 07/30/17 12:16 07/30/17 12:16 General: Alert, Oriented x3, Cooperative, No apparent distress HEENT: Atraumatic, Normocephalic Oral: Moist Mucosa Neck: Supple Lungs: Normal air movement Cardiovascular: Regular rate Extremities: No cyanosis Skin: Ulcer/ Wound Wound Measurements and Assessment WC - Nurse 1 - General Ulcer Measurement Start: 07/15/17 10:13 Freq: Status: Active Protocol: Activity Type Activity Date Activity User E-Sign Co-Sign Detail Recorded Client Recorded Date Recorded By Document 07/30/17 12:16 [facility] [id number] 07/30/17 12:22 [facility] 07/30/17 12:16 Wound Center Nurse 1 [Ulcer Assessment] #2- RFA -Combined with other wound No -Current Size (cm) - Length 1.4 -Current Size (cm) - Width 1.6 -Current Size (cm) - Depth 0.1 -Total Square Cm 2.24 -Photo Taken No -Epithelialization Small 1-33% -Tunneling No -Undermining/Tunneling No -Circular Undermining No -Exudate Amt Small (1-33%) -Exudate Type Serous -Wound Margin Distinct, Outline Attached -Granulation Amt Large (67-100%) -Granulation Quality Red -Slough/Fibrin Yes -Necrosis Amt Small (1-33%) -Necrotic Tissue Type Eschar -Structure Exposed None/Limited to Skin Breakdown -Texture (Ro-wound Skin Appearance) Scarring -Moisture (Ro-wound Skin Appearance No Abnormality ) Assessed -Color (Ro-wound Skin Appearance) Assessed Erythema -Temperature (Ro-wound Skin No Abnormality Appearance) (Pt Warm) -Tenderness on Palpation (Ro-wound No Skin Appearance) -Ulcer Cleansing Rinsed/ Irrigated with Saline -Foul Odor after Cleansing No -Anesthetic Used 5% Lidocaine Gel - Nurse 2 - General Ulcer CM Notes Start: 07/15/17 10:13 Freq: Status: Active Protocol: Activity Type Activity Date Activity User E-Sign Co-Sign Detail Recorded Client Recorded Date Recorded By Document 07/30/17 12:31 DV [id number] 07/30/17 12:33 DV 07/30/17 12:31 Wound Center Nurse 2 [Procedure/Treatment] -Time 12:31 -Correct Patient Yes -Correct Side, Site, Position Yes -Correct Procedure Yes -Procedure Performed Yes -Type of Procedure Debridement -Clinical Debridement Subcutaneous -Post Debridement Size (cm) - Length 1.5 -Post Debridement Size (cm) - Width 1.6 -Post Debridement Size (cm) - Depth 0.2 -Total Square Cm 2.40 -Wound/Ulcer Outcome Not Healed -Ulcer Cleansing Rinsed/ Irrigated with Saline -Foul Odor after Cleansing No -Bioengineered Tissue No -Bleeding Controlled with Pressure -Treatment Response Procedure Tolerated Well [See Physician Procedure note for Specifics] Pain Scale: 0-10 Numeric [Pain] -Is Patient Pain Free? Yes Musculoskeletal: No Muscle Wasting Neurological: Cranial nerves II-XII grossly intact Psych/Mental Status: Normal Affect Debridement Note Post-Debridement Measurements/Treatment - Nurse 2 - General Ulcer CM Notes Start: 07/15/17 10:13 Freq: Status: Active Protocol: Activity Type Activity Date Activity User E-Sign Co-Sign Detail Recorded Client Recorded Date Recorded By Document 07/15/17 10:41 TM [id number] 07/15/17 10:44 TM Document 07/15/17 11:10 DV [id number] 07/15/17 11:14 DV Document 07/30/17 12:31 DV [id number] 07/30/17 12:33 DV 07/15/17 07/15/17 07/30/17 10:41 11:10 12:31 Wound Center Nurse 2 #2- RFA -Time 11:10 12:31 -Correct Patient Yes Yes -Correct Side, Site, Position Yes Yes -Correct Procedure Yes Yes -Procedure Performed Yes Yes -Type of Procedure Debridement Debridement -Clinical Debridement Subcutaneous Subcutaneous -Post Debridement Size (cm) - Length 2.0 1.5 -Post Debridement Size (cm) - Width 2.0 1.6 -Post Debridement Size (cm) - Depth 0.2 0.2 -Total Square Cm 4.00 2.40 -Wound/Ulcer Outcome Not Healed Not Healed -Ulcer Cleansing Rinsed/ Rinsed/ Irrigated with Irrigated with Saline Saline -Foul Odor after Cleansing No No -Bioengineered Tissue No No -Bleeding Controlled with Pressure Pressure -Treatment Response Procedure Procedure Tolerated Well Tolerated Well #1 R [place] Cluster -Time 10:43 -Correct Patient Yes -Correct Side, Site, Position Yes -Correct Procedure Yes -Procedure Performed Yes -Post Debridement Size (cm) - Length 0 -Post Debridement Size (cm) - Width 0 -Post Debridement Size (cm) - Depth 0 -Total Square Cm 0 -Wound/Ulcer Outcome Healed- Epithelialized -Ulcer Cleansing Rinsed/ Irrigated with Saline -Foul Odor after Cleansing No -Bioengineered Tissue No -Bleeding Controlled with NA -Treatment Response Procedure Tolerated Well Pain Scale: 0-10 Numeric Is Patient Pain Free? Yes Yes Yes Wound debrided: Right Forearm ulcer Wound Grade/Stage: Stage II Type of Debridement: Excisional debridement Anesthesia Used: 4% Lidocaine Solution Depth: Down to and including healthy tissue, in the subcutaneous layer Percentage of wound debrided: 100 Instrument Used: 5mm curette Tissue Removed: Slough and Devitalized tissue Severity: Fat Layer Exposed Amount of bleeding with debridement: Mild Bleeding Controlled with: Pressure Patient tolerated procedure well Assessment/Plan Active Problems Venous insufficiency (Chronic) Type 2 diabetes mellitus with diabetic polyneuropathy (Chronic) Delayed wound healing (Chronic) Open wound of right upper extremity (Acute) Assessment: right leg ulcer -healed. leg edema. venous insufficiency with planned intervention. ruled out peripheral vascular disease. diabetes with neurapathy. malnutrition suspected. Right Forearm Wound with Fat Layer Exposed ( Sees Dr. Quintero ). xerosis lower extremities Plan: Right forearm ulcer/wound continues to show good improvement with more granulation tissue formation.Debridement done as documented above, procedure was well-tolerated. Will switch to Buffy daily with adaptic overtop. Continue increased protein intake. Follow-up in 1 week. This note was generated with [employer]ation software. It may contain incorrect words, spelling, and punctuation that were not noted in checking the note before signing.
--- NOTE | 2017-07-30 13:12 | PN.PCM_ITS ---
(1) Type 2 diabetes mellitus with diabetic polyneuropathy Status: Chronic Current Visit: Yes Code(s): E11.42 - Type 2 diabetes mellitus with diabetic polyneuropathy (2) Open wound of right upper extremity Status: Acute Current Visit: Yes Qualifiers: Encounter type: initial encounter Qualified Code(s): S41.101A - Unspecified open wound of right upper arm, initial encounter Code(s): S41.101A - Unspecified open wound of right upper arm, initial encounter (3) Delayed wound healing Status: Chronic Current Visit: Yes Code(s): T14.8XXD - Other injury of unspecified body region, subsequent encounter Type of Wound Date of Service: 07/30/17 Chief Complaint: Right leg ulcer History of Wound: Mr Montalvo is a 77yo who also currently sees Dr. Castro for lower extremity ulcers. I was asked to see him for a non healing right upper extremity wound. Initially noted just over a month ago while in the hospital. He is unclear about the exact precipitating event but noted a blister beside an IV line which was subsequently incised about a week later while in the senior care. Per patient, no significant drainage was noted after it was incised. He has been applying a dressing daily however, he is unsure of the name. This is not caused any significant change in the wound. He denies worsening or increasing pain at the wound site. He feels well and denies any other compliants at this time. Progress of Wound: Improving. - Physical Exam Vital Signs Temp Pulse Resp BP 97.8 F 71 16 143/85 H 07/30/17 12:16 07/30/17 12:16 07/30/17 12:16 07/30/17 12:16 General: Alert, Oriented x3, Cooperative, No apparent distress HEENT: Atraumatic, Normocephalic Oral: Moist Mucosa Neck: Supple Lungs: Normal air movement Cardiovascular: Regular rate Extremities: No cyanosis Skin: Ulcer/ Wound Wound Measurements and Assessment WC - Nurse 1 - General Ulcer Measurement Start: 07/15/17 10:13 Freq: Status: Active Protocol: Activity Type Activity Date Activity User E-Sign Co-Sign Detail Recorded Client Recorded Date Recorded By Document 07/30/17 12:16 [facility] [id number] 07/30/17 12:22 [facility] 07/30/17 12:16 Wound Center Nurse 1 [Ulcer Assessment] #2- RFA -Combined with other wound No -Current Size (cm) - Length 1.4 -Current Size (cm) - Width 1.6 -Current Size (cm) - Depth 0.1 -Total Square Cm 2.24 -Photo Taken No -Epithelialization Small 1-33% -Tunneling No -Undermining/Tunneling No -Circular Undermining No -Exudate Amt Small (1-33%) -Exudate Type Serous -Wound Margin Distinct, Outline Attached -Granulation Amt Large (67-100%) -Granulation Quality Red -Slough/Fibrin Yes -Necrosis Amt Small (1-33%) -Necrotic Tissue Type Eschar -Structure Exposed None/Limited to Skin Breakdown -Texture (Ro-wound Skin Appearance) Scarring -Moisture (Ro-wound Skin Appearance No Abnormality ) Assessed -Color (Ro-wound Skin Appearance) Assessed Erythema -Temperature (Ro-wound Skin No Abnormality Appearance) (Pt Warm) -Tenderness on Palpation (Ro-wound No Skin Appearance) -Ulcer Cleansing Rinsed/ Irrigated with Saline -Foul Odor after Cleansing No -Anesthetic Used 5% Lidocaine Gel - Nurse 2 - General Ulcer CM Notes Start: 07/15/17 10:13 Freq: Status: Active Protocol: Activity Type Activity Date Activity User E-Sign Co-Sign Detail Recorded Client Recorded Date Recorded By Document 07/30/17 12:31 DV [id number] 07/30/17 12:33 DV 07/30/17 12:31 Wound Center Nurse 2 [Procedure/Treatment] -Time 12:31 -Correct Patient Yes -Correct Side, Site, Position Yes -Correct Procedure Yes -Procedure Performed Yes -Type of Procedure Debridement -Clinical Debridement Subcutaneous -Post Debridement Size (cm) - Length 1.5 -Post Debridement Size (cm) - Width 1.6 -Post Debridement Size (cm) - Depth 0.2 -Total Square Cm 2.40 -Wound/Ulcer Outcome Not Healed -Ulcer Cleansing Rinsed/ Irrigated with Saline -Foul Odor after Cleansing No -Bioengineered Tissue No -Bleeding Controlled with Pressure -Treatment Response Procedure Tolerated Well [See Physician Procedure note for Specifics] Pain Scale: 0-10 Numeric [Pain] -Is Patient Pain Free? Yes Musculoskeletal: No Muscle Wasting Neurological: Cranial nerves II-XII grossly intact Psych/Mental Status: Normal Affect Debridement Note Post-Debridement Measurements/Treatment - Nurse 2 - General Ulcer CM Notes Start: 07/15/17 10:13 Freq: Status: Active Protocol: Activity Type Activity Date Activity User E-Sign Co-Sign Detail Recorded Client Recorded Date Recorded By Document 07/15/17 10:41 TM [id number] 07/15/17 10:44 TM Document 07/15/17 11:10 DV [id number] 07/15/17 11:14 DV Document 07/30/17 12:31 DV [id number] 07/30/17 12:33 DV 07/15/17 07/15/17 07/30/17 10:41 11:10 12:31 Wound Center Nurse 2 #2- RFA -Time 11:10 12:31 -Correct Patient Yes Yes -Correct Side, Site, Position Yes Yes -Correct Procedure Yes Yes -Procedure Performed Yes Yes -Type of Procedure Debridement Debridement -Clinical Debridement Subcutaneous Subcutaneous -Post Debridement Size (cm) - Length 2.0 1.5 -Post Debridement Size (cm) - Width 2.0 1.6 -Post Debridement Size (cm) - Depth 0.2 0.2 -Total Square Cm 4.00 2.40 -Wound/Ulcer Outcome Not Healed Not Healed -Ulcer Cleansing Rinsed/ Rinsed/ Irrigated with Irrigated with Saline Saline -Foul Odor after Cleansing No No -Bioengineered Tissue No No -Bleeding Controlled with Pressure Pressure -Treatment Response Procedure Procedure Tolerated Well Tolerated Well #1 R [place] -Time 10:43 -Correct Patient Yes -Correct Side, Site, Position Yes -Correct Procedure Yes -Procedure Performed Yes -Post Debridement Size (cm) - Length 0 -Post Debridement Size (cm) - Width 0 -Post Debridement Size (cm) - Depth 0 -Total Square Cm 0 -Wound/Ulcer Outcome Healed- Epithelialized -Ulcer Cleansing Rinsed/ Irrigated with Saline -Foul Odor after Cleansing No -Bioengineered Tissue No -Bleeding Controlled with NA -Treatment Response Procedure Tolerated Well Pain Scale: 0-10 Numeric Is Patient Pain Free? Yes Yes Yes Wound debrided: Right Forearm ulcer Wound Grade/Stage: Stage II Type of Debridement: Excisional debridement Anesthesia Used: 4% Lidocaine Solution Depth: Down to and including healthy tissue, in the subcutaneous layer Percentage of wound debrided: 100 Instrument Used: 5mm curette Tissue Removed: Slough and Devitalized tissue Severity: Fat Layer Exposed Amount of bleeding with debridement: Mild Bleeding Controlled with: Pressure Patient tolerated procedure well Assessment/Plan Active Problems Venous insufficiency (Chronic) Type 2 diabetes mellitus with diabetic polyneuropathy (Chronic) Delayed wound healing (Chronic) Open wound of right upper extremity (Acute) Assessment: right leg ulcer -healed. leg edema. venous insufficiency with planned intervention. ruled out peripheral vascular disease. diabetes with neurapathy. malnutrition suspected. Right Forearm Wound with Fat Layer Exposed ( Sees Dr. Quintero ). xerosis lower extremities Plan: Right forearm ulcer/wound continues to show good improvement with more granulation tissue formation.Debridement done as documented above, procedure was well-tolerated. Will switch to Buffy daily with adaptic overtop. Continue increased protein intake. Follow-up in 1 week. This note was generated with [employer] dictation software. It may contain incorrect words, spelling, and punctuation that were not noted in checking the note before signing.
[2017-08-05 10:00] VITALS: BP 156/98; PULSE 89; RESP 16; TEMP 36.7
--- NOTE | 2017-08-05 14:36 | PCM.WC.PN ---
(1) Type 2 diabetes mellitus with diabetic polyneuropathy Status: Chronic Current Visit: Yes Code(s): E11.42 - Type 2 diabetes mellitus with diabetic polyneuropathy (2) Open wound of right upper extremity Status: Acute Current Visit: Yes Qualifiers: Encounter type: initial encounter Qualified Code(s): S41.101A - Unspecified open wound of right upper arm, initial encounter Code(s): S41.101A - Unspecified open wound of right upper arm, initial encounter (3) Delayed wound healing Status: Chronic Current Visit: Yes Code(s): T14.8XXD - Other injury of unspecified body region, subsequent encounter Type of Wound Date of Service: 08/05/17 Chief Complaint: Right leg ulcer History of Wound: Mr Montalvo is a 77yo who also currently sees Dr. Castro for lower extremity ulcers. I was asked to see him for a non healing right upper extremity wound. Initially noted just over a month ago while in the hospital. He is unclear about the exact precipitating event but noted a blister beside an IV line which was subsequently inc[facility] a [facility] Per patient, no significant drainage was noted after it was incised. He has been applying a dressing daily however, he is unsure of the name. This is not caused any significant change in the wound. He denies worsening or increasing pain at the wound site. He feels well and denies any other compliants at this time. Progress of Wound: Improving. - Physical Exam Vital Signs Temp Pulse Resp BP 98.0 F 89 16 156/98 H 08/05/17 10:00 08/05/17 10:00 08/05/17 10:00 08/05/17 10:00 General: Alert, Oriented x3, Cooperative, No apparent distress HEENT: Atraumatic, Normocephalic Oral: Moist Mucosa Neck: Supple Lungs: Normal air movement Cardiovascular: Regular rate Extremities: No cyanosis Skin: Ulcer/ Wound Wound Measurements and Assessment WC - Nurse 1 - General Ulcer Measurement Start: 07/15/17 10:13 Freq: Status: Active Protocol: Activity Type Activity Date Activity User E-Sign Co-Sign Detail Recorded Client Recorded Date Recorded By Document 08/05/17 10:00 MW [id number] 08/05/17 10:05 MW 08/05/17 10:00 Wound Center Nurse 1 [Ulcer Assessment] #2- RFA -Combined with other wound No -Current Size (cm) - Length 1.5 -Current Size (cm) - Width 1.4 -Current Size (cm) - Depth 0.1 -Total Square Cm 2.10 -Date of Last Picture (Recall this 08/05/17 field) -Photo Taken Yes -Epithelialization None Present -Tunneling No -Undermining/Tunneling No -Circular Undermining No -Exudate Amt Small (1-33%) -Exudate Type Serosanguineous -Wound Margin Distinct, Outline Attached -Granulation Amt Medium (34-66%) -Granulation Quality [place] -Slough/Fibrin Yes -Necrosis Amt Small (1-33%) -Necrotic Tissue Type Adherent Slough -Structure Exposed N/A -Texture (Ro-wound Skin Appearance) Assessed Localized Edema Scarring -Moisture (Ro-wound Skin Appearance Assessed ) -Color (Ro-wound Skin Appearance) Assessed Erythema -Temperature (Ro-wound Skin No Abnormality Appearance) (Pt Warm) -Tenderness on Palpation (Ro-wound No Skin Appearance) -Ulcer Cleansing Rinsed/ Irrigated with Saline -Foul Odor after Cleansing No -Anesthetic Used 5% Lidocaine Gel [Edema Assessment] -Lower Limb Edema Present No WC - Nurse 2 - General Ulcer CM Notes Start: 07/15/17 10:13 Freq: Status: Active Protocol: Activity Type Activity Date Activity User E-Sign Co-Sign Detail Recorded Client Recorded Date Recorded By Document 08/05/17 11:01 DV [id number] 08/05/17 11:04 DV 08/05/17 11:01 Wound Center Nurse 2 [Procedure/Treatment] #2- RFA -Time 11:02 -Correct Patient Yes -Correct Side, Site, Position Yes -Correct Procedure Yes -Procedure Performed Yes -Type of Procedure Debridement -Clinical Debridement Subcutaneous -Post Debridement Size (cm) - Length 1.2 -Post Debridement Size (cm) - Width 1.4 -Post Debridement Size (cm) - Depth 0.1 -Total Square Cm 1.68 -Wound/Ulcer Outcome Not Healed -Ulcer Cleansing Rinsed/ Irrigated with Saline -Foul Odor after Cleansing No -Bioengineered Tissue No -Bleeding Controlled with Pressure -Treatment Response Procedure Tolerated Well [See Physician Procedure note for Specifics] Pain Scale: 0-10 Numeric [Pain] -Is Patient Pain Free? Yes Musculoskeletal: No Muscle Wasting Neurological: Cranial nerves II-XII grossly intact Psych/Mental Status: Normal Affect Debridement Note Post-Debridement Measurements/Treatment WC - Nurse 2 - General Ulcer CM Notes Start: 07/15/17 10:13 Freq: Status: Active Protocol: Activity Type Activity Date Activity User E-Sign Co-Sign Detail Recorded Client Recorded Date Recorded By Document 07/15/17 10:41 TM [id number] 07/15/17 10:44 TM Document 07/15/17 11:10 DV [id number] 07/15/17 11:14 DV Document 07/30/17 12:31 DV [id number] 07/30/17 12:33 DV Document 08/05/17 11:01 DV [id number] 08/05/17 11:04 DV 07/15/17 07/15/17 07/30/17 10:41 11:10 12:31 Wound Center Nurse 2 #2- RFA -Time 11:10 12:31 -Correct Patient Yes Yes -Correct Side, Site, Position Yes Yes -Correct Procedure Yes Yes -Procedure Performed Yes Yes -Type of Procedure Debridement Debridement -Clinical Debridement Subcutaneous Subcutaneous -Post Debridement Size (cm) - Length 2.0 1.5 -Post Debridement Size (cm) - Width 2.0 1.6 -Post Debridement Size (cm) - Depth 0.2 0.2 -Total Square Cm 4.00 2.40 -Wound/Ulcer Outcome Not Healed Not Healed -Ulcer Cleansing Rinsed/ Rinsed/ Irrigated with Irrigated with Saline Saline -Foul Odor after Cleansing No No -Bioengineered Tissue No No -Bleeding Controlled with Pressure Pressure -Treatment Response Procedure Procedure Tolerated Well Tolerated Well #1 R [place] -Time 10:43 -Correct Patient Yes -Correct Side, Site, Position Yes -Correct Procedure Yes -Procedure Performed Yes -Post Debridement Size (cm) - Length 0 -Post Debridement Size (cm) - Width 0 -Post Debridement Size (cm) - Depth 0 -Total Square Cm 0 -Wound/Ulcer Outcome Healed- Epithelialized -Ulcer Cleansing Rinsed/ Irrigated with Saline -Foul Odor after Cleansing No -Bioengineered Tissue No -Bleeding Controlled with NA -Treatment Response Procedure Tolerated Well Pain Scale: 0-10 Numeric Is Patient Pain Free? Yes Yes Yes 08/05/17 11:01 Wound Center Nurse 2 #2- RFA -Time 11:02 -Correct Patient Yes -Correct Side, Site, Position Yes -Correct Procedure Yes -Procedure Performed Yes -Type of Procedure Debridement -Clinical Debridement Subcutaneous -Post Debridement Size (cm) - Length 1.2 -Post Debridement Size (cm) - Width 1.4 -Post Debridement Size (cm) - Depth 0.1 -Total Square Cm 1.68 -Wound/Ulcer Outcome Not Healed -Ulcer Cleansing Rinsed/ Irrigated with Saline -Foul Odor after Cleansing No -Bioengineered Tissue No -Bleeding Controlled with Pressure -Treatment Response Procedure Tolerated Well #1 R [place] -Time -Correct Patient -Correct Side, Site, Position -Correct Procedure -Procedure Performed -Post Debridement Size (cm) - Length -Post Debridement Size (cm) - Width -Post Debridement Size (cm) - Depth -Total Square Cm -Wound/Ulcer Outcome -Ulcer Cleansing -Foul Odor after Cleansing -Bioengineered Tissue -Bleeding Controlled with -Treatment Response Pain Scale: 0-10 Numeric Is Patient Pain Free? Yes Wound debrided: Right Forearm ulcer Wound Grade/Stage: Stage II Type of Debridement: Excisional debridement Anesthesia Used: 5% Lidocaine Gel Depth: Down to and including healthy tissue, in the subcutaneous layer Percentage of wound debrided: 100 Instrument Used: 5mm curette Tissue Removed: Slough and devitalized tissue Severity: Fat Layer Exposed Amount of bleeding with debridement: Mild Bleeding Controlled with: Pressure Patient tolerated procedure well Assessment/Plan Active Problems Venous insufficiency (Chronic) Type 2 diabetes mellitus with diabetic polyneuropathy (Chronic) Delayed wound healing (Chronic) Open wound of right upper extremity (Acute) Assessment: right leg ulcer -healed. leg edema. venous insufficiency with planned intervention. ruled out peripheral vascular disease. diabetes with neurapathy. malnutrition suspected. Right Forearm Wound with Fat Layer Exposed ( Sees Dr. Quintero ). xerosis lower extremities Plan: No significant change in the past week. Minimal reduction in wound circumference. I believe patient will benefit from a skin substituite. Debridement done as documented above, procedure was well-tolerated. Continue Buffy daily with adaptic over top. Continue increased protein intake. Follow-up in 1 week. This note was generated with [employer] software. It may contain incorrect words, spelling, and punctuation that were not noted in checking the note before signing.
--- NOTE | 2017-08-05 14:40 | PN.PCM_ITS ---
(1) Type 2 diabetes mellitus with diabetic polyneuropathy Status: Chronic Current Visit: Yes Code(s): E11.42 - Type 2 diabetes mellitus with diabetic polyneuropathy (2) Open wound of right upper extremity Status: Acute Current Visit: Yes Qualifiers: Encounter type: initial encounter Qualified Code(s): S41.101A - Unspecified open wound of right upper arm, initial encounter Code(s): S41.101A - Unspecified open wound of right upper arm, initial encounter (3) Delayed wound healing Status: Chronic Current Visit: Yes Code(s): T14.8XXD - Other injury of unspecified body region, subsequent encounter Type of Wound Date of Service: 08/05/17 Chief Complaint: Right leg ulcer History of Wound: Mr Montalvo is a 77yo who also currently sees Dr. Castro for lower extremity ulcers. I was asked to see him for a non healing right upper extremity wound. Initially noted just over a month ago while in the hospital. He is unclear about the exact precipitating event but noted a blister beside an IV line which was subsequently incised about a week later while in the [facility]. Per patient, no significant drainage was noted after it was incised. He has been applying a dressing daily however, he is unsure of the name. This is not caused any significant change in the wound. He denies worsening or increasing pain at the wound site. He feels well and denies any other compliants at this time. Progress of Wound: Improving. - Physical Exam Vital Signs Temp Pulse Resp BP 98.0 F 89 16 156/98 H 08/05/17 10:00 08/05/17 10:00 08/05/17 10:00 08/05/17 10:00 General: Alert, Oriented x3, Cooperative, No apparent distress HEENT: Atraumatic, Normocephalic Oral: Moist Mucosa Neck: Supple Lungs: Normal air movement Cardiovascular: Regular rate Extremities: No cyanosis Skin: Ulcer/ Wound Wound Measurements and Assessment WC - Nurse 1 - General Ulcer Measurement Start: 07/15/17 10:13 Freq: Status: Active Protocol: Activity Type Activity Date Activity User E-Sign Co-Sign Detail Recorded Client Recorded Date Recorded By Document 08/05/17 10:00 MW [id number] 08/05/17 10:05 MW 08/05/17 10:00 Wound Center Nurse 1 [Ulcer Assessment] #2- RFA -Combined with other wound No -Current Size (cm) - Length 1.5 -Current Size (cm) - Width 1.4 -Current Size (cm) - Depth 0.1 -Total Square Cm 2.10 -Date of Last Picture (Recall this 08/05/17 field) -Photo Taken Yes -Epithelialization None Present -Tunneling No -Undermining/Tunneling No -Circular Undermining No -Exudate Amt Small (1-33%) -Exudate Type Serosanguineous -Wound Margin Distinct, Outline Attached -Granulation Amt Medium (34-66%) -Granulation Quality [place] -Slough/Fibrin Yes -Necrosis Amt Small (1-33%) -Necrotic Tissue Type Adherent Slough -Structure Exposed N/A -Texture (Ro-wound Skin Appearance) Assessed Localized Edema Scarring -Moisture (Ro-wound Skin Appearance Assessed ) -Color (Ro-wound Skin Appearance) Assessed Erythema -Temperature (Ro-wound Skin No Abnormality Appearance) (Pt Warm) -Tenderness on Palpation (Ro-wound No Skin Appearance) -Ulcer Cleansing Rinsed/ Irrigated with Saline -Foul Odor after Cleansing No -Anesthetic Used 5% Lidocaine Gel [Edema Assessment] -Lower Limb Edema Present No WC - Nurse 2 - General Ulcer CM Notes Start: 07/15/17 10:13 Freq: Status: Active Protocol: Activity Type Activity Date Activity User E-Sign Co-Sign Detail Recorded Client Recorded Date Recorded By Document 08/05/17 11:01 DV [id number] 08/05/17 11:04 DV 08/05/17 11:01 Wound Center Nurse 2 [Procedure/Treatment] #2- RFA -Time 11:02 -Correct Patient Yes -Correct Side, Site, Position Yes -Correct Procedure Yes -Procedure Performed Yes -Type of Procedure Debridement -Clinical Debridement Subcutaneous -Post Debridement Size (cm) - Length 1.2 -Post Debridement Size (cm) - Width 1.4 -Post Debridement Size (cm) - Depth 0.1 -Total Square Cm 1.68 -Wound/Ulcer Outcome Not Healed -Ulcer Cleansing Rinsed/ Irrigated with Saline -Foul Odor after Cleansing No -Bioengineered Tissue No -Bleeding Controlled with Pressure -Treatment Response Procedure Tolerated Well [See Physician Procedure note for Specifics] Pain Scale: 0-10 Numeric [Pain] -Is Patient Pain Free? Yes Musculoskeletal: No Muscle Wasting Neurological: Cranial nerves II-XII grossly intact Psych/Mental Status: Normal Affect Debridement Note Post-Debridement Measurements/Treatment WC - Nurse 2 - General Ulcer CM Notes Start: 07/15/17 10:13 Freq: Status: Active Protocol: Activity Type Activity Date Activity User E-Sign Co-Sign Detail Recorded Client Recorded Date Recorded By Document 07/15/17 10:41 TM [id number] 07/15/17 10:44 TM Document 07/15/17 11:10 DV [id number] 07/15/17 11:14 DV Document 07/30/17 12:31 DV [id number] 07/30/17 12:33 DV Document 08/05/17 11:01 DV [id number] 08/05/17 11:04 DV 07/15/17 07/15/17 07/30/17 10:41 11:10 12:31 Wound Center Nurse 2 #2- RFA -Time 11:10 12:31 -Correct Patient Yes Yes -Correct Side, Site, Position Yes Yes -Correct Procedure Yes Yes -Procedure Performed Yes Yes -Type of Procedure Debridement Debridement -Clinical Debridement Subcutaneous Subcutaneous -Post Debridement Size (cm) - Length 2.0 1.5 -Post Debridement Size (cm) - Width 2.0 1.6 -Post Debridement Size (cm) - Depth 0.2 0.2 -Total Square Cm 4.00 2.40 -Wound/Ulcer Outcome Not Healed Not Healed -Ulcer Cleansing Rinsed/ Rinsed/ Irrigated with Irrigated with Saline Saline -Foul Odor after Cleansing No No -Bioengineered Tissue No No -Bleeding Controlled with Pressure Pressure -Treatment Response Procedure Procedure Tolerated Well Tolerated Well #1 R [place] -Time 10:43 -Correct Patient Yes -Correct Side, Site, Position Yes -Correct Procedure Yes -Procedure Performed Yes -Post Debridement Size (cm) - Length 0 -Post Debridement Size (cm) - Width 0 -Post Debridement Size (cm) - Depth 0 -Total Square Cm 0 -Wound/Ulcer Outcome Healed- Epithelialized -Ulcer Cleansing Rinsed/ Irrigated with Saline -Foul Odor after Cleansing No -Bioengineered Tissue No -Bleeding Controlled with NA -Treatment Response Procedure Tolerated Well Pain Scale: 0-10 Numeric Is Patient Pain Free? Yes Yes Yes 08/05/17 11:01 Wound Center Nurse 2 #2- RFA -Time 11:02 -Correct Patient Yes -Correct Side, Site, Position Yes -Correct Procedure Yes -Procedure Performed Yes -Type of Procedure Debridement -Clinical Debridement Subcutaneous -Post Debridement Size (cm) - Length 1.2 -Post Debridement Size (cm) - Width 1.4 -Post Debridement Size (cm) - Depth 0.1 -Total Square Cm 1.68 -Wound/Ulcer Outcome Not Healed -Ulcer Cleansing Rinsed/ Irrigated with Saline -Foul Odor after Cleansing No -Bioengineered Tissue No -Bleeding Controlled with Pressure -Treatment Response Procedure Tolerated Well #1 R [place] -Time -Correct Patient -Correct Side, Site, Position -Correct Procedure -Procedure Performed -Post Debridement Size (cm) - Length -Post Debridement Size (cm) - Width -Post Debridement Size (cm) - Depth -Total Square Cm -Wound/Ulcer Outcome -Ulcer Cleansing -Foul Odor after Cleansing -Bioengineered Tissue -Bleeding Controlled with -Treatment Response Pain Scale: 0-10 Numeric Is Patient Pain Free? Yes Wound debrided: Right Forearm ulcer Wound Grade/Stage: Stage II Type of Debridement: Excisional debridement Anesthesia Used: 5% Lidocaine Gel Depth: Down to and including healthy tissue, in the subcutaneous layer Percentage of wound debrided: 100 Instrument Used: 5mm curette Tissue Removed: Slough and devitalized tissue Severity: Fat Layer Exposed Amount of bleeding with debridement: Mild Bleeding Controlled with: Pressure Patient tolerated procedure well Assessment/Plan Active Problems Venous insufficiency (Chronic) Type 2 diabetes mellitus with diabetic polyneuropathy (Chronic) Delayed wound healing (Chronic) Open wound of right upper extremity (Acute) Assessment: right leg ulcer -healed. leg edema. venous insufficiency with planned intervention. ruled out peripheral vascular disease. diabetes with neurapathy. malnutrition suspected. Right Forearm Wound with Fat Layer Exposed ( Sees Dr. Quintero ). xerosis lower extremities Plan: No significant change in the past week. Minimal reduction in wound circumference. I believe patient will benefit from a skin substituite. Debridement done as documented above, procedure was well-tolerated. Continue Buffy daily with adaptic over top. Continue increased protein intake. Follow- up in 1 week. This note was generated with [employer] software. It may contain incorrect words, spelling, and punctuation that were not noted in checking the note before signing.
== END 2017-08-10 23:59 ==
LOC: WC 09:45
PROVIDERS: Family Provider Internal Medicine; PCP Internal Medicine; Visit Provider Internal Medicine
DX: E11.622 Type 2 diabetes mellitus with other skin ulcer (principal); E11.42 Type 2 diabetes mellitus with diabetic polyneuropathy; I87.2 Venous insufficiency (chronic) (peripheral); L97.812 Non-pressure chronic ulcer of other part of right lower leg with fat layer exposed; R60.0 Localized edema
CPT/HCPCS: 11042; 11045; 99213; G0463

== ENCOUNTER 2017-08-26 12:00 | Outpatient (RCR) | payer MEDICARE, OTHER, SELFPAY ==
[2017-08-11 00:47] VITALS: PULSE 89; RESP 16; TEMP 36.7
[2017-08-12 10:19] VITALS: BP 156/64; PULSE 87; RESP 16; TEMP 36.5
--- NOTE | 2017-08-12 12:50 | PCM.WC.PN ---
(1) Open wound of right upper extremity Status: Acute Current Visit: Yes Qualifiers: Code(s): S41.101A - Unspecified open wound of right upper arm, initial encounter (2) Type 2 diabetes mellitus with diabetic polyneuropathy Status: Chronic Current Visit: No Code(s): E11.42 - Type 2 diabetes mellitus with diabetic polyneuropathy Type of Wound Date of Service: 08/12/17 Chief Complaint: Right leg ulcer History of Wound: Mr Montalvo is a 77yo who also currently sees Dr. Castro for lower extremity ulcers. I was asked to see him for a non healing right upper extremity wound. Initially noted just over a month ago while in the hospital. He is unclear about the exact precipitating event but noted a blister beside an IV line which was subsequently incised about a week later while in the care home. Per patient, no significant drainage was noted after it was incised. He has been applying a dressing daily however, he is unsure of the name. This is not caused any significant change in the wound. He denies worsening or increasing pain at the wound site. He feels well and denies any other compliants at this time. Progress of Wound: Improving. - Physical Exam Vital Signs Temp Pulse Resp BP 97.7 F L 87 16 156/64 H 08/12/17 10:19 08/12/17 10:19 08/12/17 10:19 08/12/17 10:19 General: Alert, Oriented x3, Cooperative, No apparent distress HEENT: Atraumatic Oral: Moist Mucosa Neck: Supple Lungs: Normal air movement Cardiovascular: Regular rate Extremities: No cyanosis Skin: Ulcer/ Wound Wound Measurements and Assessment WC - Nurse 1 - General Ulcer Measurement Start: 08/12/17 10:19 Freq: Status: Active Protocol: Activity Type Activity Date Activity User E-Sign Co-Sign Detail Recorded Client Recorded Date Recorded By Document 08/12/17 10:19 [facility] [id number] 08/12/17 10:28 [facility] 08/12/17 10:19 Wound Center Nurse 1 [Ulcer Assessment] #2- RFA -Combined with other wound No -Current Size (cm) - Length 0.9 -Current Size (cm) - Width 1 -Current Size (cm) - Depth 0.1 -Total Square Cm 0.9 -Photo Taken No -Tunneling No -Undermining/Tunneling No -Circular Undermining No -Exudate Amt Small (1-33%) -Exudate Type Serosanguineous -Wound Margin Distinct, Outline Attached -Granulation Amt Large (67-100%) -Granulation Quality Red -Slough/Fibrin Yes -Necrosis Amt Small (1-33%) -Necrotic Tissue Type Adherent Slough -Texture (Ro-wound Skin Appearance) Scarring -Moisture (Ro-wound Skin Appearance Assessed ) -Color (Ro-wound Skin Appearance) Assessed -Temperature (Ro-wound Skin No Abnormality Appearance) (Pt Warm) -Tenderness on Palpation (Ro-wound No Skin Appearance) -Ulcer Cleansing Rinsed/ Irrigated with Saline -Foul Odor after Cleansing No -Anesthetic Used 4% Lidocaine Solution WC - Nurse 2 - General Ulcer CM Notes Start: 08/12/17 10:19 Freq: Status: Active Protocol: Activity Type Activity Date Activity User E-Sign Co-Sign Detail Recorded Client Recorded Date Recorded By Document 08/12/17 11:24 DV [id number] 08/12/17 11:26 DV 08/12/17 11:24 Wound Center Nurse 2 [Procedure/Treatment] -Time 11:24 -Correct Patient Yes -Correct Side, Site, Position Yes -Correct Procedure Yes -Procedure Performed Yes -Type of Procedure Debridement -Clinical Debridement Subcutaneous -Post Debridement Size (cm) - Length 0.9 -Post Debridement Size (cm) - Width 1.0 -Post Debridement Size (cm) - Depth 0.2 -Total Square Cm 0.90 -Wound/Ulcer Outcome Not Healed -Ulcer Cleansing Rinsed/ Irrigated with Saline -Foul Odor after Cleansing No -Bioengineered Tissue Yes -Type of bioengineered Tissue EPIFIX -Expiration Date 04/13/22 -Product Lot Number [id number] -Percent Used 100 -Topical Lidocaine (%) 4 -Bleeding Controlled with Pressure -Treatment Response Procedure Tolerated Well [See Physician Procedure note for Specifics] Pain Scale: 0-10 Numeric [Pain] -Is Patient Pain Free? Yes Musculoskeletal: No Muscle Wasting Neurological: Cranial nerves II-XII grossly intact Psych/Mental Status: Normal Affect Debridement Note Post-Debridement Measurements/Treatment WC - Nurse 2 - General Ulcer CM Notes Start: 08/12/17 10:19 Freq: Status: Active Protocol: Activity Type Activity Date Activity User E-Sign Co-Sign Detail Recorded Client Recorded Date Recorded By Document 08/12/17 11:24 DV [id number] 08/12/17 11:26 DV 08/12/17 11:24 Wound Center Nurse 2 #2- RFA -Time 11:24 -Correct Patient Yes -Correct Side, Site, Position Yes -Correct Procedure Yes -Procedure Performed Yes -Type of Procedure Debridement -Clinical Debridement Subcutaneous -Post Debridement Size (cm) - Length 0.9 -Post Debridement Size (cm) - Width 1.0 -Post Debridement Size (cm) - Depth 0.2 -Total Square Cm 0.90 -Wound/Ulcer Outcome Not Healed -Ulcer Cleansing Rinsed/ Irrigated with Saline -Foul Odor after Cleansing No -Bioengineered Tissue Yes -Type of bioengineered Tissue EPIFIX -Expiration Date 04/13/22 -Product Lot Number [id number] -Percent Used 100 -Topical Lidocaine (%) 4 -Bleeding Controlled with Pressure -Treatment Response Procedure Tolerated Well Pain Scale: 0-10 Numeric Is Patient Pain Free? Yes Wound debrided: Right Forearm Wound Grade/Stage: Stage II Type of Debridement: Excisional debridement Anesthesia Used: 4% Lidocaine Solution Depth: Down to and including healthy tissue, in the subcutaneous layer Percentage of wound debrided: 100 Instrument Used: 3mm curette Tissue Removed: Slough and Devitalized tissue Severity: Fat Layer Exposed Amount of bleeding with debridement: Mild Bleeding Controlled with: Pressure Patient tolerated procedure well Assessment/Plan Active Problems Open wound of right upper extremity (Acute) Assessment: Right Forearm Wound with Fat Layer Exposed. Plan: Significant improvement in the past week. Now approved for epifix. 1st application done today using 100% product with hydrogel to moisten. Secured with wound veil and steri strips over top. Procedure was well tolerated. Advised to keep area dry always. Continue increased protein intake. Follow-up in 1 week. This note was generated with [employer] dictation software. It may contain incorrect words, spelling, and punctuation that were not noted in checking the note before signing.
--- NOTE | 2017-08-12 12:53 | PN.PCM_ITS ---
(1) Open wound of right upper extremity Status: Acute Current Visit: Yes Qualifiers: Code(s): S41.101A - Unspecified open wound of right upper arm, initial encounter (2) Type 2 diabetes mellitus with diabetic polyneuropathy Status: Chronic Current Visit: No Code(s): E11.42 - Type 2 diabetes mellitus with diabetic polyneuropathy Type of Wound Date of Service: 08/12/17 Chief Complaint: Right leg ulcer History of Wound: Mr Montalvo is a 77yo who also currently sees Dr. Castro for lower extremity ulcers. I was asked to see him for a non healing right upper extremity wound. Initially noted just over a month ago while in the hospital. He is unclear about the exact precipitating event but noted a blister beside an IV line which was subsequently incised about a week later while in the [facility]. Per patient, no significant drainage was noted after it was incised. He has been applying a dressing daily however, he is unsure of the name. This is not caused any significant change in the wound. He denies worsening or increasing pain at the wound site. He feels well and denies any other compliants at this time. Progress of Wound: Improving. - Physical Exam Vital Signs Temp Pulse Resp BP 97.7 F L 87 16 156/64 H 08/12/17 10:19 08/12/17 10:19 08/12/17 10:19 08/12/17 10:19 General: Alert, Oriented x3, Cooperative, No apparent distress HEENT: Atraumatic Oral: Moist Mucosa Neck: Supple Lungs: Normal air movement Cardiovascular: Regular rate Extremities: No cyanosis Skin: Ulcer/ Wound Wound Measurements and Assessment WC - Nurse 1 - General Ulcer Measurement Start: 08/12/17 10:19 Freq: Status: Active Protocol: Activity Type Activity Date Activity User E-Sign Co-Sign Detail Recorded Client Recorded Date Recorded By Document 08/12/17 10:19 [facility] [id number] 08/12/17 10:28 [facility] 08/12/17 10:19 Wound Center Nurse 1 [Ulcer Assessment] #2- RFA -Combined with other wound No -Current Size (cm) - Length 0.9 -Current Size (cm) - Width 1 -Current Size (cm) - Depth 0.1 -Total Square Cm 0.9 -Photo Taken No -Tunneling No -Undermining/Tunneling No -Circular Undermining No -Exudate Amt Small (1-33%) -Exudate Type Serosanguineous -Wound Margin Distinct, Outline Attached -Granulation Amt Large (67-100%) -Granulation Quality Red -Slough/Fibrin Yes -Necrosis Amt Small (1-33%) -Necrotic Tissue Type Adherent Slough -Texture (Ro-wound Skin Appearance) Scarring -Moisture (Ro-wound Skin Appearance Assessed ) -Color (Ro-wound Skin Appearance) Assessed -Temperature (Ro-wound Skin No Abnormality Appearance) (Pt Warm) -Tenderness on Palpation (Ro-wound No Skin Appearance) -Ulcer Cleansing Rinsed/ Irrigated with Saline -Foul Odor after Cleansing No -Anesthetic Used 4% Lidocaine Solution WC - Nurse 2 - General Ulcer CM Notes Start: 08/12/17 10:19 Freq: Status: Active Protocol: Activity Type Activity Date Activity User E-Sign Co-Sign Detail Recorded Client Recorded Date Recorded By Document 08/12/17 11:24 DV [id number] 08/12/17 11:26 DV 08/12/17 11:24 Wound Center Nurse 2 [Procedure/Treatment] -Time 11:24 -Correct Patient Yes -Correct Side, Site, Position Yes -Correct Procedure Yes -Procedure Performed Yes -Type of Procedure Debridement -Clinical Debridement Subcutaneous -Post Debridement Size (cm) - Length 0.9 -Post Debridement Size (cm) - Width 1.0 -Post Debridement Size (cm) - Depth 0.2 -Total Square Cm 0.90 -Wound/Ulcer Outcome Not Healed -Ulcer Cleansing Rinsed/ Irrigated with Saline -Foul Odor after Cleansing No -Bioengineered Tissue Yes -Type of bioengineered Tissue EPIFIX -Expiration Date 04/13/22 -Product Lot Number [id number] -Percent Used 100 -Topical Lidocaine (%) 4 -Bleeding Controlled with Pressure -Treatment Response Procedure Tolerated Well [See Physician Procedure note for Specifics] Pain Scale: 0-10 Numeric [Pain] -Is Patient Pain Free? Yes Musculoskeletal: No Muscle Wasting Neurological: Cranial nerves II-XII grossly intact Psych/Mental Status: Normal Affect Debridement Note Post-Debridement Measurements/Treatment WC - Nurse 2 - General Ulcer CM Notes Start: 08/12/17 10:19 Freq: Status: Active Protocol: Activity Type Activity Date Activity User E-Sign Co-Sign Detail Recorded Client Recorded Date Recorded By Document 08/12/17 11:24 DV [id number] 08/12/17 11:26 DV 08/12/17 11:24 Wound Center Nurse 2 #2- RFA -Time 11:24 -Correct Patient Yes -Correct Side, Site, Position Yes -Correct Procedure Yes -Procedure Performed Yes -Type of Procedure Debridement -Clinical Debridement Subcutaneous -Post Debridement Size (cm) - Length 0.9 -Post Debridement Size (cm) - Width 1.0 -Post Debridement Size (cm) - Depth 0.2 -Total Square Cm 0.90 -Wound/Ulcer Outcome Not Healed -Ulcer Cleansing Rinsed/ Irrigated with Saline -Foul Odor after Cleansing No -Bioengineered Tissue Yes -Type of bioengineered Tissue EPIFIX -Expiration Date 04/13/22 -Product Lot Number [id number] -Percent Used 100 -Topical Lidocaine (%) 4 -Bleeding Controlled with Pressure -Treatment Response Procedure Tolerated Well Pain Scale: 0-10 Numeric Is Patient Pain Free? Yes Wound debrided: Right Forearm Wound Grade/Stage: Stage II Type of Debridement: Excisional debridement Anesthesia Used: 4% Lidocaine Solution Depth: Down to and including healthy tissue, in the subcutaneous layer Percentage of wound debrided: 100 Instrument Used: 3mm curette Tissue Removed: Slough and Devitalized tissue Severity: Fat Layer Exposed Amount of bleeding with debridement: Mild Bleeding Controlled with: Pressure Patient tolerated procedure well Assessment/Plan Active Problems Open wound of right upper extremity (Acute) Assessment: Right Forearm Wound with Fat Layer Exposed. Plan: Significant improvement in the past week. Now approved for epifix. 1st application done today using 100% product with hydrogel to moisten. Secured with wound veil and steri strips over top. Procedure was well tolerated. Advised to keep area dry always. Continue increased protein intake. Follow-up in 1 week. This note was generated with [employer] dictation software. It may contain incorrect words, spelling, and punctuation that were not noted in checking the note before signing.
[2017-08-19 10:02] VITALS: BP 149/78; PULSE 98; RESP 18; TEMP 37
--- NOTE | 2017-08-19 17:28 | PN.PCM_ITS ---
(1) Open wound of right upper extremity Status: Acute Current Visit: Yes Qualifiers: Code(s): S41.101A - Unspecified open wound of right upper arm, initial encounter (2) Type 2 diabetes mellitus with diabetic polyneuropathy Status: Chronic Current Visit: No Code(s): E11.42 - Type 2 diabetes mellitus with diabetic polyneuropathy Type of Wound Date of Service: 08/19/17 Chief Complaint: Right leg ulcer History of Wound: Mr Montalvo is a 77yo who also currently sees Dr. Castro for lower extremity ulcers. I was asked to see him for a non healing right upper extremity wound. Initially noted just over a month ago while in the hospital. He is unclear about the exact precipitating event but noted a blister beside an IV line which was subsequently incised about a week later while in the group home. Per patient, no significant drainage was noted after it was incised. He has been applying a dressing daily however, he is unsure of the name. This is not caused any significant change in the wound. He denies worsening or increasing pain at the wound site. He feels well and denies any other compliants at this time. Progress of Wound: Improving. - Physical Exam Vital Signs Temp Pulse Resp BP 98.6 F 98 18 149/78 H 08/19/17 10:02 08/19/17 10:02 08/19/17 10:02 08/19/17 10:02 General: Alert, Oriented x3, Cooperative, No apparent distress HEENT: Atraumatic, Normocephalic Oral: Moist Mucosa Neck: Supple Lungs: Normal air movement Cardiovascular: Regular rate Extremities: No cyanosis Skin: Ulcer/ Wound Wound Measurements and Assessment WC - Nurse 1 - General Ulcer Measurement Start: 08/12/17 10:19 Freq: Status: Active Protocol: Activity Type Activity Date Activity User E-Sign Co-Sign Detail Recorded Client Recorded Date Recorded By Document 08/19/17 10:02 [id number] 08/19/17 10:04 08/19/17 10:02 Wound Center Nurse 1 [Ulcer Assessment] #2- RFA -Combined with other wound No -Current Size (cm) - Length 1.1 -Current Size (cm) - Width 1.0 -Current Size (cm) - Depth 0.1 -Total Square Cm 1.10 -Epithelialization Small 1-33% -Tunneling No -Undermining/Tunneling No -Circular Undermining No -Classification - Thickness Full Thickness without Exposed Support Structure -Exudate Amt Small (1-33%) -Exudate Type Serosanguineous -Wound Margin Distinct, Outline Attached -Granulation Amt Small (1-33%) -Granulation Quality Pale -Slough/Fibrin Yes -Necrosis Amt Large (67-100%) -Necrotic Tissue Type Adherent Slough -Structure Exposed Fascia Fat Layer Exposed -Texture (Ro-wound Skin Appearance) No Abnormality -Moisture (Ro-wound Skin Appearance Dry/Scaly ) -Color (Ro-wound Skin Appearance) No Abnormality -Temperature (Ro-wound Skin No Abnormality Appearance) (Pt Warm) -Tenderness on Palpation (Ro-wound No Skin Appearance) -Ulcer Cleansing Rinsed/ Irrigated with Saline -Foul Odor after Cleansing No -Anesthetic Used 5% Lidocaine Gel [Edema Assessment] -Lower Limb Edema Present No WC - Nurse 2 - General Ulcer CM Notes Start: 08/12/17 10:19 Freq: Status: Active Protocol: Activity Type Activity Date Activity User E-Sign Co-Sign Detail Recorded Client Recorded Date Recorded By Document 08/19/17 11:11 DV [id number] 08/19/17 11:17 DV 08/19/17 11:11 Wound Center Nurse 2 [Procedure/Treatment] #2- RFA -Time 11:15 -Correct Patient Yes -Correct Side, Site, Position Yes -Correct Procedure Yes -Procedure Performed Yes -Type of Procedure Debridement -Clinical Debridement Subcutaneous -Post Debridement Size (cm) - Length 0.4 -Post Debridement Size (cm) - Width 0.3 -Post Debridement Size (cm) - Depth 0.1 -Total Square Cm 0.12 -Wound/Ulcer Outcome Not Healed -Ulcer Cleansing Rinsed/ Irrigated with Saline -Foul Odor after Cleansing No -Bioengineered Tissue Yes -Type of bioengineered Tissue EPIFIX -Bleeding Controlled with Pressure -Treatment Response Procedure Tolerated Well [See Physician Procedure note for Specifics] Pain Scale: 0-10 Numeric [Pain] -Is Patient Pain Free? Yes Musculoskeletal: No Muscle Wasting Neurological: Cranial nerves II-XII grossly intact Psych/Mental Status: Normal Affect Debridement Note Post-Debridement Measurements/Treatment WC - Nurse 2 - General Ulcer CM Notes Start: 08/12/17 10:19 Freq: Status: Active Protocol: Activity Type Activity Date Activity User E-Sign Co-Sign Detail Recorded Client Recorded Date Recorded By Document 08/12/17 11:24 DV [id number] 08/12/17 11:26 DV Document 08/19/17 11:11 DV [id number] 08/19/17 11:17 DV 08/12/17 08/19/17 11:24 11:11 Wound Center Nurse 2 #2- RFA -Time 11:24 11:15 -Correct Patient Yes Yes -Correct Side, Site, Position Yes Yes -Correct Procedure Yes Yes -Procedure Performed Yes Yes -Type of Procedure Debridement Debridement -Clinical Debridement Subcutaneous Subcutaneous -Post Debridement Size (cm) - Length 0.9 0.4 -Post Debridement Size (cm) - Width 1.0 0.3 -Post Debridement Size (cm) - Depth 0.2 0.1 -Total Square Cm 0.90 0.12 -Wound/Ulcer Outcome Not Healed Not Healed -Ulcer Cleansing Rinsed/ Rinsed/ Irrigated with Irrigated with Saline Saline -Foul Odor after Cleansing No No -Bioengineered Tissue Yes Yes -Type of bioengineered Tissue EPIFIX EPIFIX -Expiration Date 04/13/22 -Product Lot Number [id number] -Percent Used 100 -Topical Lidocaine (%) 4 -Bleeding Controlled with Pressure Pressure -Treatment Response Procedure Procedure Tolerated Well Tolerated Well Pain Scale: 0-10 Numeric Is Patient Pain Free? Yes Yes Wound debrided: Right Forearm Wound Grade/Stage: Stage II Type of Debridement: Excisional debridement Anesthesia Used: 4% Lidocaine Solution Depth: Down to and including healthy tissue, in the subcutaneous layer Percentage of wound debrided: 100 Instrument Used: 3mm curette Tissue Removed: Slough and devitalized tissue Severity: Fat Layer Exposed Amount of bleeding with debridement: Mild Bleeding Controlled with: Pressure Patient tolerated procedure well Assessment/Plan Active Problems Open wound of right upper extremity (Acute) Assessment: Right Forearm Wound with Fat Layer Exposed. Plan: Significant improvement in the past week. 2nd application done today using 100% product with hydrogel to moisten. Secured with wound veil and steri strips over top. Procedure was well tolerated. Advised to keep area dry always. Continue increased protein intake. Follow-up in 1 week. This note was generated with [employer] software. It may contain incorrect words, spelling, and punctuation that were not noted in checking the note before signing.
[2017-08-26 12:56] VITALS: BP 148/83; PULSE 85; RESP 16; TEMP 36.3
--- NOTE | 2017-08-26 13:29 | PCM.WC.PN ---
(1) Open wound of right upper extremity Status: Acute Current Visit: Yes Qualifiers: Code(s): S41.101A - Unspecified open wound of right upper arm, initial encounter (2) Type 2 diabetes mellitus with diabetic polyneuropathy Status: Chronic Current Visit: No Code(s): E11.42 - Type 2 diabetes mellitus with diabetic polyneuropathy Type of Wound Date of Service: 08/26/17 Chief Complaint: Right leg ulcer History of Wound: Mr Montalvo is a 77yo who also currently sees Dr. Castro for lower extremity ulcers. I was asked to see him for a non healing right upper extremity wound. Initially noted just over a month ago while in the hospital. He is unclear about the exact precipitating event but noted a blister beside an IV line which was subsequently incised about a week later while in the sn[facility]. Per patient, no significant drainage was noted after it was incised. He has been applying a dressing daily however, he is unsure of the name. This is not caused any significant change in the wound. He denies worsening or increasing pain at the wound site. He feels well and denies any other compliants at this time. Progress of Wound: Healed. - Physical Exam Vital Signs Temp Pulse Resp BP 97.3 F L 85 16 148/83 H 08/26/17 12:56 08/26/17 12:56 08/26/17 12:56 08/26/17 12:56 General: Alert, Oriented x3, Cooperative, No apparent distress HEENT: Atraumatic, Normocephalic Oral: Moist Mucosa Neck: Supple Lungs: Normal air movement Cardiovascular: Regular rate Abdomen: Non Tender Extremities: No cyanosis Wound Measurements and Assessment WC - Nurse 1 - General Ulcer Measurement Start: 08/12/17 10:19 Freq: Status: Active Protocol: Activity Type Activity Date Activity User E-Sign Co-Sign Detail Recorded Client Recorded Date Recorded By Document 08/26/17 12:56 [facility] [id number] 08/26/17 13:06 [facility] 08/26/17 12:56 Wound Center Nurse 1 [Ulcer Assessment] #2- RFA -Combined with other wound No -Current Size (cm) - Length 0.1 -Current Size (cm) - Width 0.1 -Current Size (cm) - Depth 0.1 -Total Square Cm 0.01 -Epithelialization Large 67-100% -Structure Exposed N/A -Texture (Ro-wound Skin Appearance) Scarring -Moisture (Ro-wound Skin Appearance Dry/Scaly ) -Temperature (Ro-wound Skin No Abnormality Appearance) (Pt Warm) -Tenderness on Palpation (Ro-wound No Skin Appearance) -Ulcer Cleansing Rinsed/ Irrigated with Saline -Foul Odor after Cleansing No -Anesthetic Used 5% Lidocaine Gel WC - Nurse 2 - General Ulcer CM Notes Start: 08/12/17 10:19 Freq: Status: Active Protocol: Activity Type Activity Date Activity User E-Sign Co-Sign Detail Recorded Client Recorded Date Recorded By Document 08/26/17 13:27 DV [id number] 08/26/17 13:28 DV 08/26/17 13:27 Wound Center Nurse 2 [Procedure/Treatment] -Time 13:27 -Correct Patient Yes -Procedure Performed No -Post Debridement Size (cm) - Length 0 -Post Debridement Size (cm) - Width 0 -Post Debridement Size (cm) - Depth 0 -Total Square Cm 0 -Wound/Ulcer Outcome Healed- Epithelialized [See Physician Procedure note for Specifics] Pain Scale: 0-10 Numeric [Pain] -Is Patient Pain Free? Yes Musculoskeletal: No Muscle Wasting Neurological: Cranial nerves II-XII grossly intact Psych/Mental Status: Normal Affect Debridement Note Post-Debridement Measurements/Treatment - Nurse 2 - General Ulcer CM Notes Start: 08/12/17 10:19 Freq: Status: Active Protocol: Activity Type Activity Date Activity User E-Sign Co-Sign Detail Recorded Client Recorded Date Recorded By Document 08/12/17 11:24 DV [id number] 08/12/17 11:26 DV Document 08/19/17 11:11 DV [id number] 08/19/17 11:17 DV Document 08/26/17 13:27 DV [id number] 08/26/17 13:28 DV 08/12/17 08/19/17 08/26/17 11:24 11:11 13:27 Wound Center Nurse 2 #2- RFA -Time 11:24 11:15 13:27 -Correct Patient Yes Yes Yes -Correct Side, Site, Position Yes Yes -Correct Procedure Yes Yes -Procedure Performed Yes Yes No -Type of Procedure Debridement Debridement -Clinical Debridement Subcutaneous Subcutaneous -Post Debridement Size (cm) - Length 0.9 0.4 0 -Post Debridement Size (cm) - Width 1.0 0.3 0 -Post Debridement Size (cm) - Depth 0.2 0.1 0 -Total Square Cm 0.90 0.12 0 -Wound/Ulcer Outcome Not Healed Not Healed Healed- Epithelialized -Ulcer Cleansing Rinsed/ Rinsed/ Irrigated with Irrigated with Saline Saline -Foul Odor after Cleansing No No -Bioengineered Tissue Yes Yes -Type of bioengineered Tissue EPIFIX EPIFIX -Expiration Date 04/13/22 -Product Lot Number [id number] -Percent Used 100 -Topical Lidocaine (%) 4 -Bleeding Controlled with Pressure Pressure -Treatment Response Procedure Procedure Tolerated Well Tolerated Well Pain Scale: 0-10 Numeric Is Patient Pain Free? Yes Yes Yes No debridement was completed today Assessment/Plan Active Problems Open wound of right upper extremity (Acute) Assessment: Right Forearm Wound with Fat Layer Exposed. Plan: Wound is healed. However skin still thin and friable. Adaptic over top with gauze daily for the next two weeks. Patient advised to keep the area protected until skin intergrity is restored. Continue increased protein intake. Discharge from the wound clinic. This note was generated with [employer] dictation software. It may contain incorrect words, spelling, and punctuation that were not noted in checking the note before signing.
--- NOTE | 2017-08-26 13:32 | PN.PCM_ITS ---
(1) Open wound of right upper extremity Status: Acute Current Visit: Yes Qualifiers: Code(s): S41.101A - Unspecified open wound of right upper arm, initial encounter (2) Type 2 diabetes mellitus with diabetic polyneuropathy Status: Chronic Current Visit: No Code(s): E11.42 - Type 2 diabetes mellitus with diabetic polyneuropathy Type of Wound Date of Service: 08/26/17 Chief Complaint: Right leg ulcer History of Wound: Mr Montalvo is a 77yo who also currently sees Dr. Castro for lower extremity ulcers. I was asked to see him for a non healing right upper extremity wound. Initially noted just over a month ago while in the hospital. He is unclear about the exact precipitating event but noted a blister beside an IV line which was subsequently incised about a week later while in the residential. Per patient, no significant drainage was noted after it was incised. He has been applying a dressing daily however, he is unsure of the name. This is not caused any significant change in the wound. He denies worsening or increasing pain at the wound site. He feels well and denies any other compliants at this time. Progress of Wound: Healed. - Physical Exam Vital Signs Temp Pulse Resp BP 97.3 F L 85 16 148/83 H 08/26/17 12:56 08/26/17 12:56 08/26/17 12:56 08/26/17 12:56 General: Alert, Oriented x3, Cooperative, No apparent distress HEENT: Atraumatic, Normocephalic Oral: Moist Mucosa Neck: Supple Lungs: Normal air movement Cardiovascular: Regular rate Abdomen: Non Tender Extremities: No cyanosis Wound Measurements and Assessment WC - Nurse 1 - General Ulcer Measurement Start: 08/12/17 10:19 Freq: Status: Active Protocol: Activity Type Activity Date Activity User E-Sign Co-Sign Detail Recorded Client Recorded Date Recorded By Document 08/26/17 12:56 [facility] [id number] 08/26/17 13:06 [facility] 08/26/17 12:56 Wound Center Nurse 1 [Ulcer Assessment] #2- RFA -Combined with other wound No -Current Size (cm) - Length 0.1 -Current Size (cm) - Width 0.1 -Current Size (cm) - Depth 0.1 -Total Square Cm 0.01 -Epithelialization Large 67-100% -Structure Exposed N/A -Texture (Ro-wound Skin Appearance) Scarring -Moisture (Ro-wound Skin Appearance Dry/Scaly ) -Temperature (Ro-wound Skin No Abnormality Appearance) (Pt Warm) -Tenderness on Palpation (Ro-wound No Skin Appearance) -Ulcer Cleansing Rinsed/ Irrigated with Saline -Foul Odor after Cleansing No -Anesthetic Used 5% Lidocaine Gel WC - Nurse 2 - General Ulcer CM Notes Start: 08/12/17 10:19 Freq: Status: Active Protocol: Activity Type Activity Date Activity User E-Sign Co-Sign Detail Recorded Client Recorded Date Recorded By Document 08/26/17 13:27 DV [id number] 08/26/17 13:28 DV 08/26/17 13:27 Wound Center Nurse 2 [Procedure/Treatment] -Time 13:27 -Correct Patient Yes -Procedure Performed No -Post Debridement Size (cm) - Length 0 -Post Debridement Size (cm) - Width 0 -Post Debridement Size (cm) - Depth 0 -Total Square Cm 0 -Wound/Ulcer Outcome Healed- Epithelialized [See Physician Procedure note for Specifics] Pain Scale: 0-10 Numeric [Pain] -Is Patient Pain Free? Yes Musculoskeletal: No Muscle Wasting Neurological: Cranial nerves II-XII grossly intact Psych/Mental Status: Normal Affect Debridement Note Post-Debridement Measurements/Treatment - Nurse 2 - General Ulcer CM Notes Start: 08/12/17 10:19 Freq: Status: Active Protocol: Activity Type Activity Date Activity User E-Sign Co-Sign Detail Recorded Client Recorded Date Recorded By Document 08/12/17 11:24 DV [id number] 08/12/17 11:26 DV Document 08/19/17 11:11 DV [id number] 08/19/17 11:17 DV Document 08/26/17 13:27 DV [id number] 08/26/17 13:28 DV 08/12/17 08/19/17 08/26/17 11:24 11:11 13:27 Wound Center Nurse 2 #2- RFA -Time 11:24 11:15 13:27 -Correct Patient Yes Yes Yes -Correct Side, Site, Position Yes Yes -Correct Procedure Yes Yes -Procedure Performed Yes Yes No -Type of Procedure Debridement Debridement -Clinical Debridement Subcutaneous Subcutaneous -Post Debridement Size (cm) - Length 0.9 0.4 0 -Post Debridement Size (cm) - Width 1.0 0.3 0 -Post Debridement Size (cm) - Depth 0.2 0.1 0 -Total Square Cm 0.90 0.12 0 -Wound/Ulcer Outcome Not Healed Not Healed Healed- Epithelialized -Ulcer Cleansing Rinsed/ Rinsed/ Irrigated with Irrigated with Saline Saline -Foul Odor after Cleansing No No -Bioengineered Tissue Yes Yes -Type of bioengineered Tissue EPIFIX EPIFIX -Expiration Date 04/13/22 -Product Lot Number [id number] -Percent Used 100 -Topical Lidocaine (%) 4 -Bleeding Controlled with Pressure Pressure -Treatment Response Procedure Procedure Tolerated Well Tolerated Well Pain Scale: 0-10 Numeric Is Patient Pain Free? Yes Yes Yes No debridement was completed today Assessment/Plan Active Problems Open wound of right upper extremity (Acute) Assessment: Right Forearm Wound with Fat Layer Exposed. Plan: Wound is healed. However skin still thin and friable. Adaptic over top with gauze daily for the next two weeks. Patient advised to keep the area protected until skin intergrity is restored. Continue increased protein intake. Discharge from the wound clinic. This note was generated with [employer] dictation software. It may contain incorrect words, spelling, and punctuation that were not noted in checking the note before signing.
== END 2017-09-10 23:59 ==
LOC: WC 12:00
PROVIDERS: Family Provider Internal Medicine; PCP Internal Medicine; Visit Provider Internal Medicine
DX: E11.622 Type 2 diabetes mellitus with other skin ulcer (principal); E11.42 Type 2 diabetes mellitus with diabetic polyneuropathy; L98.492 Non-pressure chronic ulcer of skin of other sites with fat layer exposed
CPT/HCPCS: 15271; 99212; Q4131; G0463

== ENCOUNTER 2018-12-10 13:06 | Outpatient (RCR) | payer MEDICARE, OTHER, SELFPAY ==
[2018-12-10 13:47] VITALS: BP 167/69; PULSE 60; RESP 18; TEMP 36.2; BMI 29.5
--- NOTE | 2018-12-10 14:15 | WC ---
PT WILL BRING LIST OF MEDICATION DOSAGES AT NEXT VISIT. ONLY HAD LIST OF MED NAMES THIS VISIT.
--- NOTE | 2018-12-10 18:32 | PCM.WC.HP ---
(1) Venous insufficiency Status: Chronic Current Visit: Yes Code(s): I87.2 - Venous insufficiency (chronic) (peripheral) (2) Type 2 diabetes mellitus with diabetic polyneuropathy Status: Chronic Current Visit: Yes Qualifiers: Diabetes mellitus long distance operator insulin use: without long distance operator use Qualified Code(s): E11.42 - Type 2 diabetes mellitus with diabetic polyneuropathy Code(s): E11.42 - Type 2 diabetes mellitus with diabetic polyneuropathy (3) Venous ulcer of left lower extremity without varicose veins Status: Chronic Current Visit: Yes Code(s): I87.2 - Venous insufficiency (chronic) (peripheral); L97.929 - Non-pressure chronic ulcer of unspecified part of left lower leg with unspecified severity History of Present Illness Date of Service: 12/10/18 Chief Complaint: Left leg ulcer History of Wound: Mr Montalvo is a 78 yo man who presents to the wound center for evaluation and treatment of an ulcer that developed on his left lower leg on October 29, 2018. He had pain and erythema and was treated for cellulitis with antibiotics, he does not remember the exact name. Several days later he noticed a pustule which opened and began draining. He saw his primary care and was treated with silvadene which he has been applying and then covering with gauze. He was also treated with a second antibiotic that he thinks may have bee ciprofloxacin for 14 days. The ulcer has decresed in size somewhat but has not healed. He admits drainage from the ulcer but denies pain or erythema surrounding the ulcer. He has not been using any compression. He denies fever, chills or odor. Past Medical History Past Medical History: Chronic Problems Venous insufficiency (Chronic) Leg edema, right (Chronic) Type 2 diabetes mellitus with diabetic polyneuropathy (Chronic) Malnutrition (Chronic) Delayed wound healing (Chronic) Venous ulcer of left lower extremity without varicose veins (Chronic) Allergies/Adverse Reactions: Allergies No Known Allergies Allergy (Verified 12/10/18 14:12) Home Medications: Ambulatory Orders Medication Instructions Recorded Lasix DAILY 05/27/17 Warfarin [Coumadin ([facility])] mg PO DAILY 05/27/17 Amiodarone HCl [Pacerone] mg PO DAILY 12/10/18 Aspirin mg PO DAILY 12/10/18 Atorvastatin Calcium [Lipitor] mg PO QHS 12/10/18 Carvedilol [Coreg] mg PO DAILY 12/10/18 Lisinopril mg PO DAILY 12/10/18 Spironolactone mg PO DAILY 12/10/18 - Family History Maternal No pertinent history Paternal No pertinent history Lives: [facility] Smoking Status: Never smoker Tobacco Use: Non-smoker Alcohol: None Drugs: None Review of Systems Constitutional: Denies: Chills, Fever, Weight Change Eyes: Denies: Pain, Vision Change HEENT: Denies: Difficulty Hearing, Difficulty Swallowing, Sinus Congestion Cardiovascular: Denies: Chest Pain, Palpitations Respiratory: Denies: Cough, Shortness of Breath Gastrointestinal: Denies: Diarrhea, Nausea, Vomiting Genitourinary: Denies: Dysuria, Hematuria Skin: Reports: Wounds Endocrine: Denies: Heat/ Cold Intolerance, Polydipsia, Polyuria Hematologic/ Lymphatic: Reports: Easy Bruising, Easy Bleeding - Physical Exam Vital Signs Temp Pulse Resp BP 97.1 F L 60 18 167/69 H 12/10/18 13:47 12/10/18 13:47 12/10/18 13:47 12/10/18 13:47 General: Alert, Oriented x3, Cooperative, No apparent distress HEENT: Atraumatic, Normocephalic Oral: Moist Mucosa Neck: Supple Lungs: Clear to auscultation Cardiovascular: Regular rate Abdomen: Soft, Non Tender, Obese Extremities: No Calf Tenderness, Edema Skin: Ulcer/ Wound Wound Measurements and Assessment WC - Nurse 1 - General Ulcer Measurement Start: 12/10/18 13:44 Freq: Status: Active Protocol: Activity Type Activity Date Activity User E-Sign Co-Sign Detail Recorded Client Recorded Date Recorded By Document 12/10/18 13:47 [facility] [id number] 12/10/18 14:06 [facility] 12/10/18 13:47 Wound Center Nurse 1 [Ulcer Assessment] #3- L MED LE -Combined with other wound No -Current Size (cm) - Length 0.3 -Current Size (cm) - Width 0.2 -Current Size (cm) - Depth 0.2 -Total Square Cm 0.06 -Date of Last Picture (Recall this 12/10/18 field) -Photo Taken Yes -Epithelialization None Present -Tunneling No -Undermining/Tunneling No -Circular Undermining No -Exudate Amt Small -Exudate Type Serous -Wound Margin Flat & Intact -Granulation Amt Medium (34-66%) -Granulation Quality Red -Slough/Fibrin Yes -Necrosis Amt Small (1-33%) -Necrotic Tissue Type Adherent Slough -Texture (Ro-wound Skin Appearance) Assessed, Scarring -Moisture (Ro-wound Skin Appearance Assessed,Dry/ ) Scaly -Color (Ro-wound Skin Appearance) Assessed -Temperature (Ro-wound Skin No Abnormality Appearance) (Pt Warm) -Tenderness on Palpation (Ro-wound No Skin Appearance) -Ulcer Cleansing Rinsed/ Irrigated with Saline -Foul Odor after Cleansing No -Anesthetic Used 5% Lidocaine Gel [Edema Assessment] -Lower Limb Edema Present Yes -Right Calf (cm) 32.1 -Right Ankle (cm) 21.2 -Left Calf (cm) 34.1 -Left Ankle (cm) 22.5 WC - Nurse 2 - General Ulcer CM Notes Start: 12/10/18 13:44 Freq: Status: Active Protocol: Activity Type Activity Date Activity User E-Sign Co-Sign Detail Recorded Client Recorded Date Recorded By Document 12/10/18 14:33 MW [id number] 12/10/18 14:46 MW 12/10/18 14:33 Wound Center Nurse 2 [Procedure/Treatment] #3- L MED LE -Time 14:33 -Correct Patient Yes -Correct Side, Site, Position Yes -Correct Procedure Yes -Procedure Performed Yes -Type of Procedure Debridement -Clinical Debridement Subcutaneous -Post Debridement Size (cm) - Length 0.4 -Post Debridement Size (cm) - Width 0.4 -Post Debridement Size (cm) - Depth 0.3 -Total Square Cm 0.16 -Wound/Ulcer Outcome Not Healed -Ulcer Cleansing Rinsed/ Irrigated with Saline -Foul Odor after Cleansing No -Bioengineered Tissue No -Bleeding Controlled with Pressure -Offloading No -Treatment Response Procedure Tolerated Well [See Physician Procedure note for Specifics] Pain Scale: 0-10 Numeric [Pain] -Is Patient Pain Free? Yes Psych/Mental Status: Normal Affect, Appropriate Debridement Note Post-Debridement Measurements/Treatment WC - Nurse 2 - General Ulcer CM Notes Start: 12/10/18 13:44 Freq: Status: Active Protocol: Activity Type Activity Date Activity User E-Sign Co-Sign Detail Recorded Client Recorded Date Recorded By Document 12/10/18 14:33 MW [id number] 12/10/18 14:46 12/10/18 14:33 Wound Center Nurse 2 #3- L MED LE -Time 14:33 -Correct Patient Yes -Correct Side, Site, Position Yes -Correct Procedure Yes -Procedure Performed Yes -Type of Procedure Debridement -Clinical Debridement Subcutaneous -Post Debridement Size (cm) - Length 0.4 -Post Debridement Size (cm) - Width 0.4 -Post Debridement Size (cm) - Depth 0.3 -Total Square Cm 0.16 -Wound/Ulcer Outcome Not Healed -Ulcer Cleansing Rinsed/ Irrigated with Saline -Foul Odor after Cleansing No -Bioengineered Tissue No -Bleeding Controlled with Pressure -Offloading No -Treatment Response Procedure Tolerated Well Pain Scale: 0-10 Numeric Is Patient Pain Free? Yes Wound debrided: left medial LE Laterality: Left Type of Debridement: Excisional debridement Anesthesia Used: 4% Lidocaine Solution, 5% Lidocaine Gel Depth: Down to and including healthy tissue, in the subcutaneous layer Percentage of wound debrided: 100 Instrument Used: 3mm curette Tissue Removed: yellow slough, devitalized tissue Severity: Fat Layer Exposed Amount of bleeding with debridement: Mild Bleeding Controlled with: Compression and gauze Patient tolerated procedure well Assessment/Plan Active Problems Venous insufficiency (Chronic) Type 2 diabetes mellitus with diabetic polyneuropathy (Chronic) Venous ulcer of left lower extremity without varicose veins (Chronic) Assessment: left medial LE venous ulcer Plan: Carmen ulcer was evaluated and debrided today. Wound cultures were taken to evaluate for infection as a cause of his poor wound healing. Will request records of his most recent labs for A1C. Consider pre-albumin. His blood sugar this morning was 145. He had vascular testing done in June 2017 which showed venous incompetence but per the patient he had a procedure done by Dr. Cifuentes. Will request records regarding this procedure. Will dress his ulcer with Buffy moistened and cover with gauze. Will treat for infection based on cultures. Will use double layer tubigrip for compression. Encouraged to call with any signs of infection, fever, chills, erythema or increased drainage. F/U in 1 week.
== END 2018-12-11 23:59 ==
LOC: WC 13:06
PROVIDERS: Family Provider Internal Medicine; PCP Internal Medicine; Referring Provider Internal Medicine; Visit Provider Family Medicine
DX: E11.622 Type 2 diabetes mellitus with other skin ulcer (principal); E11.42 Type 2 diabetes mellitus with diabetic polyneuropathy; I87.2 Venous insufficiency (chronic) (peripheral); L97.822 Non-pressure chronic ulcer of other part of left lower leg with fat layer exposed; Z79.899 Other long term (current) drug therapy; Z79.82 Long term (current) use of aspirin; Z79.01 Long term (current) use of anticoagulants
CPT/HCPCS: 11042; 87070; 87075; 87205; 99213; G0463

== ENCOUNTER 2018-12-29 11:15 | Outpatient (RCR) | payer MEDICARE, OTHER, SELFPAY ==
[2018-12-12 01:17] VITALS: BP 167/69; PULSE 60; RESP 18; TEMP 36.2
[2018-12-22 11:28] VITALS: BP 145/75; PULSE 67; RESP 18; TEMP 36.7; BMI 29.5
--- NOTE | 2018-12-22 17:54 | PCM.WC.PN ---
(1) Ulcer of left lower extremity with fat layer exposed Status: Acute Current Visit: Yes Code(s): L97.922 - Non-pressure chronic ulcer of unspecified part of left lower leg with fat layer exposed (2) Type 2 diabetes mellitus with diabetic polyneuropathy Status: Chronic Current Visit: Yes Qualifiers: Code(s): E11.42 - Type 2 diabetes mellitus with diabetic polyneuropathy (3) Peripheral vascular disease Status: Ruled-out Current Visit: Yes Code(s): I73.9 - Peripheral vascular disease, unspecified Type of Wound Date of Service: 12/22/18 Chief Complaint: Left leg ulcer History of Wound: Mr Montalvo is a 78 yo man who presents to the wound center for evaluation and treatment of an ulcer that developed on his left lower leg on October 29, 2018. He had pain and erythema and was treated for cellulitis with antibiotics, he does not remember the exact name. Several days later he noticed a pustule which opened and began draining. He saw his primary care and was treated with silvadene which he has been applying and then covering with gauze. He was also treated with a second antibiotic that he thinks may have bee ciprofloxacin for 14 days. The ulcer has decresed in size somewhat but has not healed. He admits drainage from the ulcer but denies pain or erythema surrounding the ulcer. He has not been using any compression. He denies fever, chills or odor. Progress of Wound: Transfer of care. Will like to come on Wednesdays. Being managed for left medial leg ulcer. Has been applying Buffy daily. Missed his last appointment. Denies any increase drainage or pain. Feels well otherwise. - Physical Exam Vital Signs Temp Pulse Resp BP 98.0 F 67 18 145/75 H 12/22/18 11:28 12/22/18 11:28 12/22/18 11:28 12/22/18 11:28 General: Alert, Oriented x3, Cooperative, No apparent distress HEENT: Atraumatic, Normocephalic Oral: Moist Mucosa Neck: Supple Lungs: Normal air movement Cardiovascular: Regular rate, Regular Rhythm, Normal S1, Normal S2 Abdomen: Soft, Non Tender Extremities: No cyanosis Skin: Ulcer/ Wound Wound Measurements and Assessment WC - Nurse 1 - General Ulcer Measurement Start: 12/22/18 11:28 Freq: Status: Active Protocol: Activity Type Activity Date Activity User E-Sign Co-Sign Detail Recorded Client Recorded Date Recorded By Document 12/22/18 11:28 [id number] 12/22/18 11:30 12/22/18 11:28 Wound Center Nurse 1 [Ulcer Assessment] #3- L MED LE -Combined with other wound No -Current Size (cm) - Length 0.4 -Current Size (cm) - Width 0.4 -Current Size (cm) - Depth 0.1 -Total Square Cm 0.16 -Photo Taken No -Epithelialization None Present -Tunneling No -Undermining/Tunneling No -Circular Undermining No -Exudate Amt None Present -Wound Margin Indistinct, Non -Visible -Granulation Amt None Present (0 %) -Slough/Fibrin Yes -Necrosis Amt Large (67-100%) -Necrotic Tissue Type Adherent Slough -Structure Exposed N/A -Texture (Ro-wound Skin Appearance) Assessed -Moisture (Ro-wound Skin Appearance Assessed,Dry/ ) Scaly -Color (Ro-wound Skin Appearance) Assessed -Temperature (Ro-wound Skin No Abnormality Appearance) (Pt Warm) -Tenderness on Palpation (Ro-wound No Skin Appearance) -Ulcer Cleansing Rinsed/ Irrigated with Saline -Foul Odor after Cleansing No -Anesthetic Used 4% Lidocaine Solution [Edema Assessment] -Lower Limb Edema Present Yes -Left Calf (cm) 31 -Left Ankle (cm) 20.5 WC - Nurse 2 - General Ulcer CM Notes Start: 12/22/18 11:28 Freq: Status: Active Protocol: Activity Type Activity Date Activity User E-Sign Co-Sign Detail Recorded Client Recorded Date Recorded By Document 12/22/18 12:00 [id number] 12/22/18 12:06 12/22/18 12:00 Wound Center Nurse 2 [Procedure/Treatment] #3- L MED LE -Time 12:05 -Correct Patient Yes -Correct Side, Site, Position Yes -Correct Procedure Yes -Procedure Performed Yes -Type of Procedure Debridement -Clinical Debridement Subcutaneous -Post Debridement Size (cm) - Length 0.6 -Post Debridement Size (cm) - Width 0.5 -Post Debridement Size (cm) - Depth 0.2 -Total Square Cm 0.30 -Wound/Ulcer Outcome Not Healed -Ulcer Cleansing Rinsed/ Irrigated with Saline -Foul Odor after Cleansing No -Bioengineered Tissue No -Bleeding Controlled with Pressure -Offloading No -Treatment Response Procedure Tolerated Well [See Physician Procedure note for Specifics] Pain Scale: 0-10 Numeric [Pain] -Is Patient Pain Free? Yes Musculoskeletal: No Muscle Wasting Neurological: Cranial nerves II-XII grossly intact Psych/Mental Status: Normal Affect Debridement Note Post-Debridement Measurements/Treatment WC - Nurse 2 - General Ulcer CM Notes Start: 12/22/18 11:28 Freq: Status: Active Protocol: Activity Type Activity Date Activity User E-Sign Co-Sign Detail Recorded Client Recorded Date Recorded By Document 12/22/18 12:00 MW [id number] 12/22/18 12:06 MW 12/22/18 12:00 Wound Center Nurse 2 #3- L MED LE -Time 12:05 -Correct Patient Yes -Correct Side, Site, Position Yes -Correct Procedure Yes -Procedure Performed Yes -Type of Procedure Debridement -Clinical Debridement Subcutaneous -Post Debridement Size (cm) - Length 0.6 -Post Debridement Size (cm) - Width 0.5 -Post Debridement Size (cm) - Depth 0.2 -Total Square Cm 0.30 -Wound/Ulcer Outcome Not Healed -Ulcer Cleansing Rinsed/ Irrigated with Saline -Foul Odor after Cleansing No -Bioengineered Tissue No -Bleeding Controlled with Pressure -Offloading No -Treatment Response Procedure Tolerated Well Pain Scale: 0-10 Numeric Is Patient Pain Free? Yes Wound debrided: Left leg Type of Debridement: Excisional debridement Anesthesia Used: 4% Lidocaine Solution Depth: Down to and including healthy tissue, in the subcutaneous layer Percentage of wound debrided: 100 Instrument Used: 3mm curette Tissue Removed: Slough and devitalized tissue Severity: Fat Layer Exposed Amount of bleeding with debridement: Mild Bleeding Controlled with: Pressure Patient tolerated procedure well Assessment/Plan Active Problems Type 2 diabetes mellitus with diabetic polyneuropathy (Chronic) Ulcer of left lower extremity with fat layer exposed (Acute) Assessment: left medial LE venous ulcer Plan: Debridement done as documented above. Procedure was well-tolerated. Switch to Promogran daily with Adaptic over top. Elevate lower extremities when seated in bed. Continue Tubigrip for compression. Increase protein intake and optimal blood sugar control also recommended. His questions were answered and he was advised to call with any further questions or concerns. Follow-up in 1 week. This note was generated with Dragon dictation software. It may contain incorrect words, spelling, and punctuation that were not noted in checking the note before signing.
[2018-12-29 11:06] VITALS: BP 144/69; PULSE 61; RESP 16; TEMP 36.1; BMI 29.5
--- NOTE | 2018-12-29 11:27 | PN.PCM_ITS ---
(1) Ulcer of left lower extremity with fat layer exposed Status: Acute Current Visit: Yes Code(s): L97.922 - Non-pressure chronic ulcer of unspecified part of left lower leg with fat layer exposed (2) Type 2 diabetes mellitus with diabetic polyneuropathy Status: Chronic Current Visit: Yes Qualifiers: Code(s): E11.42 - Type 2 diabetes mellitus with diabetic polyneuropathy (3) Peripheral vascular disease Status: Ruled-out Current Visit: Yes Code(s): I73.9 - Peripheral vascular disease, unspecified Type of Wound Date of Service: 12/29/18 Chief Complaint: Left leg ulcer History of Wound: Mr Montalvo is a 78 yo man who presents to the wound center for evaluation and treatment of an ulcer that developed on his left lower leg on October 29, 2018. He had pain and erythema and was treated for cellulitis with antibiotics, he does not remember the exact name. Several days later he noticed a pustule which opened and began draining. He saw his primary care and was treated with silvadene which he has been applying and then covering with gauze. He was also treated with a second antibiotic that he thinks may have bee ciprofloxacin for 14 days. The ulcer has decresed in size somewhat but has not healed. He admits drainage from the ulcer but denies pain or erythema surrounding the ulcer. He has not been using any compression. He denies fever, chills or odor. Progress of Wound: Improving. No new concerns at this time. - Physical Exam Vital Signs Temp Pulse Resp BP 96.9 F L 61 16 144/69 H 12/29/18 11:06 12/29/18 11:06 12/29/18 11:06 12/29/18 11:06 General: Alert, Oriented x3, Cooperative, No apparent distress HEENT: Atraumatic, Normocephalic Oral: Moist Mucosa Neck: Supple Lungs: Normal air movement Abdomen: Non Tender, Obese Extremities: No cyanosis Skin: Ulcer/ Wound Wound Measurements and Assessment WC - Nurse 1 - General Ulcer Measurement Start: 12/22/18 11:28 Freq: Status: Active Protocol: Activity Type Activity Date Activity User E-Sign Co-Sign Detail Recorded Client Recorded Date Recorded By Document 12/29/18 11:06 [facility] [id number] 12/29/18 11:11 [facility] 12/29/18 11:06 Wound Center Nurse 1 [Ulcer Assessment] #3- L MED LE -Combined with other wound No -Current Size (cm) - Length 0.4 -Current Size (cm) - Width 0.4 -Current Size (cm) - Depth 0.1 -Total Square Cm 0.16 -Photo Taken No -Epithelialization None Present -Tunneling No -Undermining/Tunneling No -Circular Undermining No -Exudate Amt Small -Exudate Type Serous -Wound Margin Distinct, Outline Attached -Granulation Amt None Present (0 %) -Slough/Fibrin Yes -Necrosis Amt Large (67-100%) -Necrotic Tissue Type Adherent Slough -Texture (Ro-wound Skin Appearance) Assessed, Scarring -Moisture (Ro-wound Skin Appearance Assessed ) -Color (Ro-wound Skin Appearance) Assessed -Temperature (Ro-wound Skin No Abnormality Appearance) (Pt Warm) -Tenderness on Palpation (Ro-wound No Skin Appearance) -Ulcer Cleansing Rinsed/ Irrigated with Saline -Foul Odor after Cleansing No -Anesthetic Used 5% Lidocaine Gel [Edema Assessment] -Lower Limb Edema Present Yes -Left Calf (cm) 31.2 -Left Ankle (cm) 20.7 WC - Nurse 2 - General Ulcer CM Notes Start: 12/22/18 11:28 Freq: Status: Active Protocol: Activity Type Activity Date Activity User E-Sign Co-Sign Detail Recorded Client Recorded Date Recorded By Document 12/29/18 11:19 MW [id number] 12/29/18 11:22 MW 12/29/18 11:19 Wound Center Nurse 2 [Procedure/Treatment] #3- L MED LE -Time 11:22 -Correct Patient Yes -Correct Side, Site, Position Yes -Correct Procedure Yes -Procedure Performed Yes -Type of Procedure Debridement -Clinical Debridement Subcutaneous -Post Debridement Size (cm) - Length 0.3 -Post Debridement Size (cm) - Width 0.3 -Post Debridement Size (cm) - Depth 0.2 -Total Square Cm 0.09 -Wound/Ulcer Outcome Not Healed -Ulcer Cleansing Rinsed/ Irrigated with Saline -Foul Odor after Cleansing No -Bioengineered Tissue No -Bleeding Controlled with Pressure -Offloading No -Treatment Response Procedure Tolerated Well [See Physician Procedure note for Specifics] Pain Scale: 0-10 Numeric [Pain] -Is Patient Pain Free? Yes Musculoskeletal: No Muscle Wasting Neurological: Cranial nerves II-XII grossly intact Psych/Mental Status: Normal Affect Debridement Note Post-Debridement Measurements/Treatment WC - Nurse 2 - General Ulcer CM Notes Start: 12/22/18 11:28 Freq: Status: Active Protocol: Activity Type Activity Date Activity User E-Sign Co-Sign Detail Recorded Client Recorded Date Recorded By Document 12/22/18 12:00 MW [id number] 12/22/18 12:06 MW Document 12/29/18 11:19 MW [id number] 12/29/18 11:22 MW 12/22/18 12/29/18 12:00 11:19 Wound Center Nurse 2 #3- L MED LE -Time 12:05 11:22 -Correct Patient Yes Yes -Correct Side, Site, Position Yes Yes -Correct Procedure Yes Yes -Procedure Performed Yes Yes -Type of Procedure Debridement Debridement -Clinical Debridement Subcutaneous Subcutaneous -Post Debridement Size (cm) - Length 0.6 0.3 -Post Debridement Size (cm) - Width 0.5 0.3 -Post Debridement Size (cm) - Depth 0.2 0.2 -Total Square Cm 0.30 0.09 -Wound/Ulcer Outcome Not Healed Not Healed -Ulcer Cleansing Rinsed/ Rinsed/ Irrigated with Irrigated with Saline Saline -Foul Odor after Cleansing No No -Bioengineered Tissue No No -Bleeding Controlled with Pressure Pressure -Offloading No No -Treatment Response Procedure Procedure Tolerated Well Tolerated Well Pain Scale: 0-10 Numeric Is Patient Pain Free? Yes Yes Wound debrided: Left Leg ( medial ) Wound Grade/Stage: Stage II Type of Debridement: Excisional debridement Anesthesia Used: 4% Lidocaine Solution Depth: Down to and including healthy tissue, in the subcutaneous layer Percentage of wound debrided: 100 Instrument Used: - - 1mm Tissue Removed: Slough and devitalized tissue Severity: Fat Layer Exposed Amount of bleeding with debridement: Mild Bleeding Controlled with: Pressure Patient tolerated procedure well Assessment/Plan Active Problems Type 2 diabetes mellitus with diabetic polyneuropathy (Chronic) Ulcer of left lower extremity with fat layer exposed (Acute) Assessment: left medial LE venous ulcer Plan: Improving. Debridement done as documented above. Procedure was well- tolerated. Continue Promogran daily with Adaptic over top. Elevate lower extremities when seated and in bed. Continue Tubigrip for compression. Increase protein intake and optimal blood sugar control also recommended. His questions were answered and he was advised to call with any further questions or concerns. Follow-up in 1 week. This note was generated with Webcollageation software. It may contain incorrect words, spelling, and punctuation that were not noted in checking the note before signing.
== END 2019-01-10 23:59 ==
LOC: WC 11:15
PROVIDERS: Family Provider Internal Medicine; PCP Internal Medicine; Referring Provider Internal Medicine; Visit Provider Internal Medicine
DX: E11.622 Type 2 diabetes mellitus with other skin ulcer (principal); E11.42 Type 2 diabetes mellitus with diabetic polyneuropathy; E11.51 Type 2 diabetes mellitus with diabetic peripheral angiopathy without gangrene; L97.822 Non-pressure chronic ulcer of other part of left lower leg with fat layer exposed
CPT/HCPCS: 11042

== ENCOUNTER 2019-01-12 10:49 | Outpatient (RCR) | payer MEDICARE, SELFPAY ==
[2019-01-11 01:08] VITALS: BP 144/69; PULSE 61; RESP 16; TEMP 36.1
== END 2019-02-10 23:59 ==
LOC: WC 10:49
PROVIDERS: Family Provider Internal Medicine; PCP Internal Medicine; Referring Provider Internal Medicine; Visit Provider Internal Medicine
DX: Z09 Encounter for follow-up examination after completed treatment for conditions other than malignant neoplasm (principal)